=== PATIENT | male | born 1950 | race Caucasian/White ===

== ENCOUNTER 2018-01-28 16:37 | Inpatient (IN) | payer OTHER ==
--- NOTE | 2018-01-28 16:42 | PDOC ---
Attending Attestation - HPI HPI: 01/28/18 18:32 The patient is a 67 year old male with a significant PMH of prostate cancer and HTN brought in by EMS for altered mental status. Patient had come from [place] to see his sister who is currently sick. Patients sister has an aid who noticed the patient was in bed all day and then heard the patient making a lot of commotion on his way to the bathroom earlier today. As per the aid, the patient knew his name and was walking, but was altered prompting the aid to activate EMS. Patient had a tonic clonic seizure en route to the ER that lasted for approximately 1 minute, witnessed by EMS. At presentation, patient is agitated. Allergies: NKA - Physicial Exam PE: 01/28/18 18:32 Vitals: Triage Vital signs reviewed General Appearance: (+) Agitated. (+) Moaning and writhing in pain. Head: Atraumatic, normocephalic Eyes: Pupils equal reactive round, extraocular movement intact Ears: TM's normal bilaterally; Nose: Nares patent bilaterally;no nasal congestion Throat: Posterior oropharynx without erythema, mucous membranes moist, Neck: Supple;No Nuchal rigidity Chest Wall: (+) Bruising to the ribs. Cardiac: Regular rate and rhythm, no murmurs, no rubs, no gallops, Lungs: Clear to auscultation bilateral, good air movement bilaterally, Abdomen: Soft, nondistended, normal bowel sounds, nontender to palpation Extremities: (+) Abrasion to the leg. Full range of motion to all extremities, no cyanosis, clubbing, or edema Skin: Warm and dry, no rashes or lesions, no petechiae Neuro: (+) Altered. (+) Moving all extremities. Psych: normal mood, normal affect <Jaci Linn - Last Filed: 01/28/18 18:35> - Resident Resident Name: Vikas Echeverria - ED Attending Attestation I have performed the following: I have examined & evaluated the patient, The case was reviewed & discussed with the resident, I agree w/resident's findings & plan, Exceptions are as noted - Critical Care Time Total Critical Care Time: 65 Critical Care Statement: The care of this patient involved high complexity decision making to prevent further life threatening deterioration of the patient 's condition and/or to evaluate & treat vital organ system(s) failure or risk of failure. - Medical Decision Making 01/28/18 19:42 The patient is a 67 year old male with a significant PMH of prostate cancer and HTN brought in by EMS for altered mental status. Patient had come from [place] to see his sister who is currently sick. Patients sister has an aid who noticed the patient was in bed all day and then heard the patient making a lot of commotion on his way to the bathroom earlier today. As per the aid, the patient knew his name and was walking, but was altered prompting the aid to activate EMS. Patient had a tonic clonic seizure en route to the ER that lasted for approximately 1 minute, witnessed by EMS. At presentation, patient is agitated. Upon arrival to the ED given altered mental status stat head CT ordered. 2 mg Ativan given for sedation. No bleed noted on head CT. Patient remained agitated not following commands additional 2 mg Ativan given. Patient saturations transiently dropped remained agitated given concern for patient's ability to protect airway decision made to intubate patient Patient intubated successfully. Blood work remarkable for WBC of 34 on secondary survey some ecchymosis noted patient's back decision made to perform cervical spine CT as well as CT IV contrast chest abdomen pelvis CTs pending. Patient has been covered with Zosyn. Neurology has been consult. Patient has been loaded with 1.5 g of Keppra. He is currently intubated on a propofol drip. Dr. Woo to follow up patient's CAT scans. If no acute etiology of patient' s elevated white blood cell count which also may be secondary to seizure, will perform lumbar puncture Patient to be admitted to ICU for definitive management. ICU aware <Wang Lui - Last Filed: 01/28/18 19:44>
[2018-01-28] MEDS ORDERED: SODIUM CHLORIDE 1,000 ML IV SCH (16:45)
--- NOTE | 2018-01-28 16:45 | PDOC ---
History of Present Illness - General Chief Complaint: Seizure Stated Complaint: SEIZURE Time Seen by Provider: 01/28/18 16:41 - History of Present Illness Initial Comments: 01/28/18 20:55 67 yo M w/ a hx of Cabg, HTN, thyroid disease, prostate cancer was brought into the ED from [facility] in an altered state. He was not conversant at any point in the ER. The story from the sister was that the patient went to the bathroom and then they heard a thump. EMS brought the patient in, he was sent to cat scan to r/o stroke and then he started having a tonic clonic seizure. He was given Ativan early in his stay. 01/28/18 20:58 01/28/18 22:24 Past History - Past Medical History Allergies/Adverse Reactions: Allergies Allergy/AdvReac Type Severity Reaction Status Date / Time No Allergy Information Allergy Verified 01/28/18 17:28 Available Home Medications: Ambulatory Orders Clopidogrel Bisulfate [Clopidogrel] 75 mg PO DAILY 01/28/18 Levothyroxine [Synthroid -] 25 mcg PO DAILY 01/28/18 Metoprolol Tartrate [Lopressor -] 25 mg PO BID 01/28/18 Ranitidine [Zantac -] 150 mg PO DAILY 01/28/18 Tadalafil [Cialis] 20 mg PO DAILY 01/28/18 Venlafaxine HCl [Effexor -] 75 mg PO DAILY 01/28/18 Review of Systems - Review of Systems Able to Perform ROS?: No *Physical Exam - Physical Exam Comments: 01/28/18 20:59 GENERAL: Patient is altered, not alert, and rolling around the bed in pain. HEENT: He has blood in his oral cavity from biting his lips. PERRLA. NC/AT. No conjunctival pallor. Sclera are non-icteric. NECK: No JVD. No thyromegaly. No lymphadenopathy. CARDIOVASCULAR: Tachycardic, regular rhythym. No murmurs, rubs, or gallops. Distal pulses are 2 + and symmetric. PULMONARY: Patient has bilateral breath sounds - no crackles, rales or ronchi. ABDOMINAL: Soft. Non-tender. Non-distended. No rebound or guarding. No organomegaly. Normoactive bowel sounds. MUSCULOSKELETAL Normal range of motion at all joints. No bony deformities or tenderness. EXTREMITIES: No cyanosis. No clubbing. No edema. No calf tenderness. SKIN: There is a rash on the R side of the patients back. Warm and dry. Normal capillary refill. NEUROLOGICAL: Normoreflexic in the upper and lower extremities. Toes are down-going bilaterally. Procedures - Intubation Time of Intubation: 18:15 Intubation Method: orotracheal Blade used: Mac Tube Size (Fr): 7.5 Medications: Etomidate, Succinylcholine Tube position @ lip (cm): 24 Tube position confirmed by: Direct visualization, CO2 detector, Chest x-ray, Breath sounds Breath Sounds after Intubation: equal Intubation Complications: no complications Post Intubation Xray: Yes (tube in right place) - Lumbar Puncture Indication: AMS CT Scan: Yes Betadine Prep: Yes Position: Left lateral decubitus Site: L4-L51 Local Anesthesia: 1% Lidocaine with epi Volume(ml): 10 Lumbar Puncture Kit: Adult Needle Size(gauge): 18 Opening Pressure(mmHg): 22 Traumatic Tap: No Tubes Obtained: 4 Clear Fluid: Yes Complications: No ED Treatment Course - LABORATORY CBC & Chemistry Diagram: 01/28/18 17:30 01/28/18 17:30 Medical Decision Making - Medical Decision Making 01/28/18 21:05 Patient arrived to ED altered, he got a head CT, started seizing and was given ativan. Head CT was negative for bleed. Patient was subsequently intubated for agitation in order to get a abraham scan. Abraham scan was negative. Gave the patient a spinal tap to assess for meningitis. Patient admitted to ICU. 01/28/18 22:21 *DC/Admit/Observation/Transfer Diagnosis at time of Disposition: Seizure - Discharge Dispostion Condition at time of disposition: Critical Decision to Admit order: Yes - Referrals - Patient Instructions - Post Discharge Activity
[2018-01-28] MEDS ORDERED: LORazepam 2 MG/ML SDV VIAL ONE ×2 (16:46→17:15)
[2018-01-28] MEDS ORDERED: LORazepam 2 MG/ML SDV VIAL IVPUSH ONE (17:17)
[2018-01-28 17:50] LABS: BASO % 0.5 % (0-2.0); EOS % 0.1 % (0-4.5); HEMATOCRIT 46.9 % (35.4-49); HEMOGLOBIN 15.8 GM/dL (11.7-16.9); LYMPH % 5.9 % (8-40); MCH 29.4 pg (25.7-33.7); MCHC 33.7 g/dl (32.0-35.9); MEAN CELL VOLUME 87.3 fl (80-96); MONO % 6.5 % (3.8-10.2); PLATELET COUNT 328 K/MM3 (134-434); RBC 5.37 M/mm3 (4.00-5.60); RDW 13.4 % (11.9-15.9)
[2018-01-28 17:52] LABS: WHITE BLOOD COUNT 34.2 K/mm3 (4.0-10.0)
[2018-01-28] MEDS ORDERED: RAPID SEQUENCE INTUBATION KIT NR ONE (17:57)
[2018-01-28 17:59] LABS: VENOUS PC02 45.6 mmHg (38-52); VENOUS PO2 35.9 mmHg (28-48)
[2018-01-28] MEDS ORDERED: SUCCINYLCHOLINE CHLORIDE 200 MG/10 ML VIAL IVPUSH ONE (17:59)
[2018-01-28] MEDS ORDERED: ETOMIDATE 40 MG/20 ML VIAL IVPUSH ONE (17:59)
[2018-01-28] MEDS ORDERED: PIPERACILLIN/TAZOB 3.375 GM 3.375 GM in DEXTROSE 5%-WATER - 50 ML IVPB ONE (17:59)
[2018-01-28 18:00] LABS: VENOUS PH 7.16 (7.32-7.42)
[2018-01-28 18:01] LABS: URINE APPEARANCE CLOUDY; URINE BILIRUBIN NEGATIVE (<2.0 mg/dL); URINE COLOR YELLOW; URINE GLUCOSE (UA) 3+ (NEGATIVE); URINE KETONE TRACE (NEGATIVE); URINE LEUK ESTERASE NEGATIVE (NEGATIVE); URINE NITRITE NEGATIVE (NEGATIVE); URINE UROBILINOGEN NEGATIVE mg/dL (0.2-1.0)
[2018-01-28] MEDS ORDERED: PROPOFOL 1,000,000 MCG/100 ML VIAL ONE ×2 (18:02→20:31)
[2018-01-28 18:03] LABS: URINE PROTEIN 2+ (NEGATIVE)
[2018-01-28] MEDS ORDERED: PIPERACILLIN/TAZOB 3.375 GM 3.375 GM/50 ML BAG IVPB ONE (18:03)
[2018-01-28 18:04] LABS: EPI CELLS RARE /HPF (FEW); URINE BACTERIA RARE /hpf (NONE SEEN); URINE HYALINE CAST 7 /lpf; URINE MUCUS RARE
[2018-01-28 18:13] LABS: INR 1.11 (0.83-1.09); PROTHROMBIN TIME (PATIENT) 12.5 SEC (9.7-13.0)
[2018-01-28] MEDS ORDERED: PROPOFOL 1,000,000 MCG/100 ML VIAL IVPB SCH ×2 (18:15→20:15)
[2018-01-28] MEDS ORDERED: levETIRAcetam 500 MG/5 ML INJECTION VIAL IVPB ONE ×2 (18:22→19:47)
[2018-01-28 18:25] LABS: ALBUMIN 4.1 g/dl (3.4-5.0); ANION GAP 23 MMOL/L (8-16); BLOOD UREA NITROGEN 20 mg/dL (7-18); CALCIUM 9.3 mg/dL (8.5-10.1); CHLORIDE 104 mmol/L (98-107); CHOLESTEROL 156 mg/dL (50-200); CO2 16 mmol/L (21-32); CREATININE 1.7 mg/dL (0.7-1.3); GLUCOSE,RANDOM 266 mg/dL (74-106); SGOT/AST 35 U/L (15-37); SGPT/ALT 44 U/L (12-78); SODIUM 143 mmol/L (136-145); TRIGLYCERIDES 191 mg/dL (35-160)
[2018-01-28 18:27] LABS: ALK PHOS 139 U/L (45-117); BILIRUBIN,TOTAL 0.6 mg/dL (0.2-1.0); HDL CHOLESTEROL 45 mg/dL (40-60); TOT PROT 7.6 g/dl (6.4-8.2)
[2018-01-28 19:42] LABS: ARTERIAL BLD GAS O2 SATURATION 99.5 % (90-98.9); ARTERIAL BLOOD GAS BASE EXCESS -6.1 meq/l (-2-2); ARTERIAL BLOOD GAS PCO2 33.5 mmHg (35-45); ARTERIAL BLOOD GAS pH 7.35 (7.35-7.45); CARBOXYHEMOGLOBIN 1.3 gm% (0.5-2.0)
--- NOTE | 2018-01-28 19:45 | PN ---
Teaching Attending Note Name of Resident: Jozef Lay ATTENDING PHYSICIAN STATEMENT I saw and evaluated the patient. I reviewed the resident's note and discussed the case with the resident. I agree with the resident's findings and plan as documented. SUBJECTIVE: Patient is a 67 year old man with a significant PMH of metastatic prostate cancer and HTN brought in by EMS for altered mental status. Patient had come from [place] to see his sister who is currently sick. Patients sister has an aid who noticed the patient was in bed all day and then heard the patient making a lot of commotion on his way to the bathroom earlier today. As per the aid, the patient knew his name and was walking, but was altered prompting the aid to activate EMS. Patient had a tonic clonic seizure en route to the ER that lasted for approximately 1 minute, witnessed by EMS. At presentation, patient is agitated and had a high AG metabolic acidosis as well as severe lactic acidosis. He was intubated in the ER and is on propofol. OBJECTIVE: Intubated and sedated on propofol Vital Signs Period Temp Pulse Resp BP Sys/Quintero Pulse Ox Last 24 Hr 99.6 F-99.6 F 120-147 12-30 157-213/93-136 100-100 HEENT: No Jaundice, eye redness or discharge, PERRLA, Normocephalic, atraumatic. External ears are normal. No nasal discharge. Neck: Supple, nontender. No palpable adenopathy or thyromegaly. No JVD Chest: Good effort. Clear to auscultation and percussion. Heart: Regular. No S3, rub or murmur Abdomen: Not distended, soft, nontender and no HSM. No rebound or guarding. Normoactive bowel sounds. Ext: Peripheral pulses intact. No leg edema. Skin: Warm and dry. No petechiae, rash or ecchymosis. Neuro: Sedated on propofol. Current Medications Generic Name Dose Route Start Last Admin Trade Name Freq PRN Reason Stop Dose Admin Sodium Chloride 1,000 mls @ 42 mls/hr 01/28/18 16:45 01/28/18 17:30 Normal Saline - IV 42 mls/hr ASDIR ANUPAMA Administration Propofol 1,000,000 mcg in 100 mls @ 3.946 mls/hr 01/28/18 18:15 01/28/18 18: 53 Diprivan - IVPB 40 mcg/kg/min TITR ANUPAMA 31.57 mls/hr Titration Protocol 5 MCG/KG/MIN Home Medications Medication Instructions Recorded Clopidogrel Bisulfate [Clopidogrel] 75 mg PO DAILY 01/28/18 Levothyroxine [Synthroid -] 25 mcg PO DAILY 01/28/18 Metoprolol Tartrate [Lopressor -] 25 mg PO BID 01/28/18 Ranitidine [Zantac -] 150 mg PO DAILY 01/28/18 Tadalafil [Cialis] 20 mg PO DAILY 01/28/18 Venlafaxine HCl [Effexor -] 75 mg PO DAILY 01/28/18 Abnormal Lab Results 01/28/18 01/28/18 01/28/18 17:30 17:30 17:30 WBC 34.2 H* Absolute Neuts (auto) 29.8 H Neutrophils % 87.0 H Lymphocytes % 5.9 L INR 1.11 H VBG pH Mixed VBG HCO3 Carbon Dioxide 16 L Anion Gap 23 H BUN 20 H Creatinine 1.7 H Random Glucose 266 H Lactic Acid Alkaline Phosphatase 139 H Creatine Kinase 370 H Troponin I 0.08 H Triglycerides 191 H Total LDL Cholesterol 101 H Urine Protein Urine Glucose (UA) Urine Ketones Urine Blood 01/28/18 01/28/18 01/28/18 17:30 17:41 17:41 WBC Absolute Neuts (auto) Neutrophils % Lymphocytes % INR VBG pH 7.16 L* Mixed VBG HCO3 15.8 L Carbon Dioxide Anion Gap BUN Creatinine Random Glucose Lactic Acid 13.0 H* Alkaline Phosphatase Creatine Kinase Troponin I Triglycerides Total LDL Cholesterol Urine Protein 2+ H Urine Glucose (UA) 3+ H Urine Ketones Trace H Urine Blood 2+ H ASSESSMENT AND PLAN: 1. Sepsis and AMS - Head CT scan does not show any acute abnormality. Patient is getting a spinal tap to rule out meningitis. Already got Zosyn, but will also give Ampicillin, Vancomycin and Ceftriaxone. Seizure and metastatic prostate cancer may be contributing to AMS. No history of DM obtained - we are checking with his pharmacy for medication list. Findings suggest "euglycemic" DKA - the high AG is not entirely explainable by lactic acidosis. Will treat with IV NS, IV insulin and monitor BMP according to DKA protocol in the ICU. Continue Keppra 750 mg IV q 12 hours. Abnormal LFTs johnny be due to sepsis - will trend LFTs. Elevated troponin may signal demand ischemia and effects of INGE - will rule out ACS. No changes of ACS on EKG. Consult neurology and ID. 2. INGE - Likely chiefly due to dehydration but proteinuria suggests underlying kidney disease. Continue IV fluids and consult nephrology. Avoid nephrotoxic agents such as NSAIDS, aminoglycosides, contrast dyes and certain Alternative medicine products. 3. Obesity - Will provide patient all the necessary assistance , counseling and positive reinforcement to facilitate weight loss. Consult matrix bath attendant. 4. DVT prophylaxis - Heparin 5000u sq tid. 5. Advance directives - Full code
[2018-01-28 20:24] LABS: COCAINE, UR NEGATIVE ng/ml (CUTOFF=300); OPIATES, URI NEGATIVE ng/ml (CUTOFF=300); PHENCYCLIDINE,URINE NEGATIVE ng/ml (CUTOFF=25); URINE AMPHETAMINES NEGATIVE ng/ml (CUTOFF=500); URINE BARBITURATES NEGATIVE ng/ml (CUTOFF=200); URINE BENZODIAZEPINES NEGATIVE ng/ml (CUTOFF=200)
[2018-01-28 20:25] LABS: METHADONE, UR NEGATIVE ng/ml (CUTOFF=300)
[2018-01-28] MEDS ORDERED: VANCOMYCIN 2,000 MG in DEXTROSE 5%-WATER - 500 ML IVPB ONE (20:49)
[2018-01-28] MEDS ORDERED: ACETAMINOPHEN 1000 MG/100 ML VIAL (NON FORMULARY) IVPB ONE (20:54)
[2018-01-28] MEDS ORDERED: ACETAMINOPHEN INJECTION 100 ML IVPB ONE (20:55)
[2018-01-28] MEDS ORDERED: CEFTRIAXONE 2 GM-D5W BAG 2 GM/50 ML BAG IVPB ONE (21:00)
[2018-01-28] MEDS ORDERED: AMPICILLIN SODIUM 2 GM VIAL ONE (21:25)
[2018-01-28] MEDS ORDERED: CEFTRIAXONE 2 GM/100 ML BAG IVPB ONE (21:26)
--- NOTE | 2018-01-28 21:36 | HP ---
CHIEF COMPLAINT: Seizure, AMS PCP: HISTORY OF PRESENT ILLNESS: 67 yo male with PMH metastatic prostate CA, Hypothyroid, HTN, presented to the ED via EMS after being noted to have AMS at home. History from ED note and signout as pt intubated and sedated. Pt reportedly spent a lot of the day in bed. He is in town visiting his sister. His sister's aide reported he was making a lot of commotion on the way to the bathroom. Pt was oriented to self but noted to be altered so EMS was called. He apparently had a witnessed seizure on the way to the ED. Further history unknown. Discussed with ED provider who states the pts sister is coming in. ER course was notable for: (1) VBG pH 7.16, Pt agitated, Intubated and Sedated (2) CT Head, neck, chest, abdomen: no hemorrhage noted, left renal cyst (3) Zosyn Recent Travel: PAST MEDICAL HISTORY: Metastatic Prostate CA Hypothyroid HTN PAST SURGICAL HISTORY: Pt with hx of CABG as per sister Social History: Smoking: unknown Alcohol: unknown Drugs: unknown TOX screen negative Family History: Allergies No Allergy Information Available Allergy (Verified 01/28/18 17:28) HOME MEDICATIONS: Home Medications Medication Instructions Recorded Clopidogrel Bisulfate [Clopidogrel] 75 mg PO DAILY 01/28/18 Levothyroxine [Synthroid -] 25 mcg PO DAILY 01/28/18 Metoprolol Tartrate [Lopressor -] 25 mg PO BID 01/28/18 Ranitidine [Zantac -] 150 mg PO DAILY 01/28/18 Tadalafil [Cialis] 20 mg PO DAILY 01/28/18 Venlafaxine HCl [Effexor -] 75 mg PO DAILY 01/28/18 REVIEW OF SYSTEMS Unable to obtain PHYSICAL EXAMINATION Vital Signs - 24 hr 01/28/18 01/28/18 01/28/18 16:45 16:47 17:00 Temperature 99.6 F 99.6 F Pulse Rate 147 H Pulse Rate [ Apical] Respiratory 24 Rate Blood Pressure 157/97 Blood Pressure [Left Arm] O2 Sat by Pulse 100 100 100 Oximetry (%) 01/28/18 01/28/18 01/28/18 17:15 18:00 18:10 Temperature Pulse Rate Pulse Rate [ 135 H 130 H 133 H Apical] Respiratory 30 H 12 20 Rate Blood Pressure Blood Pressure 157/98 197/110 172/105 [Left Arm] O2 Sat by Pulse 100 100 Oximetry (%) 01/28/18 01/28/18 01/28/18 18:15 18:30 18:43 Temperature Pulse Rate Pulse Rate [ 129 H 120 H Apical] Respiratory 18 12 12 Rate Blood Pressure Blood Pressure 166/93 179/120 [Left Arm] O2 Sat by Pulse 100 100 Oximetry (%) 01/28/18 01/28/18 01/28/18 19:11 19:15 19:30 Temperature Pulse Rate Pulse Rate [ 128 H 116 H 125 H Apical] Respiratory 16 18 21 Rate Blood Pressure Blood Pressure 213/136 172/103 171/105 [Left Arm] O2 Sat by Pulse 100 100 100 Oximetry (%) 01/28/18 19:46 Temperature Pulse Rate Pulse Rate [ 125 H Apical] Respiratory 16 Rate Blood Pressure Blood Pressure 130/91 [Left Arm] O2 Sat by Pulse 100 Oximetry (%) GENERAL: Intubated and sedated no acute distress HEAD: Normocephalic, atraumatic. EYES: PERRL, no scleral icterus EARS, NOSE, THROAT: ET tube in place, oropharynx clear without exudates. Moist mucous membranes. NECK: supple without lymphadenopathy LUNGS: mechanical breath sounds but otherwise CTA b/l, no crackles or wheezes HEART: Tachycardic, Regular rhythm, normal S1 and S2 without murmur, rub or gallop. ABDOMEN: Soft, nondistended, normoactive bowel sounds MUSCULOSKELETAL: No bony deformities or tenderness. No CVA tenderness. UPPER EXTREMITIES: 2+ pulses, warm, well-perfused. No cyanosis. No clubbing. No peripheral edema. LOWER EXTREMITIES: 2+ pulses, warm, well-perfused. No calf tenderness. No peripheral edema. NEUROLOGICAL: Intubated and sedated, grasp reflex noted SKIN: Warm, dry, normal turgor, no rashes or lesions noted Laboratory Results - last 24 hr 01/28/18 01/28/18 01/28/18 17:30 17:30 17:30 WBC 34.2 H* RBC 5.37 Hgb 15.8 Hct 46.9 MCV 87.3 MCH 29.4 MCHC 33.7 RDW 13.4 Plt Count 328 MPV 10.0 Absolute Neuts (auto) 29.8 H Neutrophils % 87.0 H Neutrophils % (Manual) 79.0 Band Neutrophils % 8.0 Lymphocytes % 5.9 L Lymphocytes % (Manual) 6.0 L Monocytes % 6.5 Monocytes % (Manual) 7 Eosinophils % 0.1 Eosinophils % (Manual) 0.0 Basophils % 0.5 Basophils % (Manual) 0.0 Nucleated RBC % 0 PT with INR 12.50 INR 1.11 H Anticoagulation Therapy Puncture Site ABG pH ABG pCO2 at Pt Temp ABG pO2 at Pt Temp ABG HCO3 ABG O2 Sat (Measured) ABG O2 Content ABG Base Excess Shashi Test VBG pH POC VBG pCO2 POC VBG pO2 Mixed VBG HCO3 Carboxyhemoglobin Methemoglobin O2 Delivery Device Oxygen Flow Rate Vent Mode Vent Rate Mechanical Rate Pressure Support Vent Sodium 143 Potassium 4.0 Chloride 104 Carbon Dioxide 16 L Anion Gap 23 H BUN 20 H Creatinine 1.7 H Creat Clearance w eGFR 40.65 Random Glucose 266 H Lactic Acid Calcium 9.3 Total Bilirubin 0.6 AST 35 ALT 44 Alkaline Phosphatase 139 H Creatine Kinase 370 H Creatine Kinase Index 0.5 CK-MB (CK-2) 1.95 Troponin I 0.08 H Total Protein 7.6 Albumin 4.1 Triglycerides 191 H Cholesterol 156 Total LDL Cholesterol 101 H HDL Cholesterol 45 TSH Urine Color Urine Appearance Urine pH Ur Specific [place] Urine Protein Urine Glucose (UA) Urine Ketones Urine Blood Urine Nitrite Urine Bilirubin Urine Urobilinogen Ur Leukocyte Esterase Urine WBC (Auto) Urine RBC (Auto) Ur Epithelial Cells Urine Bacteria Hyaline Casts Urine Mucus Opiates Screen Methadone Screen Barbiturate Screen Phencyclidine Screen Ur Amphetamines Screen MDMA (Ecstasy) Screen Benzodiazepines Screen Cocaine Screen U Marijuana (THC) Screen Blood Type Antibody Screen 01/28/18 01/28/18 01/28/18 17:30 17:30 17:30 WBC RBC Hgb Hct MCV MCH MCHC RDW Plt Count MPV Absolute Neuts (auto) Neutrophils % Neutrophils % (Manual) Band Neutrophils % Lymphocytes % Lymphocytes % (Manual) Monocytes % Monocytes % (Manual) Eosinophils % Eosinophils % (Manual) Basophils % Basophils % (Manual) Nucleated RBC % PT with INR INR Anticoagulation Therapy Puncture Site ABG pH ABG pCO2 at Pt Temp ABG pO2 at Pt Temp ABG HCO3 ABG O2 Sat (Measured) ABG O2 Content ABG Base Excess Shashi Test VBG pH POC VBG pCO2 POC VBG pO2 Mixed VBG HCO3 Carboxyhemoglobin Methemoglobin O2 Delivery Device Oxygen Flow Rate Vent Mode Vent Rate Mechanical Rate Pressure Support Vent Sodium Potassium Chloride Carbon Dioxide Anion Gap BUN Creatinine Creat Clearance w eGFR Random Glucose Lactic Acid 13.0 H* Calcium Total Bilirubin AST ALT Alkaline Phosphatase Creatine Kinase Creatine Kinase Index CK-MB (CK-2) Troponin I Total Protein Albumin Triglycerides Cholesterol Total LDL Cholesterol HDL Cholesterol TSH 2.58 Urine Color Urine Appearance Urine pH Ur Specific [place] Urine Protein Urine Glucose (UA) Urine Ketones Urine Blood Urine Nitrite Urine Bilirubin Urine Urobilinogen Ur Leukocyte Esterase Urine WBC (Auto) Urine RBC (Auto) Ur Epithelial Cells Urine Bacteria Hyaline Casts Urine Mucus Opiates Screen Methadone Screen Barbiturate Screen Phencyclidine Screen Ur Amphetamines Screen MDMA (Ecstasy) Screen Benzodiazepines Screen Cocaine Screen U Marijuana (THC) Screen Blood Type A POSITIVE Antibody Screen Negative 01/28/18 01/28/18 01/28/18 17:41 17:41 19:20 WBC RBC Hgb Hct MCV MCH MCHC RDW Plt Count MPV Absolute Neuts (auto) Neutrophils % Neutrophils % (Manual) Band Neutrophils % Lymphocytes % Lymphocytes % (Manual) Monocytes % Monocytes % (Manual) Eosinophils % Eosinophils % (Manual) Basophils % Basophils % (Manual) Nucleated RBC % PT with INR INR Anticoagulation Therapy No Result Required. Puncture Site No Result Required. ABG pH 7.35 ABG pCO2 at Pt Temp 33.5 L ABG pO2 at Pt Temp 221.0 H* ABG HCO3 18.1 L ABG O2 Sat (Measured) 99.5 H ABG O2 Content 21.0 ABG Base Excess -6.1 L Shashi Test No Result Required. VBG pH 7.16 L* POC VBG pCO2 45.6 POC VBG pO2 35.9 Mixed VBG HCO3 15.8 L Carboxyhemoglobin 1.3 Methemoglobin 1.7 H O2 Delivery Device No Result Required. Oxygen Flow Rate No Result Required. Vent Mode No Result Required. Vent Rate No Result Required. Mechanical Rate No Result Required. Pressure Support Vent No Result Required. Sodium Potassium Chloride Carbon Dioxide Anion Gap BUN Creatinine Creat Clearance w eGFR Random Glucose Lactic Acid Calcium Total Bilirubin AST ALT Alkaline Phosphatase Creatine Kinase Creatine Kinase Index CK-MB (CK-2) Troponin I Total Protein Albumin Triglycerides Cholesterol Total LDL Cholesterol HDL Cholesterol TSH Urine Color Yellow Urine Appearance Cloudy Urine pH 5.0 Ur Specific [place] 1.013 Urine Protein 2+ H Urine Glucose (UA) 3+ H Urine Ketones Trace H Urine Blood 2+ H Urine Nitrite Negative Urine Bilirubin Negative Urine Urobilinogen Negative Ur Leukocyte Esterase Negative Urine WBC (Auto) 2 Urine RBC (Auto) 2 Ur Epithelial Cells Rare Urine Bacteria Rare Hyaline Casts 7 Urine Mucus Rare Opiates Screen Methadone Screen Barbiturate Screen Phencyclidine Screen Ur Amphetamines Screen MDMA (Ecstasy) Screen Benzodiazepines Screen Cocaine Screen U Marijuana (THC) Screen Blood Type Antibody Screen 01/28/18 01/28/18 19:38 19:39 WBC RBC Hgb Hct MCV MCH MCHC RDW Plt Count MPV Absolute Neuts (auto) Neutrophils % Neutrophils % (Manual) Band Neutrophils % Lymphocytes % Lymphocytes % (Manual) Monocytes % Monocytes % (Manual) Eosinophils % Eosinophils % (Manual) Basophils % Basophils % (Manual) Nucleated RBC % PT with INR INR Anticoagulation Therapy Puncture Site ABG pH ABG pCO2 at Pt Temp ABG pO2 at Pt Temp ABG HCO3 ABG O2 Sat (Measured) ABG O2 Content ABG Base Excess Shashi Test VBG pH POC VBG pCO2 POC VBG pO2 Mixed VBG HCO3 Carboxyhemoglobin Methemoglobin O2 Delivery Device Oxygen Flow Rate Vent Mode Vent Rate Mechanical Rate Pressure Support Vent Sodium Potassium Chloride Carbon Dioxide Anion Gap BUN Creatinine Creat Clearance w eGFR Random Glucose Lactic Acid 7.8 H* Calcium Total Bilirubin AST ALT Alkaline Phosphatase Creatine Kinase Creatine Kinase Index CK-MB (CK-2) Troponin I Total Protein Albumin Triglycerides Cholesterol Total LDL Cholesterol HDL Cholesterol TSH Urine Color Urine Appearance Urine pH Ur Specific [place] Urine Protein Urine Glucose (UA) Urine Ketones Urine Blood Urine Nitrite Urine Bilirubin Urine Urobilinogen Ur Leukocyte Esterase Urine WBC (Auto) Urine RBC (Auto) Ur Epithelial Cells Urine Bacteria Hyaline Casts Urine Mucus Opiates Screen Negative Methadone Screen Negative Barbiturate Screen Negative Phencyclidine Screen Negative Ur Amphetamines Screen Negative MDMA (Ecstasy) Screen Negative Benzodiazepines Screen Negative Cocaine Screen Negative U Marijuana (THC) Screen Negative Blood Type Antibody Screen ASSESSMENT/PLAN: 67 yo male with PMH Prostate CA, Hypothyroid, HTN admitted to the ICU with AMS s /p seizure, sepsis possibly secondary to meningitis. Sepsis unknown source: possibly meningitis -Pt arrived to ED in Post-ictal state, noted to be agitated as well, unable to give history -Pt intubated and sedated in ED -WBC 34, LA 13, Absolute neutrophil count 29.8, afebrile on arrival to ED, will repeat temp now as not recorded in EMR over last 5 hours -Romano CT: no acute bleed, some b/l atelecasis in the lung bases, large left renal cyst, diverticulosis with no evidence of diverticulitits -Given Zosyn in ED -Pt needs spinal tap GABRIEL -Will send CSF profile for cell counts, glucose, total protein, cultures, Lactic acid, EBV, HSV, Lyme, VDRL, West Nile -Add Vancomycin 15 mg/kg (2gm) IV stat following spinal tap -Cetfriaxone 2 gm IV stat following spinal tap -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 as pt is 67 with medical history not completely known -ID consult Ordered, will await for further coverage recommendations Seizure, unsure if new onset -Seizure activity could be secondary to meningitis, vs prior/new onset seizure disorder, vs hypoglycemia (unlikely) -pt received ativan and keppra loading dose in ED -ED consulted neurology for evaluation -Will continue Keppra 750 mg IV BID -Awaiting neurology recommendations for further workup Mildly elevated blood glucose with elevated anion gap -Pt sister denies hx of Diabetes -Medication bottles gathered from pt's personal belongings did not contain any diabetes meds -Anion gap 23 could be secondary Lactic acidosis, LA 13 in ED -UA noted with 3+ glucose and trace ketones -A1C ordered in addition to repeat BMP stat Hypothyroid -pt on Synthroid 25 mcg PO daily at home -TSH noted 2.58 -Will restart synthroid, confirmed with pharmacy, can be given via OG tube if pt requires continued mechanical ventilation and ET tube HTN -pt on Lopressor 25 mg PO BID at home, intubated/NPO -Pt arrived with systolic in 190s -Currently 150s systolic -No hemorrhage noted on head CT -Will hold bp meds for now as to not lower bp too quickly -Can restart in AM IV DVT Prophylaxis -Heparin 5000 units SQ TID FEN -Fluids: NS @ 100 cc/hr -Electrolytes: No electrolyte abnormalities, repeat BMP with Mg and Phos -Nutrition: NPO Disposition ICU Visit type - Emergency Visit Emergency Visit: Yes ED Registration Date: 01/28/18 Care time: The patient presented to the Emergency Department on the above date and was hospitalized for further evaluation of their emergent condition. - New Patient This patient is new to me today: Yes Date on this admission: 01/29/18 - Critical Care Critical Care patient: Yes Total Critical Care Time (in minutes): 120 Critical Care Statement: The care of this patient involved high complexity decision making to prevent further life threatening deterioration of the patient 's condition and/or to evaluate & treat vital organ system(s) failure or risk of failure. Hospitalist Screening - Colonoscopy Questionnaire Colonoscopy Questionnaire: Colonoscopy Questionnaire - Patient: 50 - 75 years old and never had a screening colonoscopy: Unknown History of colon or rectal polyps, or CA: Unknown History of IBD, Crohn's disease or UC: Unknown History of abdominal radiation therapy as a child: Unknown - Relative: 1 with colon or rectal CA, or polyps at age 60 or younger: Unknown Colon or rectal CA diagnosed at age 45 or younger: Unknown Multiple relatives with colon or rectal CA: Unknown - Outcome: Screening Result: Negative Screen
[2018-01-28] MEDS: AMPICILLIN - 2 GM in SODIUM CHLORIDE 100 ML IVPB SCH (21:38)
[2018-01-28] MEDS ORDERED: CHLORHEXIDINE GLUCONATE 4% CLEANSER FOR DECOLONIZATION TP SCH (22:00)
[2018-01-28] MEDS ORDERED: SODIUM CHLORIDE IVPB SCH (22:00)
[2018-01-28] MEDS ORDERED: AMPICILLIN IVPB SCH (22:00)
[2018-01-28 22:31] LABS: CSF APPEARANCE CLEAR; CSF COLOR COLORLESS; CSF WBC 1
[2018-01-28 22:42] LABS: GLUCOSE,CSF 133 mg/dL (50-80)
[2018-01-28 22:54] LABS: ANION GAP 16 MMOL/L (8-16); BLOOD UREA NITROGEN 20 mg/dL (7-18); CALCIUM 8.2 mg/dL (8.5-10.1); CHLORIDE 108 mmol/L (98-107); CO2 19 mmol/L (21-32); CREATININE 1.1 mg/dL (0.7-1.3); GLUCOSE,RANDOM 148 mg/dL (74-106); POTASSIUM 3.5 mmol/L (3.5-5.1); SODIUM 143 mmol/L (136-145)
[2018-01-28 22:56] LABS: MAGNESIUM 2.5 mg/dL (1.8-2.4); PHOSPHOROUS 2.5 mg/dL (2.5-4.9)
--- NOTE | 2018-01-28 22:57 | CONSULT ---
Consultation: REQUESTING PROVIDER: CONSULT REQUEST: ICU HISTORY OF PRESENT ILLNESS: The patient is a 67 yo male with PMH prostate CA, hypothyroidism, HTN, CABG, presented to the hospital for AMS, s/p seizure in ambulance on route to hospital and another episode in ED. He was given Ativan 2 mg x 2 and Keppra 1500 mg IV and intubated for airway protection. The patient was found to have fever 101.7F, CT head, CT chest, abdomen/pelvis CT, c-spine CT no acute pathology, ekg no acute changes, labs: WBC 34.2, neut 87, AG 23, Cr 1.7, BUN 20 , glu 266, LA 7.8, Alk. Phos 139, CK 370, trop 0.08, CSF pending. On arrival to ICU the patient is intubated, on sedation, VS: BP 142/84, HR 119, vent settings:12/450/50/5. Repeated CMP: AG 16, BUN 20, Cr 1.1, trop 0.42. History is taken from medical documentation, no family at bedside. PSH/FH/SH: unknown REVIEW OF SYSTEMS: N/A PHYSICAL EXAMINATION Vital Signs - 24 hr 01/28/18 01/28/18 01/28/18 16:45 16:47 17:00 Temperature 99.6 F 99.6 F Pulse Rate 147 H Pulse Rate [ Apical] Respiratory 24 Rate Blood Pressure 157/97 Blood Pressure [Left Arm] O2 Sat by Pulse 100 100 100 Oximetry (%) 01/28/18 01/28/18 01/28/18 17:15 18:00 18:10 Temperature Pulse Rate Pulse Rate [ 135 H 130 H 133 H Apical] Respiratory 30 H 12 20 Rate Blood Pressure Blood Pressure 157/98 197/110 172/105 [Left Arm] O2 Sat by Pulse 100 100 Oximetry (%) 01/28/18 01/28/18 01/28/18 18:15 18:30 18:43 Temperature Pulse Rate Pulse Rate [ 129 H 120 H Apical] Respiratory 18 12 12 Rate Blood Pressure Blood Pressure 166/93 179/120 [Left Arm] O2 Sat by Pulse 100 100 Oximetry (%) 01/28/18 01/28/18 01/28/18 19:11 19:15 19:30 Temperature Pulse Rate Pulse Rate [ 128 H 116 H 125 H Apical] Respiratory 16 18 21 Rate Blood Pressure Blood Pressure 213/136 172/103 171/105 [Left Arm] O2 Sat by Pulse 100 100 100 Oximetry (%) 01/28/18 01/28/18 01/28/18 19:46 22:00 22:46 Temperature 101.7 F H Pulse Rate 119 H Pulse Rate [ 125 H 121 H Apical] Respiratory 16 18 20 Rate Blood Pressure 142/84 Blood Pressure 130/91 131/90 [Left Arm] O2 Sat by Pulse 100 100 99 Oximetry (%) 01/28/18 22:49 Temperature Pulse Rate Pulse Rate [ Apical] Respiratory 24 Rate Blood Pressure Blood Pressure [Left Arm] O2 Sat by Pulse Oximetry (%) GENERAL: Sedated, intubated. HEAD: Normal with no signs of trauma. EYES: Pupils equal, round and reactive to light. EARS, NOSE, THROAT: Oropharynx clear without exudates. NECK: Supple without lymphadenopathy, JVD, or masses. LUNGS: Breath sounds equal, clear to auscultation bilaterally. No wheezes, and no crackles. No accessory muscle use. HEART: Regular rate and rhythm, normal S1 and S2 without murmur, rub or gallop. ABDOMEN: Soft, nontender, not distended, normoactive bowel sounds, no guarding, no rebound, no masses. UPPER EXTREMITIES: No peripheral edema. LOWER EXTREMITIES: 2+ pulses, no peripheral edema. NEUROLOGICAL: Sedated SKIN: Warm, dry, longitudinal scar in chest, another one below umbilicus, no rash. Laboratory Results - last 24 hr 01/28/18 01/28/18 01/28/18 17:30 17:30 17:30 WBC 34.2 H* RBC 5.37 Hgb 15.8 Hct 46.9 MCV 87.3 MCH 29.4 MCHC 33.7 RDW 13.4 Plt Count 328 MPV 10.0 Absolute Neuts (auto) 29.8 H Neutrophils % 87.0 H Neutrophils % (Manual) 79.0 Band Neutrophils % 8.0 Lymphocytes % 5.9 L Lymphocytes % (Manual) 6.0 L Monocytes % 6.5 Monocytes % (Manual) 7 Eosinophils % 0.1 Eosinophils % (Manual) 0.0 Basophils % 0.5 Basophils % (Manual) 0.0 Nucleated RBC % 0 PT with INR 12.50 INR 1.11 H Anticoagulation Therapy Puncture Site ABG pH ABG pCO2 at Pt Temp ABG pO2 at Pt Temp ABG HCO3 ABG O2 Sat (Measured) ABG O2 Content ABG Base Excess Shashi Test VBG pH POC VBG pCO2 POC VBG pO2 Mixed VBG HCO3 Carboxyhemoglobin Methemoglobin O2 Delivery Device Oxygen Flow Rate Vent Mode Vent Rate Mechanical Rate Pressure Support Vent Sodium 143 Potassium 4.0 Chloride 104 Carbon Dioxide 16 L Anion Gap 23 H BUN 20 H Creatinine 1.7 H Creat Clearance w eGFR 40.65 Random Glucose 266 H Lactic Acid Calcium 9.3 Total Bilirubin 0.6 AST 35 ALT 44 Alkaline Phosphatase 139 H Creatine Kinase 370 H Creatine Kinase Index 0.5 CK-MB (CK-2) 1.95 Troponin I 0.08 H Total Protein 7.6 Albumin 4.1 Triglycerides 191 H Cholesterol 156 Total LDL Cholesterol 101 H HDL Cholesterol 45 TSH Urine Color Urine Appearance Urine pH Ur Specific [place] Urine Protein Urine Glucose (UA) Urine Ketones Urine Blood Urine Nitrite Urine Bilirubin Urine Urobilinogen Ur Leukocyte Esterase Urine WBC (Auto) Urine RBC (Auto) Ur Epithelial Cells Urine Bacteria Hyaline Casts Urine Mucus CSF Appearance CSF Color CSF WBC CSF RBC CSF Glucose CSF Total Protein Opiates Screen Methadone Screen Barbiturate Screen Phencyclidine Screen Ur Amphetamines Screen MDMA (Ecstasy) Screen Benzodiazepines Screen Cocaine Screen U Marijuana (THC) Screen Blood Type Antibody Screen 01/28/18 01/28/18 01/28/18 17:30 17:30 17:30 WBC RBC Hgb Hct MCV MCH MCHC RDW Plt Count MPV Absolute Neuts (auto) Neutrophils % Neutrophils % (Manual) Band Neutrophils % Lymphocytes % Lymphocytes % (Manual) Monocytes % Monocytes % (Manual) Eosinophils % Eosinophils % (Manual) Basophils % Basophils % (Manual) Nucleated RBC % PT with INR INR Anticoagulation Therapy Puncture Site ABG pH ABG pCO2 at Pt Temp ABG pO2 at Pt Temp ABG HCO3 ABG O2 Sat (Measured) ABG O2 Content ABG Base Excess Shashi Test VBG pH POC VBG pCO2 POC VBG pO2 Mixed VBG HCO3 Carboxyhemoglobin Methemoglobin O2 Delivery Device Oxygen Flow Rate Vent Mode Vent Rate Mechanical Rate Pressure Support Vent Sodium Potassium Chloride Carbon Dioxide Anion Gap BUN Creatinine Creat Clearance w eGFR Random Glucose Lactic Acid 13.0 H* Calcium Total Bilirubin AST ALT Alkaline Phosphatase Creatine Kinase Creatine Kinase Index CK-MB (CK-2) Troponin I Total Protein Albumin Triglycerides Cholesterol Total LDL Cholesterol HDL Cholesterol TSH 2.58 Urine Color Urine Appearance Urine pH Ur Specific [place] Urine Protein Urine Glucose (UA) Urine Ketones Urine Blood Urine Nitrite Urine Bilirubin Urine Urobilinogen Ur Leukocyte Esterase Urine WBC (Auto) Urine RBC (Auto) Ur Epithelial Cells Urine Bacteria Hyaline Casts Urine Mucus CSF Appearance CSF Color CSF WBC CSF RBC CSF Glucose CSF Total Protein Opiates Screen Methadone Screen Barbiturate Screen Phencyclidine Screen Ur Amphetamines Screen MDMA (Ecstasy) Screen Benzodiazepines Screen Cocaine Screen U Marijuana (THC) Screen Blood Type A POSITIVE Antibody Screen Negative 01/28/18 01/28/18 01/28/18 17:41 17:41 19:20 WBC RBC Hgb Hct MCV MCH MCHC RDW Plt Count MPV Absolute Neuts (auto) Neutrophils % Neutrophils % (Manual) Band Neutrophils % Lymphocytes % Lymphocytes % (Manual) Monocytes % Monocytes % (Manual) Eosinophils % Eosinophils % (Manual) Basophils % Basophils % (Manual) Nucleated RBC % PT with INR INR Anticoagulation Therapy No Result Required. Puncture Site No Result Required. ABG pH 7.35 ABG pCO2 at Pt Temp 33.5 L ABG pO2 at Pt Temp 221.0 H* ABG HCO3 18.1 L ABG O2 Sat (Measured) 99.5 H ABG O2 Content 21.0 ABG Base Excess -6.1 L Shashi Test No Result Required. VBG pH 7.16 L* POC VBG pCO2 45.6 POC VBG pO2 35.9 Mixed VBG HCO3 15.8 L Carboxyhemoglobin 1.3 Methemoglobin 1.7 H O2 Delivery Device No Result Required. Oxygen Flow Rate No Result Required. Vent Mode No Result Required. Vent Rate No Result Required. Mechanical Rate No Result Required. Pressure Support Vent No Result Required. Sodium Potassium Chloride Carbon Dioxide Anion Gap BUN Creatinine Creat Clearance w eGFR Random Glucose Lactic Acid Calcium Total Bilirubin AST ALT Alkaline Phosphatase Creatine Kinase Creatine Kinase Index CK-MB (CK-2) Troponin I Total Protein Albumin Triglycerides Cholesterol Total LDL Cholesterol HDL Cholesterol TSH Urine Color Yellow Urine Appearance Cloudy Urine pH 5.0 Ur Specific [place] 1.013 Urine Protein 2+ H Urine Glucose (UA) 3+ H Urine Ketones Trace H Urine Blood 2+ H Urine Nitrite Negative Urine Bilirubin Negative Urine Urobilinogen Negative Ur Leukocyte Esterase Negative Urine WBC (Auto) 2 Urine RBC (Auto) 2 Ur Epithelial Cells Rare Urine Bacteria Rare Hyaline Casts 7 Urine Mucus Rare CSF Appearance CSF Color CSF WBC CSF RBC CSF Glucose CSF Total Protein Opiates Screen Methadone Screen Barbiturate Screen Phencyclidine Screen Ur Amphetamines Screen MDMA (Ecstasy) Screen Benzodiazepines Screen Cocaine Screen U Marijuana (THC) Screen Blood Type Antibody Screen 01/28/18 01/28/18 01/28/18 19:38 19:39 20:00 WBC RBC Hgb Hct MCV MCH MCHC RDW Plt Count MPV Absolute Neuts (auto) Neutrophils % Neutrophils % (Manual) Band Neutrophils % Lymphocytes % Lymphocytes % (Manual) Monocytes % Monocytes % (Manual) Eosinophils % Eosinophils % (Manual) Basophils % Basophils % (Manual) Nucleated RBC % PT with INR INR Anticoagulation Therapy Puncture Site ABG pH ABG pCO2 at Pt Temp ABG pO2 at Pt Temp ABG HCO3 ABG O2 Sat (Measured) ABG O2 Content ABG Base Excess Shashi Test VBG pH POC VBG pCO2 POC VBG pO2 Mixed VBG HCO3 Carboxyhemoglobin Methemoglobin O2 Delivery Device Oxygen Flow Rate Vent Mode Vent Rate Mechanical Rate Pressure Support Vent Sodium Potassium Chloride Carbon Dioxide Anion Gap BUN Creatinine Creat Clearance w eGFR Random Glucose Lactic Acid 7.8 H* Calcium Total Bilirubin AST ALT Alkaline Phosphatase Creatine Kinase Creatine Kinase Index CK-MB (CK-2) Troponin I Total Protein Albumin Triglycerides Cholesterol Total LDL Cholesterol HDL Cholesterol TSH Urine Color Urine Appearance Urine pH Ur Specific [place] Urine Protein Urine Glucose (UA) Urine Ketones Urine Blood Urine Nitrite Urine Bilirubin Urine Urobilinogen Ur Leukocyte Esterase Urine WBC (Auto) Urine RBC (Auto) Ur Epithelial Cells Urine Bacteria Hyaline Casts Urine Mucus CSF Appearance CSF Color CSF WBC CSF RBC CSF Glucose 133 H CSF Total Protein 66 H Opiates Screen Negative Methadone Screen Negative Barbiturate Screen Negative Phencyclidine Screen Negative Ur Amphetamines Screen Negative MDMA (Ecstasy) Screen Negative Benzodiazepines Screen Negative Cocaine Screen Negative U Marijuana (THC) Screen Negative Blood Type Antibody Screen 01/28/18 20:00 WBC RBC Hgb Hct MCV MCH MCHC RDW Plt Count MPV Absolute Neuts (auto) Neutrophils % Neutrophils % (Manual) Band Neutrophils % Lymphocytes % Lymphocytes % (Manual) Monocytes % Monocytes % (Manual) Eosinophils % Eosinophils % (Manual) Basophils % Basophils % (Manual) Nucleated RBC % PT with INR INR Anticoagulation Therapy Puncture Site ABG pH ABG pCO2 at Pt Temp ABG pO2 at Pt Temp ABG HCO3 ABG O2 Sat (Measured) ABG O2 Content ABG Base Excess Shashi Test VBG pH POC VBG pCO2 POC VBG pO2 Mixed VBG HCO3 Carboxyhemoglobin Methemoglobin O2 Delivery Device Oxygen Flow Rate Vent Mode Vent Rate Mechanical Rate Pressure Support Vent Sodium Potassium Chloride Carbon Dioxide Anion Gap BUN Creatinine Creat Clearance w eGFR Random Glucose Lactic Acid Calcium Total Bilirubin AST ALT Alkaline Phosphatase Creatine Kinase Creatine Kinase Index CK-MB (CK-2) Troponin I Total Protein Albumin Triglycerides Cholesterol Total LDL Cholesterol HDL Cholesterol TSH Urine Color Urine Appearance Urine pH Ur Specific [place] Urine Protein Urine Glucose (UA) Urine Ketones Urine Blood Urine Nitrite Urine Bilirubin Urine Urobilinogen Ur Leukocyte Esterase Urine WBC (Auto) Urine RBC (Auto) Ur Epithelial Cells Urine Bacteria Hyaline Casts Urine Mucus CSF Appearance Clear CSF Color Colorless CSF WBC 1 CSF RBC 1 CSF Glucose CSF Total Protein Opiates Screen Methadone Screen Barbiturate Screen Phencyclidine Screen Ur Amphetamines Screen MDMA (Ecstasy) Screen Benzodiazepines Screen Cocaine Screen U Marijuana (THC) Screen Blood Type Antibody Screen Active Medications Generic Name Dose Route Start Last Admin Trade Name Freq PRN Reason Stop Dose Admin Chlorhexidine Gluconate 1 applic 01/28/18 22:00 Hibiclens For Decolonization - TP HS ANUPAMA Heparin Sodium (Porcine) 5,000 unit 01/29/18 06:00 Heparin - SQ TID ANUPAMA Propofol 1,000,000 mcg in 100 mls @ 3.946 mls/hr 01/28/18 20:15 Diprivan - IVPB TITR ANUPAMA Protocol 5 MCG/KG/MIN Sodium Chloride 1,000 mls @ 100 mls/hr 01/28/18 20:41 Normal Saline - IV ASDIR ANUPAMA Ampicillin Sodium 2 gm/ Sodium 100 mls @ 200 mls/hr 01/28/18 22:00 01/28/18 21:38 Chloride IVPB 200 mls/hr Q4H-IV ANUPAMA Administration Protocol Levetiracetam 750 mg 01/29/18 22:00 Keppra Injection - IVPB BID [facility] Mupirocin 1 applic 01/28/18 22:00 Bactroban Ointment (For Decolonization) - NS 02/02/18 21:59 BID [facility] Pneumococcal 13-Valent Conj Vacc 0.5 ml 01/28/18 22:56 Prevnar 13 Syringe - IM 01/28/18 22:57 .ONCE ONE ASSESSMENT/PLAN: The patient is a 67 yo male with PMH prostate CA, hypothyroidism, HTN, CABG, presented to the hospital for AMS, s/p seizure in ambulance on route to hospital and another episode in ED. He is admitted to ICU s/p acute respiratory failure that required intubation, s/p seizure, severe sepsis. Acute respiratory failure Seizure Severe sepsis r/o meningitis lactic acidosis elevated troponin, r/o ACS INGE HTN CAD, s/p CABG hypothyroidism Plan: AMS, seizure- imaging studies negative for acute pathology, may be related to cancer, sepsis also r/o meningitis Will continue IVF-NS at 100 cc/hr will cont broad spectrum antibiotics; given Zosyn in ED. Will continue Ampicillin, Vancomycin, Ceftriaxone blood cultures pending, CSF pending f/u LA f/u troponins and repeat EKG in AM vent support, sedation continue Keppra 750 mg IV BID hold BP meds for now f/u nephro, neuro and ID recommendations DVT PPX Heparin sq FULL CODE Dispo: We will continue to follow the patient. Thank you for this consultative opportunity. Problem List - Problems (1) Hypothyroidism Code(s): E03.9 - HYPOTHYROIDISM, UNSPECIFIED (2) Prostate cancer Code(s): C61 - MALIGNANT NEOPLASM OF PROSTATE (3) Failed CABG (coronary artery bypass graft) Code(s): T82.218A - [facility] COMPL OF CORONARY ARTERY BYPASS GRAFT, INIT ENCNTR (4) Seizure Code(s): R56.9 - UNSPECIFIED CONVULSIONS Visit type - Emergency Visit Emergency Visit: Yes ED Registration Date: 01/28/18 Care time: The patient presented to the Emergency Department on the above date and was hospitalized for further evaluation of their emergent condition. - New Patient This patient is new to me today: Yes Date on this admission: 01/29/18 - Critical Care Critical Care patient: Yes Total Critical Care Time (in minutes): 40 Critical Care Statement: The care of this patient involved high complexity decision making to prevent further life threatening deterioration of the patient 's condition and/or to evaluate & treat vital organ system(s) failure or risk of failure.
[2018-01-28] MEDS: SODIUM CHLORIDE 1,000 ML IV SCH (23:11)
[2018-01-28] MEDS: MUPIROCIN 2% TOPICAL OINTMENT FOR DECOLONIZATION NS SCH (23:12)
[2018-01-28] MEDS: CHLORHEXIDINE GLUCONATE 4% CLEANSER FOR DECOLONIZATION TP SCH (23:12)
[2018-01-29] MEDS: AMPICILLIN - 2 GM in SODIUM CHLORIDE 100 ML IVPB SCH ×2 (02:00→05:30)
[2018-01-29 02:49] LABS: GLUCOSE,CSF 131 mg/dL (50-80)
[2018-01-29] MEDS ORDERED: HEMOQUE TEST 1 EACH EACH ONE (02:53)
[2018-01-29] MEDS ORDERED: PT OWN MED DRAWER 7, Y5N ONE ×2 (05:22→09:51)
[2018-01-29] MEDS: HEPARIN NA (PORCINE) 5,000 UNITS/ML 1ML VIAL SQ SCH ×3 (05:29→21:26)
[2018-01-29 06:33] LABS: BASO % 0.1 % (0-2.0); HEMATOCRIT 39.1 % (35.4-49); HEMOGLOBIN 13.4 GM/dL (11.7-16.9); LYMPH % 7.4 % (8-40); MCH 28.9 pg (25.7-33.7); MCHC 34.2 g/dl (32.0-35.9); MEAN CELL VOLUME 84.5 fl (80-96); MEAN PLT VOLUME 9.6 fl (7.5-11.1); MONO % 10.8 % (3.8-10.2); NEUT % 81.7 % (42.8-82.8); PLATELET COUNT 196 K/MM3 (134-434); RBC 4.63 M/mm3 (4.00-5.60); RDW 13.9 % (11.9-15.9); WHITE BLOOD COUNT 15.5 K/mm3 (4.0-10.0)
[2018-01-29 07:02] LABS: ALBUMIN 3.2 g/dl (3.4-5.0); CHLORIDE 107 mmol/L (98-107); POTASSIUM 3.7 mmol/L (3.5-5.1); SODIUM 143 mmol/L (136-145)
[2018-01-29 07:31] LABS: SGPT/ALT 44 U/L (12-78)
[2018-01-29 08:33] LABS: ALK PHOS 101 U/L (45-117); ANION GAP 13 MMOL/L (8-16); BILIRUBIN,TOTAL 0.5 mg/dL (0.2-1.0); BLOOD UREA NITROGEN 24 mg/dL (7-18); CO2 23 mmol/L (21-32); CREATININE 1.3 mg/dL (0.7-1.3); GLUCOSE,RANDOM 140 mg/dL (74-106); SGOT/AST 39 U/L (15-37); TOT PROT 5.8 g/dl (6.4-8.2)
--- NOTE | 2018-01-29 08:41 | CON.NEURO ---
Consult - Alcohol/Substance Use Hx Alcohol Use: No - Smoking History Smoking history: Never smoked Have you smoked in the past 12 months: No Home Medications - Allergies Allergies/Adverse Reactions: Allergies Allergy/AdvReac Type Severity Reaction Status Date / Time No Allergy Information Allergy Verified 01/28/18 17:28 Available - Home Medications Home Medications: Ambulatory Orders Clopidogrel Bisulfate [Clopidogrel] 75 mg PO DAILY 01/28/18 Levothyroxine [Synthroid -] 25 mcg PO DAILY 01/28/18 Metoprolol Tartrate [Lopressor -] 25 mg PO BID 01/28/18 Ranitidine [Zantac -] 150 mg PO DAILY 01/28/18 Tadalafil [Cialis] 20 mg PO DAILY 01/28/18 Venlafaxine HCl [Effexor -] 75 mg PO DAILY 01/28/18 Physical Exam-Neuro Vital Signs: Vital Signs Temperature 99.6 F 01/29/18 06:00 Pulse Rate 90 01/29/18 08:31 Respiratory Rate 16 01/29/18 08:31 Blood Pressure 125/76 01/29/18 06:00 O2 Sat by Pulse Oximetry (%) 100 01/29/18 08:31 Labs: CBC, BMP 01/29/18 05:30 01/29/18 05:30 INR, PTT INR 1.11 (0.83-1.09) H 01/28/18 17:30 Assessment/Plan cc episode of new onset seizure and mental status change HPI 67 year old male history of prostate cancer, hypothyroidism, hypertension , came to hospital for confusion and had one episode of tonic clonic seizure. His csf seems to be benign and ct head was normal. His wbc was very high. Oksana is intubated and sedated. He has fever of 101 at hospital. Steven has not had any seizure since yesterday and he is on iv keppra. His utox was negative. PMH as above SH CABG SH,FH , ROS reviewed in chart Allergies No Allergy Information Available Allergy (Verified 01/28/18 17:28) HOME MEDICATIONS: Home Medications Medication Instructions Recorded Clopidogrel Bisulfate [Clopidogrel] 75 mg PO DAILY 01/28/18 Levothyroxine [Synthroid -] 25 mcg PO DAILY 01/28/18 Metoprolol Tartrate [Lopressor -] 25 mg PO BID 01/28/18 Ranitidine [Zantac -] 150 mg PO DAILY 01/28/18 Tadalafil [Cialis] 20 mg PO DAILY 01/28/18 Venlafaxine HCl [Effexor -] 75 mg PO DAILY 01/28/18 Neurological Examination intubated and sedated he is comatose, there is mild withdrawal to pain pupils is reactive, corneal and gag reflex is positive no active seizure or twitching was seen neck if slightly sitffness( csf looks benign , could be due to arthritis in neck ) rest of exam is not possible Lab and data csf protein 66 sugar 131 wbc is 1 blood wbc was 35 yeterday and today 15 ct unremarkable Assessment- New onset seizure, no acute findings on ct scan , seizure is under control . 2. high wbc, source of infection is not known and csf seems benign PLAN 1. MRI of brain with contrast once stable, 2. EEG 3. Continue keppra 1500 mg iv bid 4. Abx as per ID, suspician for meningitis and encephalitis is low 5. would follow [facility] Thanking you so much Sherman Huggins MD
[2018-01-29] MEDS ORDERED: ALBUTEROL SO4 0.083% IH SOL 2.5 MG/3 ML VIAL.NEB. NEB PRN (08:50)
[2018-01-29] MEDS ORDERED: PNEUMOC 13-VAL CONJ-DIP CRM/PF 0.5 ML DISP.SYRIN IM ONE (09:00)
--- NOTE | 2018-01-29 09:42 | PN ---
Progress Note (short form) - Note Progress Note: ID consult dictated imp/reccd 67 year old man pmh prostate cancer, CAD s/p cabg admitted with new onset seizures, agitation leukocytosis, lactic acidosis s/p LP received vanco/rocephin/amp/zosyn overnight intubated in ED now awake and alert fever/new onset seizures doubt meningitis and encephalitis with normal csf results ?source of sepsis or secondary to seizure suspect he will be extubated today and we can get more history alert and following commands continue ceftriaxone- empiric for sepsis f/u cultures new onset seizure- per neurology over 45 minutes spent in the care of this critically ill icu patient Problem List - Problems (1) New onset seizure Code(s): R56.9 - UNSPECIFIED CONVULSIONS (2) Respiratory failure Code(s): J96.90 - RESPIRATORY FAILURE, UNSP, UNSP W HYPOXIA OR HYPERCAPNIA (3) Fever Code(s): R50.9 - FEVER, UNSPECIFIED (4) Lactic acidosis Code(s): E87.2 - ACIDOSIS
[2018-01-29] MEDS ORDERED: DEXTROSE 5%-WATER 100 ML IVPB ONE (09:51)
[2018-01-29] MEDS ORDERED: PIPERACILLIN/TAZOB 3.375 GM 3.375 GM in DEXTROSE 5%-WATER - 50 ML IVPB SCH (10:00)
--- NOTE | 2018-01-29 10:24 | PN ---
Physical Exam: SUBJECTIVE: Patient is a 67 y/o male with a history of prostate Ca, hypothyroid, HTN, CABG, who is here for AMS. Patient extubated successfully, still altered from baseline. OBJECTIVE: Vital Signs Temperature 100 F H 01/29/18 09:59 Pulse Rate 86 01/29/18 09:59 Respiratory Rate 14 01/29/18 09:59 Blood Pressure 127/76 01/29/18 09:59 O2 Sat by Pulse Oximetry (%) 100 01/29/18 08:31 GENERAL: patient sedated and intubated EYES: PERRL, LUNGS: Breath sounds equal, clear to auscultation bilaterally, HEART: Regular rate and rhythm, S1, S2 ABDOMEN: Soft, nontender, nondistended, normoactive bowel sounds, EXTREMITIES: 2+ pulses, warm, well-perfused, no edema. SKIN: Warm, dry, normal turgor, no rashes or lesions noted CBC, BMP 01/29/18 05:30 01/29/18 05:30 Microbiology 01/28/18 20:00 Cerebral Spinal Fluid - Lumbar Puncture Streptococcus pneumoniae Antigen (M - Final Active Medications Albuterol Sulfate (Ventolin 0.083% Nebulizer Soln -) 1 amp NEB Q4H PRN PRN Reason: SHORT OF BREATH/WHEEZING Chlorhexidine Gluconate (Hibiclens For Decolonization -) 1 applic TP HS ANUPAMA Last Admin: 01/28/18 23:12 Dose: 1 applic Heparin Sodium (Porcine) (Heparin -) 5,000 unit SQ TID ANUPAMA Last Admin: 01/29/18 05:29 Dose: 5,000 unit Propofol (Diprivan -) 1,000,000 mcg in 100 mls @ 3.946 mls/hr IVPB TITR ANUPAMA; Protocol Last Titration: 01/29/18 05:30 Dose: 30 mcg/kg/min, 23.678 mls/hr Sodium Chloride (Normal Saline -) 1,000 mls @ 100 mls/hr IV ASDIR ANUPAMA Last Admin: 01/28/18 23:11 Dose: 100 mls/hr Ceftriaxone Sodium 2 gm/ (Dextrose) 100 mls @ 200 mls/hr IVPB DAILY [facility]; Protocol Levetiracetam (Keppra Injection -) 750 mg IVPB BID ANUPAMA Mupirocin (Bactroban Ointment (For Decolonization) -) 1 applic NS BID ANUPAMA Stop: 02/02/18 21:59 Last Admin: 01/28/18 23:12 Dose: 1 applic ASSESSMENT/PLAN: Patient is a 67 y/o male with a history of prostate Ca, hypothyroid, HTN, CABG, who is here for AMS. #AMS 2/2 to new seizure vs meningitis - Neuro, Dr. Huggins: MRI with contrast once stable, EEG - ID, Dr Syed; Continue Ceftriaxone for broad sepsis coverage - CSF glucose 131, protein 66 - Ceftriazone day 2 - f/u MRI - f/u EEG - head CT: no acute pathology - Keppra 750 BID - intubated satting 100% - lactic acidosis resolved #hyperglycemia - A1C: 6.1 #DVT ppx - heparin TID FEN - NS @ 100 Dispo: f/u medications tomorrow Visit type - Emergency Visit Emergency Visit: No - New Patient This patient is new to me today: Yes Date on this admission: 01/29/18 - Critical Care Critical Care patient: No
[2018-01-29] MEDS: CEFTRIAXONE 2 GM in DEXTROSE 5%-WATER 100 ML IVPB SCH (10:29)
[2018-01-29] MEDS: MUPIROCIN 2% TOPICAL OINTMENT FOR DECOLONIZATION NS SCH ×2 (10:29→21:27)
[2018-01-29 10:37] LABS: MAGNESIUM 2.6 mg/dL (1.8-2.4); PHOSPHOROUS 5.2 mg/dL (2.5-4.9)
--- NOTE | 2018-01-29 11:06 | CONS ---
DATE OF CONSULTATION: DATE OF DICTATION: 01/29/2018 REQUESTING PHYSICIAN: The hospitalist service. HISTORY OF PRESENT ILLNESS: This 67-year-old man, his history entirely from the chart, is apparently visiting from [place] his sister. He has a history of prostate cancer in the past and coronary artery disease status post CABG. He was yesterday apparently in bed all day. He went to use the bathroom. He was not behaving like himself. They called EMS. He apparently had a seizure en route to the emergency room. In the emergency room, he was agitated. CT scan was ordered. The decision was made to intubate, which was done. He had a abraham CT of his head, cervical spine, chest, abdomen, and pelvis, all of which were unremarkable. He had an elevated white count and fever. He had a spinal tap that was unremarkable, as well. He was given vancomycin, ampicillin, ceftriaxone, and Zosyn, admitted to the ICU. Currently, he is awake, his sedation is off, he is following commands. He can move his arms and legs on command. He is hemodynamically stable. PAST MEDICAL HISTORY: Per the chart is notable for history of metastatic prostate cancer, hypothyroidism, and hypertension. He has a history of CABG. He has another. He has had abdominal surgery, has healed incisions, unclear what he had done. SOCIAL HISTORY: Unknown. Per the ER note, he is from [place]. ALLERGIES: No known drug allergy history is available. MEDICATIONS: Plavix, Synthroid, Lopressor, Zantac, Cialis, and Effexor. REVIEW OF SYSTEMS: No review of systems is obtainable. PHYSICAL EXAMINATION General: As stated, he is awake currently. He is alert. He is following commands. Vital signs: His maximum temperature was 101.7, currently 99.6 rectal, blood pressure is 125/76, pulse of 90, respiratory rate 12, he is saturating 100% on 50% FiO2. HEENT: He is normocephalic. He is orally intubated. Neck: Supple. He has no meningeal signs. Lungs: Clear to auscultation. Heart: Regular rate and rhythm. Abdomen: Soft, nontender. He has a well-healed incision from his umbilicus down to his suprapubic area. Extremities: He has ecchymosis on his knee. He has no open skin wounds. DIAGNOSTIC DATA: Labs are notable on admission for a white count of 34,000, repeat was 16.5, hemoglobin is 13.4, platelets are 196. INR was normal. This morning, his BUN is 24 and creatinine is 1.3. AST at 39. Otherwise normal LFTs. Lactic acid on admission was 13, this morning it is 1.6. Urinalysis is notable for 3+ glucose, trace ketones, 2+ blood, 2 white cells. Spinal tap had 1 white cell, 1 red cell, elevated glucose of 131 with a protein of 66. His urine toxicology is negative. As I said before, his imaging studies have all been unremarkable including chest, abdomen and pelvis, and cervical CT as well as head CT. The head CT shows mild to moderate volume loss with no acute intracranial pathology. Blood cultures and CSF fluid cultures are all pending at this time. SUMMARY: 1. This is a 67-year-old man with a past medical history of prostate cancer, coronary artery disease, who presents with new onset seizures, fever, and lactic acidosis. He required intubation to protect his airway. This morning, he is clearly awake with a normal spinal tap making suspicions for meningitis and encephalitis very low. Source of sepsis is not clear. It is unclear if he even has an infection, but given the severity of his white count accompanied by fever, I think it would be reasonable to continue with ceftriaxone until further cultures are back. Currently, he has no evidence by imaging of pneumonia. Hopefully, he will extubated this morning and further history can be obtained. 2. Respiratory failure secondary to change in mental status. 3. Change in mental status, which appears to be resolved. 4. New onset seizures for which he is being evaluated by Neurology. Over 45 minutes was spent in the care and evaluation of this critically ill ICU patient. JASPREET CARBAJAL M.D. [id number]
--- NOTE | 2018-01-29 11:12 | CONSULT ---
Consult Consult Specialty:: Nephrology Reason for Consultation:: INGE - History of Present Illness Chief Complaint: altered mental status History of Present Illness: Pt is a 67 year old male with pmhx of HTN and prostate cancer who presented to the ER with altered mental status. He is visiting [place] from [place]. He had a seizure on the way to the hospital. Pt is now intubated in the ICU. He is unable to give history. Chart was reviewed. Pt was found to be in acute renal failure and I was called to evaluate him. His renal function did improve overnight. It is not clear if he has history of CKD. - History Source History Provided By: Medical Record - Past Medical History Cardio/Vascular: Yes: HTN Gastrointestinal: Yes: GERD Renal/: Yes: Cancer Endocrine: Yes: Hypothyroidism - Alcohol/Substance Use Hx Alcohol Use: No - Smoking History Smoking history: Never smoked Have you smoked in the past 12 months: No Home Medications - Allergies Allergies/Adverse Reactions: Allergies Allergy/AdvReac Type Severity Reaction Status Date / Time No Allergy Information Allergy Verified 01/28/18 17:28 Available - Home Medications Home Medications: Ambulatory Orders Clopidogrel Bisulfate [Clopidogrel] 75 mg PO DAILY 01/28/18 Levothyroxine [Synthroid -] 25 mcg PO DAILY 01/28/18 Metoprolol Tartrate [Lopressor -] 25 mg PO BID 01/28/18 Ranitidine [Zantac -] 150 mg PO DAILY 01/28/18 Tadalafil [Cialis] 20 mg PO DAILY 01/28/18 Venlafaxine HCl [Effexor -] 75 mg PO DAILY 01/28/18 Family Disease History - Family Disease History Family History: Unable to Obtain Review of Systems Unable to obtain ROS, reason: pt intubated Physical Exam Vital Signs: Vital Signs Temperature 100 F H 01/29/18 09:59 Pulse Rate 86 01/29/18 09:59 Respiratory Rate 14 01/29/18 09:59 Blood Pressure 127/76 01/29/18 09:59 O2 Sat by Pulse Oximetry (%) 100 01/29/18 08:31 Constitutional: Yes: Calm, Mild Distress Eyes: Yes: Conjunctiva Clear Cardiovascular: Yes: S1, S2 Respiratory: Yes: Mechanically Ventilated Gastrointestinal: Yes: Soft, Abdomen, Obese Renal/: Yes: Castro Present Musculoskeletal: Yes: Muscle Weakness Edema: No Integumentary: Yes: WNL Neurological: Yes: Lethargy Labs: CBC, BMP 01/29/18 05:30 01/29/18 05:30 Laboratory Tests 01/28/18 01/28/18 01/28/18 17:30 17:30 17:41 WBC 34.2 H* Hgb 15.8 ABG pH ABG pCO2 at Pt Temp Sodium Potassium Carbon Dioxide 16 L Anion Gap 23 H BUN 20 H Creatinine 1.7 H Urine Protein 2+ H Urine Blood 2+ H 01/28/18 01/29/18 01/29/18 19:20 05:30 05:30 WBC 15.5 H Hgb 13.4 ABG pH 7.35 ABG pCO2 at Pt Temp 33.5 L Sodium 143 Potassium 3.7 Carbon Dioxide Anion Gap BUN 24 H Creatinine 1.3 Urine Protein Urine Blood Imaging - Results Chest X-ray: Report Reviewed Cat Scan: Report Reviewed Problem List - Problems (1) INGE (acute kidney injury) Code(s): N17.9 - ACUTE KIDNEY FAILURE, UNSPECIFIED (2) Hypothyroidism Code(s): E03.9 - HYPOTHYROIDISM, UNSPECIFIED (3) Lactic acidosis Code(s): E87.2 - ACIDOSIS (4) New onset seizure Code(s): R56.9 - UNSPECIFIED CONVULSIONS (5) Prostate cancer Code(s): C61 - MALIGNANT NEOPLASM OF PROSTATE Assessment/Plan Current Medications Generic Name Dose Route Start Last Admin Trade Name Freq PRN Reason Stop Dose Admin Acetaminophen 1,000 mg 01/29/18 12:00 Ofirmev Injection - IVPB 01/29/18 12:01 ONCE ONE Albuterol Sulfate 1 amp 01/29/18 08:50 01/29/18 09:00 Ventolin 0.083% Nebulizer Soln - NEB 1 amp Q4H PRN Administration SHORT OF BREATH/WHEEZING Chlorhexidine Gluconate 1 applic 01/28/18 22:00 01/28/18 23:12 Hibiclens For Decolonization - TP 1 applic HS ANUPAMA Administration Heparin Sodium (Porcine) 5,000 unit 01/29/18 06:00 01/29/18 05:29 Heparin - SQ 5,000 unit TID ANUPAMA Administration Propofol 1,000,000 mcg in 100 mls @ 3.946 mls/hr 01/28/18 20:15 01/29/18 05: 30 Diprivan - IVPB 30 mcg/kg/min TITR ANUPAMA 23.678 mls/hr Titration Protocol 5 MCG/KG/MIN Sodium Chloride 1,000 mls @ 100 mls/hr 01/28/18 20:41 01/28/18 23:11 Normal Saline - IV 100 mls/hr ASDIR ANUPAMA Administration Ceftriaxone Sodium 2 gm/ 100 mls @ 200 mls/hr 01/29/18 10:00 01/29/18 10:29 Dextrose IVPB 200 mls/hr DAILY ANUPAMA Administration Protocol Levetiracetam 750 mg 01/29/18 22:00 Keppra Injection - IVPB BID ANUPAMA Mupirocin 1 applic 01/28/18 22:00 01/29/18 10:29 Bactroban Ointment (For Decolonization) - NS 02/02/18 21:59 1 applic BID ANUPAMA Administration Impression 1. INGE 2. seizure 3. altered mental status 4. HTN 5. resp failure 6. prostate cancer 7. CAD 8. hypothyroid 9. lactic acidosis Plan - renal function is improving - lactic acid is improving, can be elevated secondary to seizure - cont to trend lactic acid - check ua and lytes - check renal ultrasound - vent support - monitor urine output - neuro follow up - neuro workup for altered mentation is in progress - monitor wbc - follow cultures Dr Cain
[2018-01-29] MEDS ORDERED: ACETAMINOPHEN 1000 MG/100 ML VIAL (NON FORMULARY) IVPB ONE (12:00)
--- NOTE | 2018-01-29 12:20 | PN ---
Teaching Attending Note Name of Resident: Jason Bauer ATTENDING PHYSICIAN STATEMENT I saw and evaluated the patient. I reviewed the resident's note and discussed the case with the resident. I agree with the resident's findings and plan as documented. SUBJECTIVE: Pt seen and examined in the ICU. Remained intubated overnight. Awake off sedation and tolerated CPAP/PS trials. Extubated during rounds. Blood cultures growing gram positive cocci. OBJECTIVE: Vital Signs Period Temp Pulse Resp BP Sys/Quintero Pulse Ox Last 24 Hr 99.6 F-101.7 F 85-147 12-30 93-213/64-136 95-100 Intake & Output 01/26/18 01/27/18 01/28/18 01/29/18 23:59 23:59 23:59 23:59 Intake Total 620 1019 Output Total 800 700 Balance -180 319 Weight 96.275 kg Gen: extubated Heart: tachycardic, regular Lung: decreased breath sounds at the bases Abd: soft, nontender Ext: no edema CBC, BMP 01/29/18 05:30 01/29/18 05:30 Active Medications Albuterol Sulfate (Ventolin 0.083% Nebulizer Soln -) 1 amp NEB Q4H PRN PRN Reason: SHORT OF BREATH/WHEEZING Last Admin: 01/29/18 09:00 Dose: 1 amp Chlorhexidine Gluconate (Hibiclens For Decolonization -) 1 applic TP HS ANUPAMA Last Admin: 01/28/18 23:12 Dose: 1 applic Heparin Sodium (Porcine) (Heparin -) 5,000 unit SQ TID ANUPAMA Last Admin: 01/29/18 05:29 Dose: 5,000 unit Propofol (Diprivan -) 1,000,000 mcg in 100 mls @ 3.946 mls/hr IVPB TITR ANUPAMA; Protocol Last Titration: 01/29/18 05:30 Dose: 30 mcg/kg/min, 23.678 mls/hr Sodium Chloride (Normal Saline -) 1,000 mls @ 100 mls/hr IV ASDIR ANUPAMA Last Admin: 01/28/18 23:11 Dose: 100 mls/hr Ceftriaxone Sodium 2 gm/ (Dextrose) 100 mls @ 200 mls/hr IVPB DAILY ANUPAMA; Protocol Last Admin: 01/29/18 10:29 Dose: 200 mls/hr Levetiracetam (Keppra Injection -) 750 mg IVPB BID [facility] Mupirocin (Bactroban Ointment (For Decolonization) -) 1 applic NS BID ANUPAMA Stop: 02/02/18 21:59 Last Admin: 01/29/18 10:29 Dose: 1 applic ASSESSMENT AND PLAN: Altered Mental Status Seizures s/p Acute Respiratory Failure Gram Positive Bacteremia of unclear source Severe Sepsis Lactic Acidosis +Troponins likely Demand Ischemia Acute Kidney Injury CAD s/p CABG HTN Hypothyroidism - pt extubated - continue antibiotics - f/u cultures - echocardiogram - IVF - monitor urine output, creatinine - continue antiepileptics - DVT prophylaxis - continue ICU monitoring critical care time spent in reviewing chart, evaluating patient and formulating plan 35 min
[2018-01-29] MEDS ORDERED: ALBUTEROL SO4 2.5/IPRATROPIUM 0.5 INH SOL 3 ML VIAL.NEB. NEB SCH (14:00)
[2018-01-29] MEDS ORDERED: VANCOMYCIN 1,500 MG in DEXTROSE 5%-WATER - 500 ML IVPB ONE (14:37)
--- NOTE | 2018-01-29 14:47 | PN ---
Teaching Attending Note Name of Resident: Gladys Ellington ATTENDING PHYSICIAN STATEMENT I saw and evaluated the patient. I reviewed the resident's note and discussed the case with the resident. I agree with the resident's findings and plan as documented. SUBJECTIVE: Seen just after extubation this am, not able to take any history. OBJECTIVE: NAD , lethargic , opens eyes and does not follow commands round equal pupils, reactive tolight . No JVD , symmetric face. CV: RRR Lungs: CTAB ABd : soft, NT, ND , NL BS Ext : no edema ASSESSMENT AND PLAN: 67 y/o gentleman with h/o HTN, and metastatic prostate cancer who presented with AMS and had a tonic clonic seizure in ambulance 1- Seizure: unclear etiology. ? sepsis Vs metastasis to brain, VS stroke. Unlikely [employer] infection - cont keppra - MRI with alex - neuro checks. will perform full neuro exam when able to participate - EEG pending 2- Sepsis and bacteremia: G+ cocci in clusters. - unclear source. - d/w Dr. Genao. start vanco . COnt ceftriaxone - CSF with no signs of meningitis , and no organisms on G stain - follow SCF cx . - will repeat blood cx probably tomorrow 3- High anion mg Metabolic acidosis : due to lactic acidosis . resolved 4- NSTEMI: due to demand ischemia . EKG with TWI in lateral leads and RBBB. trop trended down. - Echo - further w/u as out pt. might need stress test as out pt 5- INGE : improved - cont IVF if remains stable , might be able to transfer out this evening Critical Care Total Critical Care Time (in minutes): 40 Critical Care Statement: The care of this patient involved high complexity decision making to prevent further life threatening deterioration of the patient 's condition and/or to evaluate & treat vital organ system(s) failure or risk of failure.
[2018-01-29] MEDS: VANCOMYCIN 1,250 MG in DEXTROSE 5%-WATER - 250 ML IVPB SCH (16:30)
[2018-01-29] MEDS ORDERED: LORazepam 2 MG/ML SDV VIAL IVPUSH ONE (19:41)
--- NOTE | 2018-01-29 19:47 | PN ---
Physical Exam: SUBJECTIVE: Patient seen and examined this am and evening in icu. Pt extubated today. Lethargic, resting in bed, family by bedside. Pt endorses pain in his right arm, expresses general discomfort. Poor historian. OBJECTIVE: Vital Signs Period Temp Pulse Resp BP Sys/Quintero Pulse Ox Last 24 Hr 99.6 F-101.7 F 85-125 12-24 93-157/64-94 95-100 GENERAL: Lethargic, more alert than this afternoon. Responds to questions. HEAD: NC/AT EYES: EOMI ENT: Ears normal, nares patent, oropharynx clear without exudates, moist mucous membranes. NECK: Trachea midline, full range of motion, supple. LUNGS: Breath sounds equal, clear to auscultation bilaterally, no wheezes, no crackles, no accessory muscle use. HEART: Regular rate and rhythm, S1, S2 without murmur, rub or gallop. ABDOMEN: Soft, nontender, nondistended, normoactive bowel sounds, no guarding, no rebound, no hepatosplenomegaly, no masses. EXTREMITIES: Bruising right knee s/p fall in bathroom NEUROLOGICAL: No observed Cranial Nerve deficits. SKIN: Multiple Excoriations throughout. H/o picking at skin per family. Laboratory Results - last 24 hr 01/28/18 01/28/18 01/28/18 17:30 17:30 17:30 WBC RBC Hgb Hct MCV MCH MCHC RDW Plt Count MPV Absolute Neuts (auto) Neutrophils % Neutrophils % (Manual) 79.0 Band Neutrophils % 8.0 Lymphocytes % Lymphocytes % (Manual) 6.0 L Monocytes % Monocytes % (Manual) 7 Eosinophils % Eosinophils % (Manual) 0.0 Basophils % Basophils % (Manual) 0.0 Nucleated RBC % Puncture Site ABG pH ABG pCO2 at Pt Temp ABG pO2 at Pt Temp ABG HCO3 ABG O2 Sat (Measured) ABG O2 Content ABG Base Excess Shashi Test Carboxyhemoglobin Methemoglobin Oxygen Flow Rate Sodium Potassium Chloride Carbon Dioxide Anion Gap BUN Creatinine Creat Clearance w eGFR POC Glucometer Random Glucose Hemoglobin A1c % Lactic Acid Calcium Phosphorus Magnesium Total Bilirubin AST ALT Alkaline Phosphatase Troponin I Total Protein Albumin TSH 2.58 Free T4 CSF Appearance CSF Color CSF WBC CSF RBC CSF Neutrophils CSF Lymphocytes CSF Eosinophils CSF Basophils CSF Macrophages CSF Plasma Cells CSF Diff Comment CSF Comment CSF Glucose CSF Total Protein Random Vancomycin Opiates Screen Methadone Screen Barbiturate Screen Phencyclidine Screen Ur Amphetamines Screen MDMA (Ecstasy) Screen Benzodiazepines Screen Cocaine Screen U Marijuana (THC) Screen Blood Type A POSITIVE Antibody Screen Negative 01/28/18 01/28/18 01/28/18 17:52 19:20 19:38 WBC RBC Hgb Hct MCV MCH MCHC RDW Plt Count MPV Absolute Neuts (auto) Neutrophils % Neutrophils % (Manual) Band Neutrophils % Lymphocytes % Lymphocytes % (Manual) Monocytes % Monocytes % (Manual) Eosinophils % Eosinophils % (Manual) Basophils % Basophils % (Manual) Nucleated RBC % Puncture Site No Result Required. ABG pH 7.35 ABG pCO2 at Pt Temp 33.5 L ABG pO2 at Pt Temp 221.0 H* ABG HCO3 18.1 L ABG O2 Sat (Measured) 99.5 H ABG O2 Content 21.0 ABG Base Excess -6.1 L Shashi Test No Result Required. Carboxyhemoglobin 1.3 Methemoglobin 1.7 H Oxygen Flow Rate No Result Required. Sodium Potassium Chloride Carbon Dioxide Anion Gap BUN Creatinine Creat Clearance w eGFR POC Glucometer [phone] Random Glucose Hemoglobin A1c % Lactic Acid Calcium Phosphorus Magnesium Total Bilirubin AST ALT Alkaline Phosphatase Troponin I Total Protein Albumin TSH Free T4 CSF Appearance CSF Color CSF WBC CSF RBC CSF Neutrophils CSF Lymphocytes CSF Eosinophils CSF Basophils CSF Macrophages CSF Plasma Cells CSF Diff Comment CSF Comment CSF Glucose CSF Total Protein Random Vancomycin Opiates Screen Negative Methadone Screen Negative Barbiturate Screen Negative Phencyclidine Screen Negative Ur Amphetamines Screen Negative MDMA (Ecstasy) Screen Negative Benzodiazepines Screen Negative Cocaine Screen Negative U Marijuana (THC) Screen Negative Blood Type Antibody Screen 01/28/18 01/28/18 01/28/18 19:39 20:00 20:00 WBC RBC Hgb Hct MCV MCH MCHC RDW Plt Count MPV Absolute Neuts (auto) Neutrophils % Neutrophils % (Manual) Band Neutrophils % Lymphocytes % Lymphocytes % (Manual) Monocytes % Monocytes % (Manual) Eosinophils % Eosinophils % (Manual) Basophils % Basophils % (Manual) Nucleated RBC % Puncture Site ABG pH ABG pCO2 at Pt Temp ABG pO2 at Pt Temp ABG HCO3 ABG O2 Sat (Measured) ABG O2 Content ABG Base Excess Shashi Test Carboxyhemoglobin Methemoglobin Oxygen Flow Rate Sodium Potassium Chloride Carbon Dioxide Anion Gap BUN Creatinine Creat Clearance w eGFR POC Glucometer Random Glucose Hemoglobin A1c % Lactic Acid 7.8 H* Calcium Phosphorus Magnesium Total Bilirubin AST ALT Alkaline Phosphatase Troponin I Total Protein Albumin TSH Free T4 CSF Appearance Clear CSF Color Colorless CSF WBC 1 CSF RBC 1 CSF Neutrophils No Result Required. CSF Lymphocytes No Result Required. CSF Eosinophils No Result Required. CSF Basophils No Result Required. CSF Macrophages No Result Required. CSF Plasma Cells No Result Required. CSF Diff Comment No Result Required. CSF Comment No Result Required. CSF Glucose 133 H 131 H CSF Total Protein 66 H 66 H Random Vancomycin Opiates Screen Methadone Screen Barbiturate Screen Phencyclidine Screen Ur Amphetamines Screen MDMA (Ecstasy) Screen Benzodiazepines Screen Cocaine Screen U Marijuana (THC) Screen Blood Type Antibody Screen 01/28/18 01/28/18 01/28/18 21:51 21:51 22:05 WBC RBC Hgb Hct MCV MCH MCHC RDW Plt Count MPV Absolute Neuts (auto) Neutrophils % Neutrophils % (Manual) Band Neutrophils % Lymphocytes % Lymphocytes % (Manual) Monocytes % Monocytes % (Manual) Eosinophils % Eosinophils % (Manual) Basophils % Basophils % (Manual) Nucleated RBC % Puncture Site ABG pH ABG pCO2 at Pt Temp ABG pO2 at Pt Temp ABG HCO3 ABG O2 Sat (Measured) ABG O2 Content ABG Base Excess Shashi Test Carboxyhemoglobin Methemoglobin Oxygen Flow Rate Sodium 143 Potassium 3.5 Chloride 108 H Carbon Dioxide 19 L Anion Gap 16 BUN 20 H Creatinine 1.1 Creat Clearance w eGFR > 60 POC Glucometer Random Glucose 148 H D Hemoglobin A1c % Lactic Acid Calcium 8.2 L Phosphorus Magnesium Total Bilirubin AST ALT Alkaline Phosphatase Troponin I 0.42 H D Total Protein Albumin TSH 1.18 D Free T4 1.32 H CSF Appearance CSF Color CSF WBC CSF RBC CSF Neutrophils CSF Lymphocytes CSF Eosinophils CSF Basophils CSF Macrophages CSF Plasma Cells CSF Diff Comment CSF Comment CSF Glucose CSF Total Protein Random Vancomycin Opiates Screen Methadone Screen Barbiturate Screen Phencyclidine Screen Ur Amphetamines Screen MDMA (Ecstasy) Screen Benzodiazepines Screen Cocaine Screen U Marijuana (THC) Screen Blood Type A POSITIVE Antibody Screen 01/28/18 01/28/18 01/29/18 22:05 22:05 03:00 WBC RBC Hgb Hct MCV MCH MCHC RDW Plt Count MPV Absolute Neuts (auto) Neutrophils % Neutrophils % (Manual) Band Neutrophils % Lymphocytes % Lymphocytes % (Manual) Monocytes % Monocytes % (Manual) Eosinophils % Eosinophils % (Manual) Basophils % Basophils % (Manual) Nucleated RBC % Puncture Site ABG pH ABG pCO2 at Pt Temp ABG pO2 at Pt Temp ABG HCO3 ABG O2 Sat (Measured) ABG O2 Content ABG Base Excess Shashi Test Carboxyhemoglobin Methemoglobin Oxygen Flow Rate Sodium Potassium Chloride Carbon Dioxide Anion Gap BUN Creatinine Creat Clearance w eGFR POC Glucometer [phone] Random Glucose Hemoglobin A1c % 6.1 H Lactic Acid Calcium Phosphorus 2.5 Magnesium 2.5 H Total Bilirubin AST ALT Alkaline Phosphatase Troponin I Total Protein Albumin TSH Free T4 CSF Appearance CSF Color CSF WBC CSF RBC CSF Neutrophils CSF Lymphocytes CSF Eosinophils CSF Basophils CSF Macrophages CSF Plasma Cells CSF Diff Comment CSF Comment CSF Glucose CSF Total Protein Random Vancomycin Opiates Screen Methadone Screen Barbiturate Screen Phencyclidine Screen Ur Amphetamines Screen MDMA (Ecstasy) Screen Benzodiazepines Screen Cocaine Screen U Marijuana (THC) Screen Blood Type Antibody Screen 01/29/18 01/29/18 01/29/18 05:20 05:30 05:30 WBC 15.5 H RBC 4.63 Hgb 13.4 Hct 39.1 D MCV 84.5 MCH 28.9 MCHC 34.2 RDW 13.9 Plt Count 196 D MPV 9.6 Absolute Neuts (auto) 12.6 H Neutrophils % 81.7 Neutrophils % (Manual) Band Neutrophils % Lymphocytes % 7.4 L D Lymphocytes % (Manual) Monocytes % 10.8 H Monocytes % (Manual) Eosinophils % 0.0 D Eosinophils % (Manual) Basophils % 0.1 Basophils % (Manual) Nucleated RBC % 0 Puncture Site ABG pH ABG pCO2 at Pt Temp ABG pO2 at Pt Temp ABG HCO3 ABG O2 Sat (Measured) ABG O2 Content ABG Base Excess Shashi Test Carboxyhemoglobin Methemoglobin Oxygen Flow Rate Sodium 143 Potassium 3.7 Chloride 107 Carbon Dioxide 23 D Anion Gap 13 BUN 24 H Creatinine 1.3 Creat Clearance w eGFR 55.40 POC Glucometer [phone] Random Glucose 140 H Hemoglobin A1c % Lactic Acid Calcium 8.0 L Phosphorus 5.2 H D Magnesium 2.6 H Total Bilirubin 0.5 AST 39 H ALT 44 Alkaline Phosphatase 101 D Troponin I 0.29 H D Total Protein 5.8 L Albumin 3.2 L TSH Free T4 CSF Appearance CSF Color CSF WBC CSF RBC CSF Neutrophils CSF Lymphocytes CSF Eosinophils CSF Basophils CSF Macrophages CSF Plasma Cells CSF Diff Comment CSF Comment CSF Glucose CSF Total Protein Random Vancomycin Opiates Screen Methadone Screen Barbiturate Screen Phencyclidine Screen Ur Amphetamines Screen MDMA (Ecstasy) Screen Benzodiazepines Screen Cocaine Screen U Marijuana (THC) Screen Blood Type Antibody Screen 01/29/18 01/29/18 01/29/18 05:30 06:30 08:45 WBC RBC Hgb Hct MCV MCH MCHC RDW Plt Count MPV Absolute Neuts (auto) Neutrophils % Neutrophils % (Manual) Band Neutrophils % Lymphocytes % Lymphocytes % (Manual) Monocytes % Monocytes % (Manual) Eosinophils % Eosinophils % (Manual) Basophils % Basophils % (Manual) Nucleated RBC % Puncture Site ABG pH ABG pCO2 at Pt Temp ABG pO2 at Pt Temp ABG HCO3 ABG O2 Sat (Measured) ABG O2 Content ABG Base Excess Shashi Test Carboxyhemoglobin Methemoglobin Oxygen Flow Rate Sodium Potassium Chloride Carbon Dioxide Anion Gap BUN Creatinine Creat Clearance w eGFR POC Glucometer Random Glucose Hemoglobin A1c % Lactic Acid 1.6 Calcium Phosphorus Cancelled Magnesium Cancelled Total Bilirubin AST ALT Alkaline Phosphatase Troponin I Cancelled Total Protein Albumin TSH Free T4 CSF Appearance CSF Color CSF WBC CSF RBC CSF Neutrophils CSF Lymphocytes CSF Eosinophils CSF Basophils CSF Macrophages CSF Plasma Cells CSF Diff Comment CSF Comment CSF Glucose CSF Total Protein Random Vancomycin Opiates Screen Methadone Screen Barbiturate Screen Phencyclidine Screen Ur Amphetamines Screen MDMA (Ecstasy) Screen Benzodiazepines Screen Cocaine Screen U Marijuana (THC) Screen Blood Type Antibody Screen 01/29/18 13:01 WBC RBC Hgb Hct MCV MCH MCHC RDW Plt Count MPV Absolute Neuts (auto) Neutrophils % Neutrophils % (Manual) Band Neutrophils % Lymphocytes % Lymphocytes % (Manual) Monocytes % Monocytes % (Manual) Eosinophils % Eosinophils % (Manual) Basophils % Basophils % (Manual) Nucleated RBC % Puncture Site ABG pH ABG pCO2 at Pt Temp ABG pO2 at Pt Temp ABG HCO3 ABG O2 Sat (Measured) ABG O2 Content ABG Base Excess Shashi Test Carboxyhemoglobin Methemoglobin Oxygen Flow Rate Sodium Potassium Chloride Carbon Dioxide Anion Gap BUN Creatinine Creat Clearance w eGFR POC Glucometer Random Glucose Hemoglobin A1c % Lactic Acid Calcium Phosphorus Magnesium Total Bilirubin AST ALT Alkaline Phosphatase Troponin I Total Protein Albumin TSH Free T4 CSF Appearance CSF Color CSF WBC CSF RBC CSF Neutrophils CSF Lymphocytes CSF Eosinophils CSF Basophils CSF Macrophages CSF Plasma Cells CSF Diff Comment CSF Comment CSF Glucose CSF Total Protein Random Vancomycin 12.11 Opiates Screen Methadone Screen Barbiturate Screen Phencyclidine Screen Ur Amphetamines Screen MDMA (Ecstasy) Screen Benzodiazepines Screen Cocaine Screen U Marijuana (THC) Screen Blood Type Antibody Screen Active Medications Generic Name Dose Route Start Last Admin Trade Name Freq PRN Reason Stop Dose Admin Albuterol Sulfate 1 amp 01/29/18 08:50 01/29/18 09:00 Ventolin 0.083% Nebulizer Soln - NEB 1 amp Q4H PRN Administration SHORT OF BREATH/WHEEZING Chlorhexidine Gluconate 1 applic 01/28/18 22:00 01/28/18 23:12 Hibiclens For Decolonization - TP 1 applic HS ANUPAMA Administration Heparin Sodium (Porcine) 5,000 unit 01/29/18 06:00 01/29/18 15:00 Heparin - SQ 5,000 unit TID ANUPAMA Administration Sodium Chloride 1,000 mls @ 100 mls/hr 01/28/18 20:41 01/28/18 23:11 Normal Saline - IV 100 mls/hr ASDIR ANUPAMA Administration Ceftriaxone Sodium 2 gm/ 100 mls @ 200 mls/hr 01/29/18 10:00 01/29/18 10:29 Dextrose IVPB 200 mls/hr DAILY ANUPAMA Administration Protocol Vancomycin HCl 1,250 mg/ 250 mls @ 166.667 mls/hr 01/29/18 15:00 01/29/18 16: 30 Dextrose IVPB 166.667 mls/hr Q12H ANUPAMA Administration Protocol Levetiracetam 1,000 mg 01/29/18 22:00 Keppra Injection - IVPB BID ANUPAMA Mupirocin 1 applic 01/28/18 22:00 01/29/18 10:29 Bactroban Ointment (For Decolonization) - NS 02/02/18 21:59 1 applic BID ANUPAMA Administration ASSESSMENT/PLAN: 67 yo male with PMH prostate CA, hypothyroidism, HTN, CABG, presented to the hospital for AMS, s/p seizure in ambulance on route to hospital and another episode in ED. Pt originally from [place] visiting sister, fell in bathroom. Neuro--> Seizure, Altered Mental Status -Extubated today this afternoon -Keppra 1,000 mg IVPB BID -Neurology on board - f/u MRI - f/u EEG -CT Head--> No CT evidence of an acute process. -CT Chest--> No CT evidence of an acute process. Cardio: NSTEMI---> likely 2/2 demand ischemia - F/U Echo - Troponin admission 0.42-->0.29 now. I.D--> Sepsis - Blood Cultures Gram + Cocci in clusters - I.D Dr Genao on board - Vanco 1250 mg 250 mls @ 166.667 mls/hr IVPB Q12H - Ceftriaxone 2 Gm 100 mls @ 200 mls/hr IVPB Daily - Lactic Acid 7.8 admission---> 1.6 now -WBC 34.5---> 15.2 now, also s/p seizure FEN NS @ 100 mls Monitor electrolytes NPO DVT ppx: Heparin 5,000U SQ BID Dispo: Continue to monitor in icu. Visit type - Emergency Visit Emergency Visit: Yes ED Registration Date: 01/28/18 Care time: The patient presented to the Emergency Department on the above date and was hospitalized for further evaluation of their emergent condition. - New Patient This patient is new to me today: Yes Date on this admission: 01/29/18 - Critical Care Critical Care patient: Yes Total Critical Care Time (in minutes): 35 Critical Care Statement: The care of this patient involved high complexity decision making to prevent further life threatening deterioration of the patient 's condition and/or to evaluate & treat vital organ system(s) failure or risk of failure.
--- NOTE | 2018-01-29 20:17 | EKG ---
Test Reason : Blood Pressure : / mmHG Vent. Rate : 142 BPM Atrial Rate : 142 BPM P-R Int : 000 ms QRS Dur : 114 ms QT Int : 358 ms P-R-T Axes : 000 -18 065 degrees QTc Int : 550 ms SINUS TACHYCARDIA WITH SHORT ND INCOMPLETE RIGHT BUNDLE BRANCH BLOCK INFERIOR INFARCT , AGE UNDETERMINED ABNORMAL ECG NO PREVIOUS ECGS AVAILABLE Confirmed by SAGAR PAGAN MD ([id number]) on 01/29/2018 8:16:42 PM Referred By: Confirmed By:SAGAR PAGAN MD
--- NOTE | 2018-01-29 20:22 | EKG ---
Test Reason : Blood Pressure : / mmHG Vent. Rate : 088 BPM Atrial Rate : 088 BPM P-R Int : 166 ms QRS Dur : 104 ms QT Int : 608 ms P-R-T Axes : 019 -15 038 degrees QTc Int : 735 ms NORMAL SINUS RHYTHM INFERIOR INFARCT , AGE UNDETERMINED PROLONGED QT ABNORMAL ECG NO PREVIOUS ECGS AVAILABLE Confirmed by SAGAR PAGAN MD ([id number]) on 01/29/2018 8:21:43 PM Referred By: Confirmed By:SAGAR PAGAN MD
--- NOTE | 2018-01-29 20:44 | ECHO ---
Name: DEBRA DIAZ Exam:Adult Echocardiogram Study Date: 01/29/2018 01:52 PM Age: 67 yrs Reason For Study: R/O ENDOCARDITIS Height: 74 in Weight: 212 lb BSA: 2.2 m2 MMode/2D Measurements & Calculations IVSd: 1.0 cm EDV(Teich): 122.3 ml LVIDd: 5.1 cm ESV(Teich): 43.5 ml LVIDs: 3.3 cm LVPWd: 1.0 cm Doppler Measurements & Calculations MV E max adamaris: 48.4 cm/sec MV A max adamaris: 82.4 cm/sec MV E/A: 0.59 Procedure The study was technically limited with all images being suboptimal in quality. Lung tissue interferen ce exacerbated suboptimal views. Left Ventricle Left ventricular systolic function is grossly normal. Ejection Fraction = 55-60%. Mitral Valve Mitral valve did not appear to have vegetations. Limited and difficult views preclude comments on vegetations or other abrnormalities in the remainder of the heart. Interpretation Summary The study was technically limited with all images being suboptimal in quality. Left ventricular systolic function is grossly normal. Ejection Fraction = 55-60%. Mitral valve did not appear to have vegetations. Limited and difficult views preclude comments on vegetations or other abrnormalities in the remainder of the heart. Lung tissue interference exacerbated suboptimal views. Severo Mazariegos MD 01/29/2018 08:44 PM
[2018-01-29] MEDS: levETIRAcetam 500 MG/5 ML INJECTION VIAL IVPB SCH (21:26)
[2018-01-29] MEDS: CHLORHEXIDINE GLUCONATE 4% CLEANSER FOR DECOLONIZATION TP SCH (21:26)
[2018-01-29] MEDS: SODIUM CHLORIDE 1,000 ML IV SCH (21:28)
[2018-01-29] MEDS ORDERED: levETIRAcetam 500 MG/5 ML INJECTION VIAL IVPB SCH ×2 (22:00)
[2018-01-30] MEDS ORDERED: PT OWN MED DRAWER 7, Y5N ONE (02:37)
[2018-01-30] MEDS: VANCOMYCIN 1,250 MG in DEXTROSE 5%-WATER - 250 ML IVPB SCH ×2 (02:46→15:27)
[2018-01-30] MEDS: HEPARIN NA (PORCINE) 5,000 UNITS/ML 1ML VIAL SQ SCH ×3 (06:22→22:51)
[2018-01-30] MEDS ORDERED: LORazepam 2 MG/ML SDV VIAL IVPUSH ONE (06:48)
[2018-01-30 06:53] LABS: BASO % 0.5 % (0-2.0); HEMATOCRIT 36.9 % (35.4-49); HEMOGLOBIN 12.8 GM/dL (11.7-16.9); LYMPH % 8.2 % (8-40); MCH 29.1 pg (25.7-33.7); MCHC 34.7 g/dl (32.0-35.9); MEAN CELL VOLUME 83.7 fl (80-96); MEAN PLT VOLUME 9.7 fl (7.5-11.1); NEUT % 84.3 % (42.8-82.8); PLATELET COUNT 139 K/MM3 (134-434); RBC 4.41 M/mm3 (4.00-5.60); RDW 13.6 % (11.9-15.9); WHITE BLOOD COUNT 10.8 K/mm3 (4.0-10.0)
[2018-01-30 07:23] LABS: ALBUMIN 3.1 g/dl (3.4-5.0); ALK PHOS 102 U/L (45-117); ANION GAP 13 MMOL/L (8-16); BILIRUBIN,TOTAL 1.2 mg/dL (0.2-1.0); BLOOD UREA NITROGEN 14 mg/dL (7-18); CALCIUM 7.9 mg/dL (8.5-10.1); CHLORIDE 110 mmol/L (98-107); CO2 24 mmol/L (21-32); CREATININE 0.8 mg/dL (0.7-1.3); GLUCOSE,RANDOM 124 mg/dL (74-106); MAGNESIUM 2.1 mg/dL (1.8-2.4); PHOSPHOROUS 2.2 mg/dL (2.5-4.9); POTASSIUM 3.1 mmol/L (3.5-5.1); SGOT/AST 167 U/L (15-37); SGPT/ALT 96 U/L (12-78); SODIUM 147 mmol/L (136-145); TOT PROT 5.7 g/dl (6.4-8.2)
[2018-01-30 07:47] LABS: INR 1.35 (0.83-1.09); PROTHROMBIN TIME (PATIENT) 15.2 SEC (9.7-13.0)
[2018-01-30] MEDS: KCL 10 MEQ IVPB 10 MEQ/100 ML INFUS.BAG IVPB SCH ×3 (09:06→12:20)
--- NOTE | 2018-01-30 09:59 | PN ---
Physical Exam: SUBJECTIVE: Patient is a 67 y/o male with a history of prostate Ca, hypothyroid, HTN, CABG, who is here for AMS. Patient is still altered to place, but knows name and orientation. Patient was combative overnight so he was put in a codi and has mittens on. OBJECTIVE: Vital Signs Temperature 98.0 F 01/30/18 06:00 Pulse Rate 90 01/30/18 08:00 Respiratory Rate 22 01/30/18 08:00 Blood Pressure 149/89 01/30/18 08:00 O2 Sat by Pulse Oximetry (%) 97 01/29/18 20:44 GENERAL: patient sedated and intubated EYES: PERRL, LUNGS: Breath sounds equal, clear to auscultation bilaterally, HEART: Regular rate and rhythm, S1, S2 ABDOMEN: Soft, nontender, nondistended, normoactive bowel sounds, EXTREMITIES: 2+ pulses, warm, well-perfused, no edema. Neuro: patient cannot follow commands SHAGUFTA pagan 5/5 strength SKIN: Warm, dry, normal turgor, no rashes or lesions noted CBC, BMP 01/30/18 05:30 01/30/18 05:30 Microbiology 01/29/18 09:00 Sputum - Endotrachea Suction/Ventilator Gram Stain - Final 01/29/18 09:00 Sputum - Endotrachea Suction/Ventilator Sputum Culture - Preliminary NORMAL RESPIRATORY LAUREEN 01/28/18 22:00 Cerebral Spinal Fluid - Lumbar Puncture Gram Stain - Final 01/28/18 22:00 Cerebral Spinal Fluid - Lumbar Puncture CSF Culture - Preliminary NO GROWTH OBTAINED AFTER 24 HOURS INCUBATION, REINCUBATED. 01/28/18 17:30 Blood - Peripheral Venous Blood Culture - Preliminary Staphylococcus Species Staphylococcus Species#2 01/28/18 17:30 Blood - Peripheral Venous Blood Culture - Preliminary Staphylococcus Species Staphylococcus Species#2 01/28/18 20:00 Cerebral Spinal Fluid - Lumbar Puncture Streptococcus pneumoniae Antigen (M - Final Active Medications Albuterol Sulfate (Ventolin 0.083% Nebulizer Soln -) 1 amp NEB Q4H PRN PRN Reason: SHORT OF BREATH/WHEEZING Last Admin: 01/29/18 09:00 Dose: 1 amp Chlorhexidine Gluconate (Hibiclens For Decolonization -) 1 applic TP HS ANUPAMA Last Admin: 01/29/18 21:26 Dose: 1 applic Heparin Sodium (Porcine) (Heparin -) 5,000 unit SQ TID [facility] Last Admin: 01/30/18 06:22 Dose: 5,000 unit Sodium Chloride (Normal Saline -) 1,000 mls @ 100 mls/hr IV ASDIR ANUPAMA Last Admin: 01/29/18 21:28 Dose: 100 mls/hr Ceftriaxone Sodium 2 gm/ (Dextrose) 100 mls @ 200 mls/hr IVPB DAILY ANUPAMA; Protocol Last Admin: 01/29/18 10:29 Dose: 200 mls/hr Vancomycin HCl 1,250 mg/ (Dextrose) 250 mls @ 166.667 mls/hr IVPB Q12H ANUPAMA; Protocol Last Admin: 01/30/18 02:46 Dose: 166.667 mls/hr Potassium Chloride (Potassium Chloride 10 Meq Premix Ivpb -) 10 meq in 100 mls @ 100 mls/hr IVPB Q60M [facility] Stop: 01/30/18 11:29 Last Admin: 01/30/18 09:06 Dose: 100 mls/hr Levetiracetam (Keppra Injection -) 1,000 mg IVPB BID [facility] Last Admin: 01/29/18 21:26 Dose: 1,000 mg Mupirocin (Bactroban Ointment (For Decolonization) -) 1 applic NS BID [facility] Stop: 02/02/18 21:59 Last Admin: 01/29/18 21:27 Dose: 1 applic ASSESSMENT/PLAN: Patient is a 67 y/o male with a history of prostate Ca, hypothyroid, HTN, CABG, who is here for AMS. #AMS 2/2 to new seizure vs meningitis - Neuro, Dr. Huggins: MRI with contrast once stable, EEG - ID, Dr Syed; Continue Ceftriaxone for broad sepsis coverage - CSF glucose 131, protein 66 - Ceftriazone day 3 - Vancomycin 1.25 ( day 2) - f/u MRI - f/u EEG - head CT: no acute pathology - Keppra 1000mg BID - blood cultures: Staphyloccocus - Echo: LV function normal, EF: 55-60%, no mitral valve vegitations - Abd US: hepatic steatosis, cholecystectomy #hyperglycemia - A1C: 6.1 #DVT ppx - heparin TID FEN - NS @ 100 - repleted K Dispo: f/u medications tomorrow. imaging Visit type - Emergency Visit Emergency Visit: No - New Patient This patient is new to me today: No - Critical Care Critical Care patient: Yes Total Critical Care Time (in minutes): 36 Critical Care Statement: The care of this patient involved high complexity decision making to prevent further life threatening deterioration of the patient 's condition and/or to evaluate & treat vital organ system(s) failure or risk of failure.
[2018-01-30] MEDS: levETIRAcetam 500 MG/5 ML INJECTION VIAL IVPB SCH ×2 (10:16→22:52)
--- NOTE | 2018-01-30 10:47 | PN ---
Progress Note (short form) - Note Progress Note: extubated alert no complaints unable to void last night donohue replaced Vital Signs Period Temp Pulse Resp BP Sys/Quintero Pulse Ox Last 24 Hr 98.0 F-99.4 F 88-115 14-28 131-180/71-100 95-97 cor-rrr lungs clear abd soft,nt ext no edema multiple bruises CBC, BMP 01/30/18 05:30 01/30/18 05:30 Microbiology 01/29/18 09:00 Sputum - Endotrachea Suction/Ventilator Gram Stain - Final 01/29/18 09:00 Sputum - Endotrachea Suction/Ventilator Sputum Culture - Preliminary NORMAL RESPIRATORY LAUREEN 01/28/18 22:00 Cerebral Spinal Fluid - Lumbar Puncture Gram Stain - Final 01/28/18 22:00 Cerebral Spinal Fluid - Lumbar Puncture CSF Culture - Preliminary NO GROWTH OBTAINED AFTER 24 HOURS INCUBATION, REINCUBATED. 01/28/18 17:30 Blood - Peripheral Venous Blood Culture - Preliminary Staphylococcus Species Staphylococcus Species#2 01/28/18 17:30 Blood - Peripheral Venous Blood Culture - Preliminary Staphylococcus Species Staphylococcus Species#2 01/28/18 20:00 Cerebral Spinal Fluid - Lumbar Puncture Streptococcus pneumoniae Antigen (M - Final cxray no infiltrate a/p fever/new onset seizures bacteremia- suspect contaminant! awaiting further ID repeat blood cultures today RUQ ultrasound for abnl lfts same antiiboitcs another 24 hours now extubated and alert Problem List - Problems (1) New onset seizure Code(s): R56.9 - UNSPECIFIED CONVULSIONS (2) Respiratory failure Code(s): J96.90 - RESPIRATORY FAILURE, UNSP, UNSP W HYPOXIA OR HYPERCAPNIA (3) Fever Code(s): R50.9 - FEVER, UNSPECIFIED (4) Lactic acidosis Code(s): E87.2 - ACIDOSIS
--- NOTE | 2018-01-30 11:04 | CONSULT ---
Admitting History and Physical - Primary Care Physician PCP: Edson Sheridan - Admission History of Present Illness: HPI 67 year old male history of prostate cancer, hypothyroidism, hypertension , episode of new onset seizure and mental status with episode of tonic clonic seizure. CT head (-)l. utox was negative Elevated wbc. Patent was intubated, now extubated. . Drowsy but arousable briefly. Falls back to sleep easily. 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" History Source: Medical Record Limitations to Obtaining History: Clinical Condition - Past Medical History Cardiovascular: Yes: HTN Gastrointestinal: Yes: GERD Renal/: Yes: Cancer Endocrine: Yes: Hypothyroidism - Smoking History Smoking history: Never smoked Have you smoked in the past 12 months: No - Alcohol/Substance Use Hx Alcohol Use: No - Social History Usual Living Arrangement: Yes: Other ("lives with sister who has Parkinson's") History - Admission Reason For Visit: ALTERED MENTAL STATUS - Diagnostics X-ray: Report Reviewed CT Scan: Report Reviewed - General Mental Status: Forgetful, Vague, Lethargic Attention: Distractible, Moderate Impairment Ability to Follow Directions: Fair Head/Neck Control: Fair - Hearing Hearing: Normal Hearing Aide: No With Patient: No Speech Evaluation - Communication Primary Language: POLISH Communication: Yes: Simple Responses - Speech Production Able to Make Needs Known: Yes: WNL Intelligibility: Yes: WNL - Speech Characteristics Voice Loudness: Normal Voice Pitch: Yes: Normal Voice Phonatory-based Quality: Yes: Dysphonia (mild) Speech Pattern: Normal Speech Clarity: < 100% Nasal Resonance: Normal Articulation: Yes: Precise - Language/Auditory Comprehension Follows: Yes: 1 Stage Simple Commands - Language/Verbal Expression Able to Communicate Wants and Needs: Yes: WNL - Swallow Evaluation/Bedside Assessment Current Nutritional Intake: NPO Oral Secretions: Yes: Tongue Coated (with secretions/suctioned/cleaned by nursing.) Dentition: Yes: Adequate Facial Symmetry at Rest: Symmetrical Facial Symmetry on Retraction: Symmetrical Facial Movement: Controlled Pucker Lips: Normal Smile: Normal Lingual Movement: Symmetric (sore healing on right side?) Lingual Speed of Movement: Normal Lingual Movement Strgth Against Opposition: Reduced Laryngeal Elevation: WFL Laryngeal Movement: Able to Palpate Labial Seal: WFL Oral Prep Time: WFL A-P Transit: WFL Pocketing: None Timing of Swallow: WFL Coughing/Throat Clear: No Change in Voice: No Recommendations - Speech Evaluation, Impression/Plan Impression: Swallow is brisk. Overtly tolerated puree and 3 oz water test/ continuous drinking from a straw. Pt too lethargic for full PO diet. - Dysphagia Impressions/Plan Dysphagia Impressions: Risk of Aspiration *Silent aspiration: cannot be R/O at bedside Recommendations: Modified Barium Swallow (if cough, congestion, throat clearing, fever), Other (If sufficiently awake, trial of thin water, pudding,yogurt,etc. Seat fully upright, chin flexed.) - Recommendations Medication Administration: Whole with water Liquids: Thin Liquids Supplement: Magic Cup, Ensure Pudding
--- NOTE | 2018-01-30 11:31 | PN ---
Teaching Attending Note Name of Resident: Jason Bauer ATTENDING PHYSICIAN STATEMENT I saw and evaluated the patient. I reviewed the resident's note and discussed the case with the resident. I agree with the resident's findings and plan as documented. SUBJECTIVE: Pt seen and examined in the ICU. Extubated yesterday without incident. Episodes of confusion/agitation overnight. Fever curve trending down. Multiple strains of staph in blood cultures likely contaminant. OBJECTIVE: Vital Signs Period Temp Pulse Resp BP Sys/Quintero Pulse Ox Last 24 Hr 98.0 F-99.4 F 88-108 14-28 131-180/71-100 96-99 Intake & Output 01/27/18 01/28/18 01/29/18 01/30/18 23:59 23:59 23:59 23:59 Intake Total 620 3189 950 Output Total 800 2400 1200 Balance -180 789 -250 Weight 96.275 kg 94.971 kg Gen: confused but able to orient Heart: RRR Lung: decreased breath sounds at the bases Abd: soft, nontender Ext: no edema CBC, BMP 01/30/18 05:30 01/30/18 05:30 Active Medications Albuterol Sulfate (Ventolin 0.083% Nebulizer Soln -) 1 amp NEB Q4H PRN PRN Reason: SHORT OF BREATH/WHEEZING Last Admin: 01/29/18 09:00 Dose: 1 amp Chlorhexidine Gluconate (Hibiclens For Decolonization -) 1 applic TP HS [facility] Last Admin: 01/29/18 21:26 Dose: 1 applic Heparin Sodium (Porcine) (Heparin -) 5,000 unit SQ TID [facility] Last Admin: 01/30/18 06:22 Dose: 5,000 unit Sodium Chloride (Normal Saline -) 1,000 mls @ 100 mls/hr IV ASDIR [facility] Last Admin: 01/29/18 21:28 Dose: 100 mls/hr Ceftriaxone Sodium 2 gm/ (Dextrose) 100 mls @ 200 mls/hr IVPB DAILY [facility]; Protocol Last Admin: 01/29/18 10:29 Dose: 200 mls/hr Vancomycin HCl 1,250 mg/ (Dextrose) 250 mls @ 166.667 mls/hr IVPB Q12H [facility]; Protocol Last Admin: 01/30/18 02:46 Dose: 166.667 mls/hr Levetiracetam (Keppra Injection -) 1,000 mg IVPB BID [facility] Last Admin: 01/30/18 10:16 Dose: 1,000 mg Mupirocin (Bactroban Ointment (For Decolonization) -) 1 applic NS BID [facility] Stop: 02/02/18 21:59 Last Admin: 01/29/18 21:27 Dose: 1 applic ASSESSMENT AND PLAN: Altered Mental Status Seizures s/p Acute Respiratory Failure Gram Positive Bacteremia likely contaminant Severe Sepsis resolving Lactic Acidosis resolved +Troponins likely Demand Ischemia Acute Kidney Injury CAD s/p CABG HTN Hypothyroidism - continue antibiotics - f/u cultures - IVF, change to hypotonic solution - replete lytes - monitor urine output, creatinine - continue antiepileptics - DVT prophylaxis - can monitor on floor critical care time spent in reviewing chart, evaluating patient and formulating plan 35 min
--- NOTE | 2018-01-30 11:32 | PN ---
Progress Note (short form) - Note Progress Note: episode of new onset seizure and mental status change .67 year old male history of prostate cancer, hypothyroidism, hypertension , came to hospital for confusion and had one episode of tonic clonic seizure. His csf seems to be benign and ct head was normal. His wbc was very high. Oksana is intubated and sedated. He has fever of 101 at hospital. his wbc is coming donw. He is extubated and no seizure since yesterday. Eeg is pending. His utox was negative. Neurologial Examinatoin He is drowsy and confused, he was able to tell me his age and name nad not place or date pupils is reactive, corneal and gag reflex is positive no active seizure or twitching was seen He is moving all extremities Lab and data csf protein 66 sugar 131 wbc is 1 wbcs is 10.5 today and on admission as 35. ct unremarkable, mri of brain and eeg is pending Assessment- New onset seizure, no acute findings on ct scan , seizure is under control . 2. high wbc, source of infection is not known and csf seems benign PLAN 1. MRI of brain with contrast once stable, 2. EEG 3. Continue keppra at current dose Unlikley to be meningitis, Patient is being treated for septicemia , and responding clinically Thanking you so much Sherman Huggins MD
[2018-01-30] MEDS: MUPIROCIN 2% TOPICAL OINTMENT FOR DECOLONIZATION NS SCH (11:40)
[2018-01-30] MEDS: CEFTRIAXONE 2 GM in DEXTROSE 5%-WATER 100 ML IVPB SCH (11:41)
[2018-01-30] MEDS: SODIUM CHLORIDE 1,000 ML IV SCH (11:41)
--- NOTE | 2018-01-30 12:15 | PN ---
Teaching Attending Note Name of Resident: Gladys Chandana ATTENDING PHYSICIAN STATEMENT I saw and evaluated the patient. I reviewed the resident's note and discussed the case with the resident. I agree with the resident's findings and plan as documented. SUBJECTIVE: was agitated and combative last night, hasd to be restrained. this am , better and denies any pain, feels tires , and fatigued. denies having mets form his prostate ca. reports surgery but no chemo or radiation . OBJECTIVE: NAD , awake, cooperative , knows his name, age, and location round equal pupils, reactive to light . No JVD , symmetric face. CV: RRR Lungs: CTAB ABd : soft, NT, ND , NL BS Ext : no edema Neuro: limited: nof acial droop. ERIC, round equal pupils, reactive to light. strength :limited exam due to restraints. biceps and trceps 5/5 , hand extruder operator horizontal 5/5 bilaterally. hip flexion and knee flexion /extension and ankkle dorsiflexion /plantar flexion 5/5 bilaterally. reflexes 2+ biceps and knee jerk bilaterally . Nl sensation to light touch ASSESSMENT AND PLAN: 67 y/o gentleman with h/o HTN, and metastatic prostate cancer who presented with AMS and had a tonic clonic seizure in ambulance 1- Seizure: unclear etiology. ? sepsis Vs metastasis to brain, VS stroke . Unlikely ACCOUNTS RECEIVABLE ASSOCIATE infection - No neuro deficits on this limited neuro exam, and mental status improved - cont keppra - MRI and EEG pending 2- Sepsis and G+ bacteremia: - unclear source Vs contaminant . - cont vanco and ceftriaxone day 2 - repeat blood cx - CSF cx pending 3- Transaminitis : NO RUQ tenderness on exam. likely due to cholestasis from ceftriaxone. - US to evaluate 4- NSTEMI: due to demand ischemia . EKG with TWI in lateral leads and RBBB. trop trended down. - Echo reviewed. - further w/u as out pt. might need stress test as out pt 5- INGE : resolved but hypernatremic/dehydrated today due to no po intake. - cont hypotonic fluids - speech eval fro feeding transfer to tele
[2018-01-30] MEDS ORDERED: SODIUM CHLORIDE 0.45% 1,000 ML IV SCH (12:30)
--- NOTE | 2018-01-30 13:05 | PN ---
Progress Note, Physician History of Present Illness: Pt seen and examined at bedside. He is now extubated. He remains confused. - Current Medication List Current Medications: Active Medications Albuterol Sulfate (Ventolin 0.083% Nebulizer Soln -) 1 amp NEB Q4H PRN PRN Reason: SHORT OF BREATH/WHEEZING Last Admin: 01/29/18 09:00 Dose: 1 amp Chlorhexidine Gluconate (Hibiclens For Decolonization -) 1 applic TP HS [facility] Last Admin: 01/29/18 21:26 Dose: 1 applic Heparin Sodium (Porcine) (Heparin -) 5,000 unit SQ TID [facility] Last Admin: 01/30/18 06:22 Dose: 5,000 unit Ceftriaxone Sodium 2 gm/ (Dextrose) 100 mls @ 200 mls/hr IVPB DAILY [facility]; Protocol Last Admin: 01/30/18 11:41 Dose: 200 mls/hr Vancomycin HCl 1,250 mg/ (Dextrose) 250 mls @ 166.667 mls/hr IVPB Q12H [facility]; Protocol Last Admin: 01/30/18 02:46 Dose: 166.667 mls/hr Sodium Chloride (1/2 Normal Saline) 1,000 mls @ 100 mls/hr IV ASDIR [facility] Levetiracetam (Keppra Injection -) 1,000 mg IVPB BID [facility] Last Admin: 01/30/18 10:16 Dose: 1,000 mg Mupirocin (Bactroban Ointment (For Decolonization) -) 1 applic NS BID [facility] Stop: 02/02/18 21:59 Last Admin: 01/30/18 11:40 Dose: 1 applic - Objective Vital Signs: Vital Signs Temperature 98.8 F 01/30/18 10:00 Pulse Rate 86 01/30/18 12:00 Respiratory Rate 22 01/30/18 12:00 Blood Pressure 135/75 01/30/18 12:00 O2 Sat by Pulse Oximetry (%) 99 01/30/18 10:00 Constitutional: Yes: Calm Eyes: Yes: Conjunctiva Clear HENT: Yes: Atraumatic Cardiovascular: Yes: S1, S2 Respiratory: Yes: CTA Bilaterally Gastrointestinal: Yes: Soft Genitourinary: Yes: Castro Present Musculoskeletal: Yes: Muscle Weakness Edema: No Neurological: Yes: Confusion Labs: CBC, BMP 01/30/18 05:30 01/30/18 05:30 INR, PTT INR 1.35 (0.83-1.09) H 01/30/18 05:30 Problem List - Problems (1) INGE (acute kidney injury) Code(s): N17.9 - ACUTE KIDNEY FAILURE, UNSPECIFIED (2) Hypothyroidism Code(s): E03.9 - HYPOTHYROIDISM, UNSPECIFIED (3) Lactic acidosis Code(s): E87.2 - ACIDOSIS (4) New onset seizure Code(s): R56.9 - UNSPECIFIED CONVULSIONS (5) Prostate cancer Code(s): C61 - MALIGNANT NEOPLASM OF PROSTATE Assessment/Plan Current Medications Generic Name Dose Route Start Last Admin Trade Name Freq PRN Reason Stop Dose Admin Albuterol Sulfate 1 amp 01/29/18 08:50 01/29/18 09:00 Ventolin 0.083% Nebulizer Soln - NEB 1 amp Q4H PRN Administration SHORT OF BREATH/WHEEZING Chlorhexidine Gluconate 1 applic 01/28/18 22:00 01/29/18 21:26 Hibiclens For Decolonization - TP 1 applic HS [facility] Administration Heparin Sodium (Porcine) 5,000 unit 01/29/18 06:00 01/30/18 06:22 Heparin - SQ 5,000 unit TID [facility] Administration Ceftriaxone Sodium 2 gm/ 100 mls @ 200 mls/hr 01/29/18 10:00 01/30/18 11:41 Dextrose IVPB 200 mls/hr DAILY [facility] Administration Protocol Vancomycin HCl 1,250 mg/ 250 mls @ 166.667 mls/hr 01/29/18 15:00 01/30/18 02: 46 Dextrose IVPB 166.667 mls/hr Q12H [facility] Administration Protocol Sodium Chloride 1,000 mls @ 100 mls/hr 01/30/18 12:30 1/2 Normal Saline IV ASDIR [facility]UP[facility] Levetiracetam 1,000 mg 01/29/18 22:00 01/30/18 10:16 Keppra Injection - IVPB 1,000 mg BID [facility] Administration Mupirocin 1 applic 01/28/18 22:00 01/30/18 11:40 Bactroban Ointment (For Decolonization) - NS 02/02/18 21:59 1 applic BID [facility] Administration Impression 1. INGE 2. seizure 3. altered mental status 4. HTN 5. resp failure 6. prostate cancer 7. CAD 8. hypothyroid 9. lactic acidosis Plan - lactic acid improved - replace potassium - replace phos - change fluids to 1/2ns - follow urine studies - renal function has stabilized - will follow PRN Dr Cain
[2018-01-30 15:36] VITALS: BMI 26.8
--- NOTE | 2018-01-30 16:09 | PN ---
Physical Exam: SUBJECTIVE: Patient seen and examined this am and afternoon in icu. Responding to questions, less agitated, endorses having a headache. Gram + bacteremia, most likely contaminant. Repeat blood cultures done today. Denies cp or sob. Familt at bedside. OBJECTIVE: Vital Signs Period Temp Pulse Resp BP Sys/Quintero Pulse Ox Last 24 Hr 98.0 F-99.4 F 84-108 18-28 131-180/71-100 96-99 GENERAL: More alert, responding appropriately to questions. HEAD: NC/AT EYES: EOMI ENT: Poor dentition. NECK: No JVD, Supple LUNGS: Dec BS at bases HEART: RRR ABDOMEN: NT, ND, No HSM EXTREMITIES: Bruising right knee s/p fall in bathroom NEUROLOGICAL: No observed Cranial Nerve deficits. SKIN: Multiple Excoriations throughout. H/o picking at skin per famil Laboratory Results - last 24 hr 01/28/18 01/30/18 01/30/18 20:30 05:30 05:30 WBC 10.8 H RBC 4.41 Hgb 12.8 Hct 36.9 MCV 83.7 MCH 29.1 MCHC 34.7 RDW 13.6 Plt Count 139 D MPV 9.7 Absolute Neuts (auto) 9.1 H Neutrophils % 84.3 H Lymphocytes % 8.2 Monocytes % 7.0 Eosinophils % 0.0 Basophils % 0.5 D Nucleated RBC % 0 PT with INR 15.20 H INR 1.35 H Sodium Potassium Chloride Carbon Dioxide Anion Gap BUN Creatinine Creat Clearance w eGFR Random Glucose Calcium Phosphorus Magnesium Total Bilirubin AST ALT Alkaline Phosphatase Total Protein Albumin Free T3 2.5 01/30/18 05:30 WBC RBC Hgb Hct MCV MCH MCHC RDW Plt Count MPV Absolute Neuts (auto) Neutrophils % Lymphocytes % Monocytes % Eosinophils % Basophils % Nucleated RBC % PT with INR INR Sodium 147 H Potassium 3.1 L Chloride 110 H Carbon Dioxide 24 Anion Gap 13 BUN 14 Creatinine 0.8 Creat Clearance w eGFR > 60 Random Glucose 124 H Calcium 7.9 L Phosphorus 2.2 L D Magnesium 2.1 Total Bilirubin 1.2 H AST 167 H D ALT 96 H D Alkaline Phosphatase 102 Total Protein 5.7 L Albumin 3.1 L Free T3 Active Medications Generic Name Dose Route Start Last Admin Trade Name Freq PRN Reason Stop Dose Admin Albuterol Sulfate 1 amp 01/29/18 08:50 01/29/18 09:00 Ventolin 0.083% Nebulizer Soln - NEB 1 amp Q4H PRN Administration SHORT OF BREATH/WHEEZING Chlorhexidine Gluconate 1 applic 01/28/18 22:00 01/29/18 21:26 Hibiclens For Decolonization - TP 1 applic HS [facility] Administration Heparin Sodium (Porcine) 5,000 unit 01/29/18 06:00 01/30/18 14:00 Heparin - SQ 5,000 unit TID [facility] Administration Ceftriaxone Sodium 2 gm/ 100 mls @ 200 mls/hr 01/29/18 10:00 01/30/18 11:41 Dextrose IVPB 200 mls/hr DAILY [facility] Administration Protocol Vancomycin HCl 1,250 mg/ 250 mls @ 166.667 mls/hr 01/29/18 15:00 01/30/18 15: 27 Dextrose IVPB 166.667 mls/hr Q12H [facility] Administration Protocol Sodium Chloride 1,000 mls @ 100 mls/hr 01/30/18 12:30 01/30/18 12:50 1/2 Normal Saline IV 100 mls/hr ASDIR [facility] Administration Levetiracetam 1,000 mg 01/29/18 22:00 01/30/18 10:16 Keppra Injection - IVPB 1,000 mg BID [facility] Administration Mupirocin 1 applic 01/28/18 22:00 01/30/18 11:40 Bactroban Ointment (For Decolonization) - NS 02/02/18 21:59 1 applic BID [facility] Administration ASSESSMENT/PLAN: 67 yo male with PMH prostate CA, hypothyroidism, HTN, CABG, presented to the hospital for AMS, s/p seizure in ambulance on route to hospital and another episode in ED. Pt originally from [place] visiting sister, fell in bathroom. Neuro--> Seizure, Altered Mental Status -Keppra 1,000 mg IVPB BID -Neurology on board - F/u MRI - f/u EEG -CT Head--> No CT evidence of an acute process. -CT Chest--> No CT evidence of an acute process. Cardio: NSTEMI---> likely 2/2 demand ischemia - Troponin admission 0.42-->0.29 yesterday. Echo 01/29 --> EF 50-60%, no vegetations on mitral valve, other valve vegetations cannot be ruled out. -to be monitored on tele I.D--> Sepsis - Blood Cultures Gram + Cocci in clusters - I.D Dr Genao on board - Vanco 1250 mg 250 mls @ 166.667 mls/hr IVPB Q12H - Ceftriaxone 2 Gm 100 mls @ 200 mls/hr IVPB Daily - Lactic Acid 7.8 admission---> 1.6 now -WBC 34.5---> 10.8 now, also s/p seizure -Repeat blood cultures today FEN 06/11 NS 1,000 @ 100 mls/hr Monitor electrolytes NPO DVT ppx: Heparin 5,000U SQ BID Dispo: Continue to monitor in icu. Visit type - Emergency Visit Emergency Visit: Yes ED Registration Date: 01/28/18 Care time: The patient presented to the Emergency Department on the above date and was hospitalized for further evaluation of their emergent condition. - New Patient This patient is new to me today: No - Critical Care Critical Care patient: Yes Total Critical Care Time (in minutes): 35 Critical Care Statement: The care of this patient involved high complexity decision making to prevent further life threatening deterioration of the patient 's condition and/or to evaluate & treat vital organ system(s) failure or risk of failure.
[2018-01-30] MEDS ORDERED: ALBUTEROL SO4 0.083% IH SOL 2.5 MG/3 ML VIAL.NEB. NEB PRN (20:23)
[2018-01-30] MEDS ORDERED: CHLORHEXIDINE GLUCONATE 4% CLEANSER FOR DECOLONIZATION TP SCH (22:00)
[2018-01-30] MEDS ORDERED: VANCOMYCIN 1,500 MG in DEXTROSE 5%-WATER - 500 ML IVPB ONE (22:00)
[2018-01-30] MEDS ORDERED: MUPIROCIN 2% TOPICAL OINTMENT FOR DECOLONIZATION NS SCH (22:00)
[2018-01-31] MEDS: HEPARIN NA (PORCINE) 5,000 UNITS/ML 1ML VIAL SQ SCH ×3 (05:44→21:54)
[2018-01-31 06:23] LABS: HEMATOCRIT 35.5 % (35.4-49); HEMOGLOBIN 12.5 GM/dL (11.7-16.9); MCH 29.5 pg (25.7-33.7); MCHC 35.2 g/dl (32.0-35.9); MEAN CELL VOLUME 83.9 fl (80-96); MEAN PLT VOLUME 9.3 fl (7.5-11.1); PLATELET COUNT 147 K/MM3 (134-434); RBC 4.23 M/mm3 (4.00-5.60); RDW 13.4 % (11.9-15.9); WHITE BLOOD COUNT 7.9 K/mm3 (4.0-10.0)
[2018-01-31 06:53] LABS: ALBUMIN 2.9 g/dl (3.4-5.0); ALK PHOS 90 U/L (45-117); ANION GAP 8 MMOL/L (8-16); BILIRUBIN,TOTAL 0.8 mg/dL (0.2-1.0); BLOOD UREA NITROGEN 11 mg/dL (7-18); CALCIUM 8.1 mg/dL (8.5-10.1); CHLORIDE 109 mmol/L (98-107); CO2 29 mmol/L (21-32); CREATININE 0.8 mg/dL (0.7-1.3); GLUCOSE,RANDOM 125 mg/dL (74-106); MAGNESIUM 1.9 mg/dL (1.8-2.4); PHOSPHOROUS 2.6 mg/dL (2.5-4.9); POTASSIUM 3.4 mmol/L (3.5-5.1); SGOT/AST 168 U/L (15-37); SGPT/ALT 96 U/L (12-78); SODIUM 146 mmol/L (136-145); TOT PROT 5.4 g/dl (6.4-8.2)
[2018-01-31] MEDS ORDERED: PNEUMOC 13-VAL CONJ-DIP CRM/PF 0.5 ML DISP.SYRIN IM ONE ×2 (09:00→18:00)
[2018-01-31] MEDS ORDERED: DEXTROSE 5%-WATER 100 ML IVPB ONE (09:30)
[2018-01-31] MEDS: CEFTRIAXONE 2 GM in DEXTROSE 5%-WATER 100 ML IVPB SCH (09:32)
[2018-01-31] MEDS: levETIRAcetam 500 MG/5 ML INJECTION VIAL IVPB SCH ×2 (09:35→21:52)
[2018-01-31] MEDS ORDERED: POTASSIUM CHLORIDE TABS 20 MEQ TABLET.ER (FP) PO ONE (09:45)
--- NOTE | 2018-01-31 10:01 | PN ---
Progress Note (short form) - Note Progress Note: 67 year old male history of prostate cancer, hypothyroidism, hypertension , came to hospital for confusion and had one episode of tonic clonic seizure. His csf seems to be benign and ct head was normal. His wbc was very high. Paitent is intubated and sedated. His utox was negative. He is feeling much better, transferred to regular floor. He denies any headhace . He has eeg done and mri of brain is pending. Neurologial Examinatoin He is alert oriented x 3, knows month and year but do not know exact date pupils is reactive, corneal and gag reflex is positive complain of left shoulder pain but no weakness identified no active seizure or twitching was seen He is moving all extremities ct unremarkable, mri of brain and eeg report is pending mri of brain i spending Assessment- New onset seizure, no acute findings on ct scan , seizure is under control . 2. high wbc, source of infection is not known and csf seems benign PLAN 1. MRI of brain with contrast can be obteind now 2. EEG pending 3. Continue keppra at current dose Unlikley to be meningitis, continue supportive care Thanking you so much Sherman Huggins MD
--- NOTE | 2018-01-31 12:56 | PN ---
Progress Note, Physician History of Present Illness: Pt seen and examined at bedside. He is much more awake and alert today. He does not remember what happened but his mental status is improved. His daughter is at bedside. - Current Medication List Current Medications: Active Medications Albuterol Sulfate (Ventolin 0.083% Nebulizer Soln -) 1 amp NEB Q4H PRN PRN Reason: SHORT OF BREATH/WHEEZING Heparin Sodium (Porcine) (Heparin -) 5,000 unit SQ TID [facility] Last Admin: 01/31/18 05:44 Dose: 5,000 unit Sodium Chloride (1/2 Normal Saline) 1,000 mls @ 100 mls/hr IV ASDIR [facility] Last Admin: 01/30/18 12:50 Dose: 100 mls/hr Ceftriaxone Sodium 2 gm/ (Dextrose) 100 mls @ 200 mls/hr IVPB DAILY [facility]; Protocol Last Admin: 01/31/18 09:32 Dose: 200 mls/hr Vancomycin HCl 1,250 mg/ (Dextrose) 250 mls @ 166.667 mls/hr IVPB Q12H [facility]; Protocol Levetiracetam (Keppra Injection -) 1,000 mg IVPB BID [facility] Last Admin: 01/31/18 09:35 Dose: 1,000 mg - Objective Vital Signs: Vital Signs Temperature 98 F 01/31/18 10:00 Pulse Rate 74 01/31/18 10:00 Respiratory Rate 18 01/31/18 10:00 Blood Pressure 148/86 01/31/18 10:00 O2 Sat by Pulse Oximetry (%) 99 01/30/18 10:00 Constitutional: Yes: Calm Eyes: Yes: Conjunctiva Clear HENT: Yes: Atraumatic Neck: Yes: Supple Cardiovascular: Yes: S1, S2 Respiratory: Yes: CTA Bilaterally Gastrointestinal: Yes: WNL Genitourinary: Yes: WNL Musculoskeletal: Yes: WNL Edema: No Integumentary: Yes: WNL Neurological: Yes: Oriented Psychiatric: Yes: Oriented Labs: CBC, BMP 01/31/18 05:30 01/31/18 05:30 INR, PTT INR 1.35 (0.83-1.09) H 01/30/18 05:30 Problem List - Problems (1) INGE (acute kidney injury) Code(s): N17.9 - ACUTE KIDNEY FAILURE, UNSPECIFIED (2) Hypothyroidism Code(s): E03.9 - HYPOTHYROIDISM, UNSPECIFIED (3) Lactic acidosis Code(s): E87.2 - ACIDOSIS (4) New onset seizure Code(s): R56.9 - UNSPECIFIED CONVULSIONS (5) Prostate cancer Code(s): C61 - MALIGNANT NEOPLASM OF PROSTATE Assessment/Plan Current Medications Generic Name Dose Route Start Last Admin Trade Name Freq PRN Reason Stop Dose Admin Albuterol Sulfate 1 amp 01/30/18 20:23 Ventolin 0.083% Nebulizer Soln - NEB Q4H PRN SHORT OF BREATH/WHEEZING Heparin Sodium (Porcine) 5,000 unit 01/30/18 22:00 01/31/18 05:44 Heparin - SQ 5,000 unit TID [facility] Administration Sodium Chloride 1,000 mls @ 100 mls/hr 01/30/18 12:30 01/30/18 12:50 1/2 Normal Saline IV 100 mls/hr ASDIR ANUPAMA Administration Ceftriaxone Sodium 2 gm/ 100 mls @ 200 mls/hr 01/31/18 10:00 01/31/18 09:32 Dextrose IVPB 200 mls/hr DAILY [facility] Administration Protocol Vancomycin HCl 1,250 mg/ 250 mls @ 166.667 mls/hr 01/31/18 03:00 Dextrose IVPB Q12H [facility] Protocol Levetiracetam 1,000 mg 01/30/18 22:00 01/31/18 09:35 Keppra Injection - IVPB 1,000 mg BID [facility] Administration Impression 1. INGE 2. seizure 3. altered mental status 4. HTN 5. resp failure 6. prostate cancer 7. CAD 8. hypothyroid 9. lactic acidosis 10. hypernatremia Plan - renal function is stable - mental status is improved - replace potassium - encourage free water intake - will adjust fluids - repeat labs in am - will follow PRN Dr Cain
--- NOTE | 2018-01-31 13:51 | PN ---
Physical Exam: SUBJECTIVE: Patient is a 67 y/o male with a history of prostate Ca, hypothyroid, HTN, CABG, who is here for AMS. Patient returned to baseline, has no acute complaints. OBJECTIVE: Vital Signs Temperature 98 F 01/31/18 10:00 Pulse Rate 74 01/31/18 10:00 Respiratory Rate 18 01/31/18 10:00 Blood Pressure 148/86 01/31/18 10:00 O2 Sat by Pulse Oximetry (%) 99 01/30/18 10:00 GENERAL: patient sedated and intubated EYES: PERRL, LUNGS: Breath sounds equal, clear to auscultation bilaterally, HEART: Regular rate and rhythm, S1, S2 ABDOMEN: Soft, nontender, nondistended, normoactive bowel sounds, EXTREMITIES: 2+ pulses, warm, well-perfused, no edema. Neuro: patient cannot follow commands appropriatley, LE 5/5 strength SKIN: Warm, dry, normal turgor, no rashes or lesions noted CBC, BMP 01/31/18 05:30 01/31/18 05:30 Active Medications Albuterol Sulfate (Ventolin 0.083% Nebulizer Soln -) 1 amp NEB Q4H PRN PRN Reason: SHORT OF BREATH/WHEEZING Heparin Sodium (Porcine) (Heparin -) 5,000 unit SQ TID ANUPAMA Last Admin: 01/31/18 05:44 Dose: 5,000 unit Ceftriaxone Sodium 2 gm/ (Dextrose) 100 mls @ 200 mls/hr IVPB DAILY ANUPAMA; Protocol Last Admin: 01/31/18 09:32 Dose: 200 mls/hr Vancomycin HCl 1,250 mg/ (Dextrose) 250 mls @ 166.667 mls/hr IVPB Q12H ANUPAMA; Protocol Potassium Chloride 20 meq/ (Dextrose/Sodium Chloride) 1,010 mls @ 65 mls/hr IVPB Q15H ANUPAMA Stop: 02/01/18 12:59 Levetiracetam (Keppra Injection -) 1,000 mg IVPB BID ANUPAMA Last Admin: 01/31/18 09:35 Dose: 1,000 mg Microbiology 01/30/18 12:20 Blood - Peripheral Venous Blood Culture - Preliminary NO GROWTH OBTAINED AFTER 24 HOURS, INCUBATION TO CONTINUE FOR 4 DAYS. 01/29/18 09:00 Sputum - Endotrachea Suction/Ventilator Gram Stain - Final 01/29/18 09:00 Sputum - Endotrachea Suction/Ventilator Sputum Culture - Final NORMAL RESPIRATORY LAUREEN 01/30/18 12:00 Blood - Peripheral Venous Blood Culture - Preliminary NO GROWTH OBTAINED AFTER 24 HOURS, INCUBATION TO CONTINUE FOR 4 DAYS. 01/28/18 22:00 Cerebral Spinal Fluid - Lumbar Puncture Gram Stain - Final 01/28/18 22:00 Cerebral Spinal Fluid - Lumbar Puncture CSF Culture - Final NO GROWTH AFTER 48 HOURS INCUBATION 01/28/18 17:30 Blood - Peripheral Venous Blood Culture - Preliminary Staphylococcus Epidermidis Staphylococcus Species#2 01/28/18 17:30 Blood - Peripheral Venous Blood Culture - Preliminary Staphylococcus Coagulase Neg Staphylococcus Coagulase Neg#2 01/28/18 17:41 Urine - Urine - Catheterized Urine Culture - Final NO GROWTH OBTAINED ASSESSMENT/PLAN: Patient is a 67 y/o male with a history of prostate Ca, hypothyroid, HTN, CABG, who is here for AMS. #AMS 2/2 to new seizure vs meningitis - Neuro, Dr. Huggins:f/u EEG - ID, Dr Syed; Continue Ceftriaxone for broad sepsis coverage - CSF glucose 131, protein 66 - Ceftriazone day 4 - Vancomycin 1.25 ( day 3) - MRI: no acute stroke, no acute changes - f/u EEG - head CT: no acute pathology - Keppra 1000mg BID - blood cultures: Staphyloccocus, likely contaminate - Echo: LV function normal, EF: 55-60%, no mitral valve vegitations - Abd US: hepatic steatosis, cholecystectomy #R humeral fracture - f/u ortho consult Dr. Hylton - oxycodone 5mg q6 prn pain management #hyperglycemia - A1C: 6.1 #DVT ppx - heparin TID FEN - NS @ 100 - repleted K Dispo: f/u ortho and ID Visit type - Emergency Visit Emergency Visit: No - New Patient This patient is new to me today: No - Critical Care Critical Care patient: No
[2018-01-31] MEDS ORDERED: ACETAMINOPHEN 500 MG TABLET (FP) PO PRN (14:10)
[2018-01-31] MEDS: POTASSIUM CHLORIDE IVPB SCH (14:14)
[2018-01-31] MEDS: DEXTROSE 5% IVPB SCH (14:14)
[2018-01-31] MEDS: 1/3 NORMAL SALINE IVPB SCH (14:14)
--- NOTE | 2018-01-31 14:18 | PN ---
Progress Note, CONCRETE LAYER - Note Progress Note: Selected Entries 01/30/18 01/30/18 01/30/18 02:00 06:00 10:00 Breakfast NPO Lunch Supper Temperature 98.2 F 98.0 F 98.8 F 01/30/18 01/30/18 01/30/18 10:57 13:09 14:00 Breakfast Lunch 75% Supper Temperature 98.6 F 98.8 F 01/30/18 01/30/18 01/30/18 16:00 18:00 22:00 Breakfast Lunch Supper Temperature 98.7 F 98.4 F 98.4 F 01/30/18 01/31/18 01/31/18 23:11 01:51 04:00 Breakfast Lunch Supper 50% Temperature 98.2 F 98.8 F 01/31/18 01/31/18 06:00 10:00 Breakfast Lunch Supper Temperature 98.4 F 98 F Laboratory Tests 01/28/18 01/29/18 01/30/18 17:30 05:30 05:30 WBC 34.2 H* 15.5 H 10.8 H 01/31/18 05:30 WBC 7.9 Full fluids ordered. Pt now on telemetry.Alert. "I forgot the last three days." Voice is euphonic. Reported to be tolerating diet. Consider diet upgrade,Reg/thin liquid, as tolerated.
[2018-01-31] MEDS: ACETAMINOPHEN 325 MG TABLET (FP) PO PRN (14:51)
--- NOTE | 2018-01-31 17:18 | PN ---
Progress Note (short form) - Note Progress Note: clinically much improved, donohue intact daughter at bedside- reports much improvement Vital Signs Period Temp Pulse Resp BP Sys/Quintero Pulse Ox Last 24 Hr 98 F-99.4 F 71-88 16-20 142-163/80-92 99 cor-rrr llungs clear abd soft,n ext +ecchymoses donohue CBC, BMP 01/31/18 05:30 01/31/18 05:30 Microbiology 01/28/18 17:30 Blood - Peripheral Venous Blood Culture - Preliminary Staphylococcus Epidermidis Staphylococcus Species#2 01/30/18 12:20 Blood - Peripheral Venous Blood Culture - Preliminary NO GROWTH OBTAINED AFTER 24 HOURS, INCUBATION TO CONTINUE FOR 4 DAYS. 01/29/18 09:00 Sputum - Endotrachea Suction/Ventilator Gram Stain - Final 01/29/18 09:00 Sputum - Endotrachea Suction/Ventilator Sputum Culture - Final NORMAL RESPIRATORY LAUREEN 01/30/18 12:00 Blood - Peripheral Venous Blood Culture - Preliminary NO GROWTH OBTAINED AFTER 24 HOURS, INCUBATION TO CONTINUE FOR 4 DAYS. 01/28/18 22:00 Cerebral Spinal Fluid - Lumbar Puncture Gram Stain - Final 01/28/18 22:00 Cerebral Spinal Fluid - Lumbar Puncture CSF Culture - Final NO GROWTH AFTER 48 HOURS INCUBATION 01/28/18 17:30 Blood - Peripheral Venous Blood Culture - Preliminary Staphylococcus Coagulase Neg Staphylococcus Coagulase Neg#2 01/28/18 17:41 Urine - Urine - Catheterized Urine Culture - Final NO GROWTH OBTAINED 01/28/18 20:00 Cerebral Spinal Fluid - Lumbar Puncture Streptococcus pneumoniae Antigen (M - Final a/p fever/new onset seizures bacteremia- suspect contaminant!-multiple coag neg staph species! awaiting further ID repeat blood cultures pending RUQ ultrasound for abnl lfts-hepatic stetosis same antiiboitcs another 24 hours now extubated and alert daughter reports 2 weeks ago he visited a friend in [place]- had a "syncopal" episode in which he lost bladder control- ?seizure overall improved, f/u serologies if repeat blood cultures are negative can d/c vancomycin in am Problem List - Problems (1) New onset seizure Code(s): R56.9 - UNSPECIFIED CONVULSIONS (2) Respiratory failure Code(s): J96.90 - RESPIRATORY FAILURE, UNSP, UNSP W HYPOXIA OR HYPERCAPNIA (3) Fever Code(s): R50.9 - FEVER, UNSPECIFIED (4) Lactic acidosis Code(s): E87.2 - ACIDOSIS
[2018-01-31] MEDS ORDERED: MORPHINE SULFATE 2 MG/ML VIAL IVPUSH ONE (17:50)
[2018-01-31] MEDS ORDERED: oxyCODONE HCL 5 MG TABLET PO PRN (17:51)
--- NOTE | 2018-01-31 19:11 | PN ---
Teaching Attending Note Name of Resident: Gladys Ellington ATTENDING PHYSICIAN STATEMENT I saw and evaluated the patient. I reviewed the resident's note and discussed the case with the resident. I agree with the resident's findings and plan as documented. SUBJECTIVE: no fever or chills. feels better . per daughter he is at [place] mentation. has L upper arm pain . and upper thigh pain when he lifts his leg. OBJECTIVE: NAD, awake CV: RRR Lungs: CTAB ABd : soft, NT, ND , NL BS Ext : no edema Neuro: no facial droop. EOMI, round equal pupils, reactive to light. strength :5/5 in Ruper extremity proximally and distally, b/l LE proximally and distally. LUE was not tested due to pain in shoulder reflexes 2+ biceps and knee jerk bilaterally . Nl sensation to light touch MS: bruises and pain in ENOCH arm . limited range of motion due ot pain ASSESSMENT AND PLAN: 67 y/o gentleman with h/o HTN, and metastatic prostate cancer who presented with AMS and had a tonic clonic seizure in ambulance 1- Seizure: unclear etiology. - MRI reviewed. no stroke or acute abn ,no Mets - cont keppra - EEG pending 2- Sepsis and G+ bacteremia: probably contaminant - cont vanco and ceftriaxone day 3. possible dc abx tomorrow if repeat cx remains neg - repeat blood cx - CSF cx neg 3- Transaminitis : US reviewed. steatosis 4- NSTEMI: due to demand ischemia . - further w/u as out pt. might need stress test as out pt 5- L arm painand bruise. xray obtained . humeral head Fx. consult ortho . immobilization . obtain xray of L hip due to pain 6-INGE : resolved . conto be hyponatremia. cont hypotonic IVf dispo : HLOC . d/w daughter and patient
[2018-01-31] MEDS: VANCOMYCIN 1,250 MG in DEXTROSE 5%-WATER - 250 ML IVPB SCH (22:32)
[2018-02-01] MEDS: POTASSIUM CHLORIDE IVPB SCH (06:28)
[2018-02-01] MEDS: 1/3 NORMAL SALINE IVPB SCH (06:28)
[2018-02-01] MEDS: DEXTROSE 5% IVPB SCH (06:28)
[2018-02-01] MEDS: HEPARIN NA (PORCINE) 5,000 UNITS/ML 1ML VIAL SQ SCH ×3 (06:28→21:18)
[2018-02-01] MEDS: VANCOMYCIN 1,250 MG in DEXTROSE 5%-WATER - 250 ML IVPB SCH (06:35)
[2018-02-01 06:50] LABS: HEMATOCRIT 32.7 % (35.4-49); HEMOGLOBIN 11.4 GM/dL (11.7-16.9); MCH 29.1 pg (25.7-33.7); MEAN CELL VOLUME 83.3 fl (80-96); MEAN PLT VOLUME 9.1 fl (7.5-11.1); PLATELET COUNT 147 K/MM3 (134-434); RBC 3.93 M/mm3 (4.00-5.60); RDW 13.3 % (11.9-15.9); WHITE BLOOD COUNT 6.4 K/mm3 (4.0-10.0)
[2018-02-01 07:22] LABS: ALBUMIN 2.6 g/dl (3.4-5.0); ANION GAP 9 MMOL/L (8-16); BLOOD UREA NITROGEN 8 mg/dL (7-18); CHLORIDE 107 mmol/L (98-107); CO2 27 mmol/L (21-32); CREATININE 0.7 mg/dL (0.7-1.3); GLUCOSE,RANDOM 121 mg/dL (74-106); MAGNESIUM 1.8 mg/dL (1.8-2.4); POTASSIUM 3.5 mmol/L (3.5-5.1); SGOT/AST 150 U/L (15-37); SGPT/ALT 93 U/L (12-78); SODIUM 143 mmol/L (136-145)
[2018-02-01 07:24] LABS: ALK PHOS 77 U/L (45-117); BILIRUBIN,TOTAL 0.6 mg/dL (0.2-1.0); TOT PROT 5.1 g/dl (6.4-8.2)
--- NOTE | 2018-02-01 07:56 | PN ---
Progress Note (short form) - Note Progress Note: 67 year old male history of prostate cancer, hypothyroidism, hypertension , came to hospital for confusion and had one episode of tonic clonic seizure. His csf seems to be benign and ct head was normal. His wbc was very high. Paitent is intubated and sedated. His utox was negative. He is feeling much better, mri of brain is noraml Neurologial Examinatoin VSS afebril He is alert oriented x 3, knows month and year but do not know exact date pupils is reactive, corneal and gag reflex is positive complain of left shoulder pain but no weakness identified no active seizure or twitching was seen He is moving all extremities ct unremarkable, mri of brain and eeg report is pending mri of brain is normal Assessment- New onset seizure, no acute findings on ct scan , seizure is under control . mri of brain is unremarkable. Most likley his seizure was induced by septicemia, and He would not require retirement AED. Continue for next 3-4 week and would taper off as outpatient after consulting with patient PLAN sashaue current dose of keppra I would see him outpatient , and kaity tapering him off keppra after 3-4 week Thanking you so much Sherman Huggins MD
[2018-02-01] MEDS ORDERED: DEXTROSE 5%-WATER 100 ML IVPB ONE (09:11)
[2018-02-01] MEDS ORDERED: PT OWN MED DRAWER 7, Y5N ONE (09:11)
--- NOTE | 2018-02-01 09:22 | PN ---
Progress Note, Physician History of Present Illness: PULMONARY ALERT,NO DISTRESS,-SOB - Current Medication List Current Medications: Active Medications Acetaminophen (Tylenol -) 650 mg PO Q6H PRN PRN Reason: PAIN Last Admin: 01/31/18 14:51 Dose: 650 mg Albuterol Sulfate (Ventolin 0.083% Nebulizer Soln -) 1 amp NEB Q4H PRN PRN Reason: SHORT OF BREATH/WHEEZING Heparin Sodium (Porcine) (Heparin -) 5,000 unit SQ TID ANUPAMA Last Admin: 02/01/18 06:28 Dose: 5,000 unit Ceftriaxone Sodium 2 gm/ (Dextrose) 100 mls @ 200 mls/hr IVPB DAILY ANUPAMA; Protocol Last Admin: 01/31/18 09:32 Dose: 200 mls/hr Potassium Chloride 20 meq/ (Dextrose/Sodium Chloride) 1,010 mls @ 65 mls/hr IVPB Q15H ANUPAMA Stop: 02/01/18 12:59 Last Admin: 02/01/18 06:28 Dose: 65 mls/hr Vancomycin HCl 1,250 mg/ (Dextrose) 250 mls @ 166.667 mls/hr IVPB Q12H ANUPAMA; Protocol Levetiracetam (Keppra Injection -) 1,000 mg IVPB BID ANUPAMA Last Admin: 01/31/18 21:52 Dose: 1,000 mg Oxycodone HCl (Roxicodone -) 5 mg PO Q6H PRN PRN Reason: PAIN LEVEL 6-10 Last Admin: 01/31/18 21:58 Dose: 5 mg - Objective Vital Signs: Vital Signs Temperature 98.5 F 02/01/18 05:00 Pulse Rate 98 H 02/01/18 05:00 Respiratory Rate 18 02/01/18 05:00 Blood Pressure 134/57 02/01/18 05:00 O2 Sat by Pulse Oximetry (%) 99 01/31/18 20:54 Constitutional: Yes: Well Nourished, Calm Eyes: Yes: WNL HENT: Yes: WNL Neck: Yes: WNL Cardiovascular: Yes: Regular Rate and Rhythm, S1, S2 Respiratory: Yes: CTA Bilaterally Gastrointestinal: Yes: Normal Bowel Sounds, Soft Extremities: Yes: WNL Edema: No Labs: CBC, BMP 02/01/18 05:30 02/01/18 05:30 INR, PTT INR 1.35 (0.83-1.09) H 01/30/18 05:30 Problem List - Problems (1) Altered mental state Code(s): R41.82 - ALTERED MENTAL STATUS, UNSPECIFIED (2) INGE (acute kidney injury) Code(s): N17.9 - ACUTE KIDNEY FAILURE, UNSPECIFIED (3) Failed CABG (coronary artery bypass graft) Code(s): T82.218A - [facility] COMPL OF CORONARY ARTERY BYPASS GRAFT, INIT ENCNTR (4) Fever Code(s): R50.9 - FEVER, UNSPECIFIED (5) Hypothyroidism Code(s): E03.9 - HYPOTHYROIDISM, UNSPECIFIED (6) Prostate cancer Code(s): C61 - MALIGNANT NEOPLASM OF PROSTATE (7) Respiratory failure Code(s): J96.90 - RESPIRATORY FAILURE, UNSP, UNSP W HYPOXIA OR HYPERCAPNIA (8) Seizure Code(s): R56.9 - UNSPECIFIED CONVULSIONS Assessment/Plan ASSESSMENT AND PLAN: Altered Mental Status improved Seizures s/p Acute Respiratory Failure Gram Positive Bacteremia likely contaminant Severe Sepsis resolved Lactic Acidosis resolved +Troponins likely Demand Ischemia Acute Kidney Injury CAD s/p CABG HTN Hypothyroidism Humeral fx - antibiotics as per ID - replete lytes - monitor urine output, creatinine - antiepileptics - DVT prophylaxis - ortho margarita GRIDER
--- NOTE | 2018-02-01 09:33 | PN ---
Physical Exam: SUBJECTIVE: Patient seen and examined. c/o left shoulder with movement. was able to walk up and down hallway slowly yesterday OBJECTIVE: Vital Signs Period Temp Pulse Resp BP Sys/Quintero Pulse Ox Last 24 Hr 97.7 F-99.4 F 69-98 18-20 134-152/57-86 99 GENERAL: The patient is awake, alert, in no acute distress. EYES: PERRL, extraocular movements intact, sclera anicteric, conjunctiva clear. No ptosis. ENT: oropharynx clear without exudates, moist mucous membranes. LUNGS: Breath sounds equal, clear to auscultation bilaterally, no wheezes, no crackles, no accessory muscle use. HEART: Regular rate and rhythm, S1, S2 without murmur, rub or gallop. ABDOMEN: Soft, nontender, nondistended, normoactive bowel sounds, no guarding, no rebound, no hepatosplenomegaly, no masses. EXTREMITIES: 2+ pulses, warm, well-perfused, no edema. NEUROLOGICAL: Cranial nerves II through XII grossly intact. Normal speech, gait not observed. PSYCH: Normal mood, normal affect. SKIN: Warm, dry, normal turgor, no rashes or lesions noted Laboratory Results - last 24 hr 02/01/18 02/01/18 05:30 05:30 WBC 6.4 RBC 3.93 L Hgb 11.4 L Hct 32.7 L MCV 83.3 MCH 29.1 MCHC 35.0 RDW 13.3 Plt Count 147 MPV 9.1 Sodium 143 Potassium 3.5 Chloride 107 Carbon Dioxide 27 Anion Gap 9 BUN 8 Creatinine 0.7 Creat Clearance w eGFR > 60 Random Glucose 121 H Calcium 8.0 L Magnesium 1.8 Total Bilirubin 0.6 AST 150 H ALT 93 H Alkaline Phosphatase 77 D Total Protein 5.1 L Albumin 2.6 L Active Medications Generic Name Dose Route Start Last Admin Trade Name Freq PRN Reason Stop Dose Admin Acetaminophen 650 mg 01/31/18 14:43 01/31/18 14:51 Tylenol - PO 650 mg Q6H PRN Administration PAIN Albuterol Sulfate 1 amp 01/30/18 20:23 Ventolin 0.083% Nebulizer Soln - NEB Q4H PRN SHORT OF BREATH/WHEEZING Heparin Sodium (Porcine) 5,000 unit 01/30/18 22:00 02/01/18 06:28 Heparin - SQ 5,000 unit TID ANUPAMA Administration Ceftriaxone Sodium 2 gm/ 100 mls @ 200 mls/hr 01/31/18 10:00 01/31/18 09:32 Dextrose IVPB 200 mls/hr DAILY ANUPAMA Administration Protocol Potassium Chloride 20 meq/ 1,010 mls @ 65 mls/hr 01/31/18 13:00 02/01/18 06: 28 Dextrose/Sodium Chloride IVPB 02/01/18 12:59 65 mls/hr Q15H ANUPAMA Administration Vancomycin HCl 1,250 mg/ 250 mls @ 166.667 mls/hr 02/01/18 10:30 Dextrose IVPB Q12H ANUPAMA Protocol Levetiracetam 1,000 mg 01/30/18 22:00 01/31/18 21:52 Keppra Injection - IVPB 1,000 mg BID ANUPAMA Administration Oxycodone HCl 5 mg 01/31/18 17:51 01/31/18 21:58 Roxicodone - PO 5 mg Q6H PRN Administration PAIN LEVEL 6-10 Home Medications Medication Instructions Recorded Clopidogrel Bisulfate [Clopidogrel] 75 mg PO DAILY 01/28/18 Levothyroxine [Synthroid -] 37.5 mcg PO DAILY 01/28/18 Metoprolol Tartrate [Lopressor -] 12.5 mg PO BID 01/28/18 Ranitidine [Zantac -] 150 mg PO BID 01/28/18 Tadalafil [Cialis] 20 mg PO Q2D 01/28/18 Venlafaxine HCl [Effexor -] 75 mg PO DAILY 01/28/18 Atorvastatin Calcium 40 tab PO HS 01/31/18 ASSESSMENT/PLAN: 67 yr old male with a history of prostate Ca, hypothyroid, HTN, s/p CABG, admitted for evaluation for AMS. discussed with sister and patient regarding their concern for home medications that were held, due to acute sepsis effexor, plavix and toprol was held, since pt is improving will restart meds in the AM. #AMS due to new onset seizure of unclear etiology, no finds on MRI or head CT. pending serological studies for infectious agents that may have contributed - Neuro consulted: Dr. Huggins:f/u EEG, eeg completed on 01/30, pending read - Keppra 1000mg BID #Sepsis - ID, Dr Genao; Continue Ceftriaxone for broad sepsis coverage for 5 days, today is day 4, appreciate recommendations. bld cx likely contaminants, repeat cx negative. - Vancomycin completed 3-days, dc today #R humeral fracture - consult Dr. Hylton, evaluated today, RICE tx and f/u was outpatient - oxycodone 5mg q6 prn pain management #right hip pain, xray pending for further evaluation - physical therapy, pain control #Transaminitis - ultrasound with hepatic steatosis, now levels are trending down. hold home statin #HTN/ CHF/CAD - Echo: LV function normal, EF: 55-60%, no mitral valve vegitations, evaluate BP and HR tomorrow, home meds are scheduled to restart in the AM - restart lopressor 12.5 po BID - effexor 75mg po daily - plavix 75mg po daily #Hypothyroid - continue synthroid 37.5mcg po daily #Hypernatremia, hypokalemia - dc potassium chl IV, potassium normal today - hypernatremia has improved - dc jayde today #hyperglycemia - A1C: 6.1 #NSTEMI - will need outpatient work-up with cardiology, elevated troponins have trended down #DVT ppx - heparin TID Diet:advance to regular diet Dispo: pending physical therapy eval, may need subsacute rehab Visit type - Emergency Visit Emergency Visit: No - New Patient This patient is new to me today: Yes Date on this admission: 02/01/18 - Critical Care Critical Care patient: No - Discharge Referral Referred to [facility] Med P.C.: No
[2018-02-01] MEDS: ACETAMINOPHEN 325 MG TABLET (FP) PO PRN (09:41)
[2018-02-01] MEDS: CEFTRIAXONE 2 GM in DEXTROSE 5%-WATER 100 ML IVPB SCH (09:42)
[2018-02-01] MEDS: levETIRAcetam 500 MG/5 ML INJECTION VIAL IVPB SCH ×2 (09:42→21:17)
[2018-02-01] MEDS ORDERED: VANCOMYCIN 1,250 MG in DEXTROSE 5%-WATER - 250 ML IVPB SCH (10:30)
--- NOTE | 2018-02-01 12:16 | PN ---
Progress Note (short form) - Note Progress Note: Pt seen and examined. Pt is a 67 yo right hand dom Male 4 days s/p fall, with c/ o pain in the left upper arm. He fell secondary to a seizure. Xrays in the ER confirmed a nondisplaced, acute left proximal humerus fracture. PE LUE grossly NVI Moderate swelling, not severe + resolving bruising upper arm Good ROM at the left elbow, forearm, wrist, fingers Imp Acute left proximal humerus fracture, does not need surgery Rec Sling, ice, light activities allowed. Can DC from an ortho pov and f/u as an out pt
--- NOTE | 2018-02-01 14:14 | PN ---
Progress Note (short form) - Note Progress Note: clinically much improved, donohue intact Vital Signs Period Temp Pulse Resp BP Sys/Quintero Pulse Ox Last 24 Hr 97.7 F-99.4 F 69-98 18-20 134-152/57-92 96-99 cor-rrr lungs clear abd soft,nt +donohue ext no edema CBC, BMP 02/01/18 05:30 02/01/18 05:30 Microbiology 01/30/18 12:20 Blood - Peripheral Venous Blood Culture - Preliminary NO GROWTH OBTAINED AFTER 48 HOURS, INCUBATION TO CONTINUE FOR 3 DAYS. 01/30/18 12:00 Blood - Peripheral Venous Blood Culture - Preliminary NO GROWTH OBTAINED AFTER 48 HOURS, INCUBATION TO CONTINUE FOR 3 DAYS. 01/28/18 17:30 Blood - Peripheral Venous Blood Culture - Preliminary Staphylococcus Epidermidis Staph Hominis Sub Sp Hominis 01/28/18 17:30 Blood - Peripheral Venous Blood Culture - Preliminary Staph Hominis Sub Sp Hominis Staph Capitis Subsp Capitis 01/29/18 09:00 Sputum - Endotrachea Suction/Ventilator Gram Stain - Final 01/29/18 09:00 Sputum - Endotrachea Suction/Ventilator Sputum Culture - Final NORMAL RESPIRATORY LAUREEN 01/28/18 22:00 Cerebral Spinal Fluid - Lumbar Puncture Gram Stain - Final 01/28/18 22:00 Cerebral Spinal Fluid - Lumbar Puncture CSF Culture - Final NO GROWTH AFTER 48 HOURS INCUBATION 01/28/18 17:41 Urine - Urine - Catheterized Urine Culture - Final NO GROWTH OBTAINED 01/28/18 20:00 Cerebral Spinal Fluid - Lumbar Puncture Streptococcus pneumoniae Antigen (M - Final a/p fever/new onset seizures-?seizure 2 weeks [employer] in [place] bacteremia- suspect contaminant!-multiple coag neg staph species! repeat blood cultures negative, multiple ASTROCHEMIST - contaminants d/c vancomycin RUQ ultrasound for abnl lfts-hepatic stetosis urinary retention day #4 rocephin would complete 5 days extensive workup- no infectious source found Problem List - Problems (1) New onset seizure Code(s): R56.9 - UNSPECIFIED CONVULSIONS (2) Respiratory failure Code(s): J96.90 - RESPIRATORY FAILURE, UNSP, UNSP W HYPOXIA OR HYPERCAPNIA (3) Fever Code(s): R50.9 - FEVER, UNSPECIFIED (4) Lactic acidosis Code(s): E87.2 - ACIDOSIS
--- NOTE | 2018-02-01 15:10 | PN ---
Teaching Attending Note Name of Resident: Ottoniel Madrid ATTENDING PHYSICIAN STATEMENT I saw and evaluated the patient. I reviewed the resident's note and discussed the case with the resident. I agree with the resident's findings and plan as documented. SUBJECTIVE: No fever or chills . feels better . L upper arm pain. No pain in L hip or thigh OBJECTIVE: NAD, awake CV: RRR Lungs: CTAB Ext : no edema . L upper arm bruise Neuro: no facial droop. EOMI, round equal pupils, reactive to light. strength :5/5 in R upper extremity proximally and distally.5/5 in LE proximally and distally bilaterally . LUE was not tested due to pain in shoulder Reflexes 2+ biceps and knee jerk bilaterally . Nl sensation to light touch skin : small bruise on skin at site of LP ( 2 cm in diameter ) ASSESSMENT AND PLAN: 67 y/o gentleman with h/o HTN, and metastatic prostate cancer who presented with AMS and had a tonic clonic seizure in ambulance 1- Seizure: unclear etiology. probably had a seizure 3 weeks ago - EEG done , pending read. MRI with no stroke , mets or acute process - cont keppra. 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 LFTs trended down 4- NSTEMI: due to demand ischemia . - further w/u as out pt. might need stress test as out pt 5- L Humeral head Fx: sling. seen by ortho . L Hip xray pending 6-INGE : resolved . dc IVF dispo : HLOC
[2018-02-01] MEDS ORDERED: VENLAFAXINE HCL 75 MG TABLET PO ONE (17:45)
[2018-02-01] MEDS: RANITIDINE HCL 150 MG TABLET (FP) PO SCH (21:17)
[2018-02-01] MEDS: METOPROLOL TARTRATE 25 MG TABLET (FP) PO SCH (21:17)
[2018-02-02] MEDS: HEPARIN NA (PORCINE) 5,000 UNITS/ML 1ML VIAL SQ SCH ×3 (06:07→22:11)
[2018-02-02 07:02] LABS: BASO % 0.8 % (0-2.0); EOS % 2.9 % (0-4.5); HEMOGLOBIN 12.2 GM/dL (11.7-16.9); LYMPH % 13.2 % (8-40); MCH 29.4 pg (25.7-33.7); MEAN CELL VOLUME 83.9 fl (80-96); MONO % 8.1 % (3.8-10.2); PLATELET COUNT 181 K/MM3 (134-434); RBC 4.17 M/mm3 (4.00-5.60); RDW 13.3 % (11.9-15.9); WHITE BLOOD COUNT 7.7 K/mm3 (4.0-10.0)
--- NOTE | 2018-02-02 07:33 | PN ---
Progress Note (short form) - Note Progress Note: 67 year old male history of prostate cancer, hypothyroidism, hypertension , came to hospital for confusion and had one episode of tonic clonic seizure. His csf seems to be benign and ct head was normal. His wbc was very high. Paitent is intubated and sedated. His utox was negative. He did have one more episode three weeks, when he has brief lase of Consiousness and urinary incontinence. SUBJECTIVE: He is feeling better, and no more seizure. NO hedache NEUROLOGICAL EXAMINATION: VSS afebril He is alert oriented x 3, knows month and year but do not know exact date pupils is reactive, corneal and gag reflex is positive complain of left shoulder pain but no weakness identified no active seizure or twitching was seen He is moving all extremities ct unremarkable, mri of brain and eeg report is pending mri of brain is normal Assessment- New onset seizure, no acute findings on ct scan , seizure is under control . mri of brain is unremarkable. He has another episode of seizure three week ago. Inview of two seizure , I would conintue AED . PLAN 1.conitnue current dose of keppra and continue for now - Once he is discharged from hospital, I would follow up outpatient Thanking you so much Sherman Huggins MD
[2018-02-02 08:19] LABS: ALBUMIN 2.8 g/dl (3.4-5.0); ALK PHOS 107 U/L (45-117); ANION GAP 11 MMOL/L (8-16); BILIRUBIN,DIRECT 0.2 mg/dL (0.0-0.2); BILIRUBIN,TOTAL 0.7 mg/dL (0.2-1.0); BLOOD UREA NITROGEN 9 mg/dL (7-18); CALCIUM 8.2 mg/dL (8.5-10.1); CHLORIDE 107 mmol/L (98-107); CO2 27 mmol/L (21-32); CREATININE 0.6 mg/dL (0.7-1.3); GLUCOSE,RANDOM 116 mg/dL (74-106); MAGNESIUM 1.7 mg/dL (1.8-2.4); PHOSPHOROUS 3.9 mg/dL (2.5-4.9); POTASSIUM 3.7 mmol/L (3.5-5.1); SGOT/AST 201 U/L (15-37); SGPT/ALT 127 U/L (12-78); SODIUM 145 mmol/L (136-145); TOT PROT 5.5 g/dl (6.4-8.2)
--- NOTE | 2018-02-02 08:57 | PN ---
Progress Note, Physician History of Present Illness: PULMONARY ALERT,COMFORTABLE,-CO,-SOB,SITTING UP IN BED - Current Medication List Current Medications: Active Medications Acetaminophen (Tylenol -) 650 mg PO Q6H PRN PRN Reason: PAIN Last Admin: 02/01/18 09:41 Dose: 650 mg Albuterol Sulfate (Ventolin 0.083% Nebulizer Soln -) 1 amp NEB Q4H PRN PRN Reason: SHORT OF BREATH/WHEEZING Clopidogrel Bisulfate (Plavix -) 75 mg PO DAILY [facility] Heparin Sodium (Porcine) (Heparin -) 5,000 unit SQ TID [facility] Last Admin: 02/02/18 06:07 Dose: 5,000 unit Ceftriaxone Sodium 2 gm/ (Dextrose) 100 mls @ 200 mls/hr IVPB DAILY [facility]; Protocol Last Admin: 02/01/18 09:42 Dose: 200 mls/hr Levetiracetam (Keppra Injection -) 1,000 mg IVPB BID [facility] Last Admin: 02/01/18 21:17 Dose: 1,000 mg Levothyroxine Sodium (Synthroid -) 37.5 mcg PO DAILY [facility] Metoprolol Tartrate (Lopressor -) 12.5 mg PO BID [facility] Last Admin: 02/01/18 21:17 Dose: 12.5 mg Oxycodone HCl (Roxicodone -) 5 mg PO Q6H PRN PRN Reason: PAIN LEVEL 6-10 Last Admin: 01/31/18 21:58 Dose: 5 mg Ranitidine HCl (Zantac -) 150 mg PO BID [facility] Last Admin: 02/01/18 21:17 Dose: 150 mg Venlafaxine HCl (Effexor -) 75 mg PO DAILY [facility] - Objective Vital Signs: Vital Signs Temperature 98.2 F 02/02/18 05:00 Pulse Rate 74 02/02/18 05:00 Respiratory Rate 18 02/02/18 05:00 Blood Pressure 136/93 02/02/18 05:00 O2 Sat by Pulse Oximetry (%) 95 02/01/18 21:00 Constitutional: Yes: Well Nourished, Calm Eyes: Yes: WNL HENT: Yes: WNL Neck: Yes: WNL Cardiovascular: Yes: Regular Rate and Rhythm, S1, S2 Respiratory: Yes: CTA Bilaterally Gastrointestinal: Yes: Normal Bowel Sounds, Soft Extremities: Yes: WNL Edema: No Labs: CBC, BMP 02/02/18 05:30 02/02/18 05:30 INR, PTT INR 1.35 (0.83-1.09) H 01/30/18 05:30 Problem List - Problems (1) Altered mental state Code(s): R41.82 - ALTERED MENTAL STATUS, UNSPECIFIED (2) INGE (acute kidney injury) Code(s): N17.9 - ACUTE KIDNEY FAILURE, UNSPECIFIED (3) Failed CABG (coronary artery bypass graft) Code(s): T82.218A - [facility] COMPL OF CORONARY ARTERY BYPASS GRAFT, INIT ENCNTR (4) Fever Code(s): R50.9 - FEVER, UNSPECIFIED (5) Hypothyroidism Code(s): E03.9 - HYPOTHYROIDISM, UNSPECIFIED (6) Prostate cancer Code(s): C61 - MALIGNANT NEOPLASM OF PROSTATE (7) Respiratory failure Code(s): J96.90 - RESPIRATORY FAILURE, UNSP, UNSP W HYPOXIA OR HYPERCAPNIA (8) Seizure Code(s): R56.9 - UNSPECIFIED CONVULSIONS Assessment/Plan ASSESSMENT AND PLAN: Altered Mental Status improved S/P Seizures s/p Acute Respiratory Failure Gram Positive Bacteremia likely contaminant Severe Sepsis resolved Lactic Acidosis resolved +Troponins likely Demand Ischemia Acute Kidney Injury CAD s/p CABG HTN Hypothyroidism Humeral fx - antibiotics as per ID - monitor urine output, creatinine - antiepileptics - DVT prophylaxis DR GRIDER
[2018-02-02] MEDS ORDERED: DEXTROSE 5%-WATER 100 ML IVPB ONE (09:02)
[2018-02-02] MEDS: levETIRAcetam 500 MG/5 ML INJECTION VIAL IVPB SCH ×2 (09:40→22:12)
[2018-02-02] MEDS: METOPROLOL TARTRATE 25 MG TABLET (FP) PO SCH ×2 (09:40→22:11)
[2018-02-02] MEDS: VENLAFAXINE HCL 75 MG TABLET PO SCH (09:40)
[2018-02-02] MEDS: CLOPIDOGREL BISULFATE 75 MG TABLET (FP) PO SCH (09:41)
[2018-02-02] MEDS: CEFTRIAXONE 2 GM in DEXTROSE 5%-WATER 100 ML IVPB SCH (09:42)
[2018-02-02] MEDS: RANITIDINE HCL 150 MG TABLET (FP) PO SCH ×2 (09:42→22:11)
[2018-02-02] MEDS ORDERED: LEVOTHYROXINE NA 25 MCG TABLET (FP) PO SCH ×2 (10:00→17:46)
--- NOTE | 2018-02-02 15:46 | PN ---
Progress Note (short form) - Note Progress Note: no SOB , no fever or chills . no events. pain in L upper arm is better Last Vital Signs Temp Pulse Resp BP Pulse Ox 98.2 F 79 18 139/83 98 02/02/18 13:51 02/02/18 13:51 02/02/18 13:51 02/02/18 13:51 02/02/18 09:00 Laboratory Results - last 24 hr 01/28/18 02/02/18 02/02/18 20:00 05:30 05:30 WBC 7.7 RBC 4.17 Hgb 12.2 Hct 35.0 L MCV 83.9 MCH 29.4 MCHC 35.0 RDW 13.3 Plt Count 181 D MPV 9.0 Absolute Neuts (auto) 5.7 Neutrophils % 75.0 Lymphocytes % 13.2 D Monocytes % 8.1 Eosinophils % 2.9 D Basophils % 0.8 Nucleated RBC % 0 Sodium 145 Potassium 3.7 Chloride 107 Carbon Dioxide 27 Anion Gap 11 BUN 9 Creatinine 0.6 L Creat Clearance w eGFR > 60 Random Glucose 116 H Calcium 8.2 L Phosphorus 3.9 D Magnesium 1.7 L Total Bilirubin 0.7 Direct Bilirubin 0.2 AST 201 H D ALT 127 H D Alkaline Phosphatase 107 D Total Protein 5.5 L Albumin 2.8 L HSV I DNA Quant (PCR) Negative HSV II DNA Quant (PCR) Negative PE: NAD, awake CV: RRR Lungs: CTAB Ext : no edema . L upper arm bruise Neuro: no facial droop. EOMI, round equal pupils strength :5/5 in R upper extremity proximally and distally.5/5 in LE proximally and distally bilaterally . LUE was not tested due to pain in shoulder Reflexes 2+ biceps and knee jerk bilaterally . skin : small bruise on skin at site of LP ( 2 cm in diameter ) ASSESSMENT AND PLAN: 67 y/o gentleman with h/o HTN, and metastatic prostate cancer who presented with AMS and had a tonic clonic seizure in ambulance 1- Seizure: - EEG done , pending read. MRI with no stroke , mets or acute process - cont keppra.d/w neuro , likely indefinitely 2- Sepsis and + blood cx with coag neg staph, likely contaminant - last day of ceftriaxone ( day 5 ) - repeat blood cx neg to date - monitor x 24 hr after stopping Abx 3- Transaminitis : steatosis . stable LFTS 4- NSTEMI: due to demand ischemia . - further w/u as out pt. might need stress test as out pt 5- L Humeral head Fx: sling. seen by ortho . L Hip xray with no FX 6-INGE : resolved . dispo : will monitor x 24 hr after stopping Abx. if no fever or leukocytosis, then can be d/c tomorrow . seen by PT ,needs SNF Visit type - Emergency Visit Emergency Visit: Yes ED Registration Date: 01/28/18 Care time: The patient presented to the Emergency Department on the above date and was hospitalized for further evaluation of their emergent condition. - New Patient This patient is new to me today: No - Critical Care Critical Care patient: No
[2018-02-03] MEDS: HEPARIN NA (PORCINE) 5,000 UNITS/ML 1ML VIAL SQ SCH ×2 (06:22→14:41)
[2018-02-03 07:50] LABS: BASO % 0.5 % (0-2.0); EOS % 2.8 % (0-4.5); HEMATOCRIT 35.6 % (35.4-49); HEMOGLOBIN 12.3 GM/dL (11.7-16.9); LYMPH % 14.2 % (8-40); MCH 29.2 pg (25.7-33.7); MCHC 34.7 g/dl (32.0-35.9); MEAN CELL VOLUME 84.2 fl (80-96); MEAN PLT VOLUME 8.9 fl (7.5-11.1); MONO % 6.5 % (3.8-10.2); PLATELET COUNT 193 K/MM3 (134-434); RBC 4.23 M/mm3 (4.00-5.60); RDW 13.3 % (11.9-15.9); WHITE BLOOD COUNT 8.5 K/mm3 (4.0-10.0)
[2018-02-03 08:05] LABS: ANION GAP 9 MMOL/L (8-16); BLOOD UREA NITROGEN 11 mg/dL (7-18); CALCIUM 8.4 mg/dL (8.5-10.1); CHLORIDE 105 mmol/L (98-107); CO2 29 mmol/L (21-32); CREATININE 0.7 mg/dL (0.7-1.3); GLUCOSE,RANDOM 121 mg/dL (74-106); POTASSIUM 3.8 mmol/L (3.5-5.1); SODIUM 143 mmol/L (136-145)
[2018-02-03] MEDS: METOPROLOL TARTRATE 25 MG TABLET (FP) PO SCH (09:09)
[2018-02-03] MEDS: RANITIDINE HCL 150 MG TABLET (FP) PO SCH (09:09)
[2018-02-03] MEDS: levETIRAcetam 500 MG/5 ML INJECTION VIAL IVPB SCH (09:09)
[2018-02-03] MEDS: VENLAFAXINE HCL 75 MG TABLET PO SCH (09:09)
[2018-02-03] MEDS: CLOPIDOGREL BISULFATE 75 MG TABLET (FP) PO SCH (09:09)
--- NOTE | 2018-02-03 09:50 | PN ---
Progress Note (short form) - Note Progress Note: 67 year old male history of prostate cancer, hypothyroidism, hypertension , came to hospital for confusion and had one episode of tonic clonic seizure. His csf seems to be benign and ct head was normal. His wbc was very high. Paitent is intubated and sedated. His utox was negative. He did have one more episode three weeks, when he has brief lase of Consiousness and urinary incontinence. SUBJECTIVE: He is feeling better, and no more seizure. NO hedache , eeg report pending NEUROLOGICAL EXAMINATION: He is alert oriented x 3, knows month and year but do not know exact date pupils is reactive, corneal and gag reflex is positive complain of left shoulder pain but no weakness identified no active seizure or twitching was seen He is moving all extremities ct unremarkable, EEG has been read, spoke to [email or web address], would be uploaded today mri of brain is normal Assessment- New onset seizure, no acute findings on ct scan , seizure is under control . mri of brain is unremarkable. He has another episode of seizure three week ago. Inview of two seizure , I would conintue AED for now PLAN 1.conitnue current dose of keppra and continue for now - Once he is discharged from hospital, I would follow up outpatient Thanking you so much Sherman Huggins MD
--- NOTE | 2018-02-03 11:27 | ECHO ---
Name: DEBRA DIAZ Exam:Adult Echocardiogram Study Date: 02/03/2018 07:38 AM Age: 67 yrs Reason For Study: CAD Height: 74 in Weight: 209 lb BSA: 2.2 m2 MMode/2D Measurements & Calculations IVSd: 1.2 cm Ao root diam: 3.5 cm LVIDd: 5.6 cm LA dimension: 4.0 cm LVIDs: 4.5 cm LVPWd: 1.1 cm EDV(Teich): 155.6 ml ESV(Teich): 92.2 ml Doppler Measurements & Calculations MV E max eric: 46.1 cm/sec AI P1/2t: 518.5 msec MV A max eric: 71.8 cm/sec MV E/A: 0.64 MV dec time: 0.27 sec AI max eric: 497.9 cm/sec Med Peak E' Eric: 4.2 cm/sec AI max P.2 mmHg Med E/e': 10.9 Lat Peak E' Eric: 4.2 cm/sec AI dec slope: 281.2 cm/sec2 Lat E/e': 10.9 PI Vmax: 162.9 cm/sec Procedure The study was technically adequate with some images being suboptimal in quality. Left Ventricle The left ventricular size, thickness and function are normal. Ejection Fraction = 50-55%. Grade I michele stolic dysfunction, (abnormal relaxation pattern). Right Ventricle The right ventricle is normal in size and function. Atria The left atrium is mildly dilated. The right atrium is mildly dilated. Mitral Valve The mitral valve is grossly normal. There is trace mitral regurgitation. Tricuspid Valve The tricuspid valve is not well visualized, but is grossly normal. There is trace tricuspid regurgita tion. There was insufficient TR detected to calculate RV systolic pressure. Aortic Valve The aortic valve opens well. There is mild aortic sclerosis.;. The aortic valve is trileaflet. Trace to mild aortic regurgitation. Pulmonic Valve The pulmonic valve is not well visualized. Trace pulmonic valvular regurgitation. Great Vessels The aortic root is normal size. Pericardium/Pleura There is no pericardial effusion. Interpretation Summary Compared to the prior echo report on 01/29/2018, there is no significant change. Trace to mild aortic regurgitation. The left atrium is mildly dilated. There is trace tricuspid regurgitation. Trace pulmonic valvular regurgitation. The left ventricular size, thickness and function are normal The right ventricle is normal in size and function. There is trace mitral regurgitation. The right atrium is mildly dilated. Amilcar Riley MD 02/03/2018 11:27 AM
--- NOTE | 2018-02-03 11:28 | PN ---
Physical Exam: SUBJECTIVE: Patient seen and examined at bedside. No acute events overnight. Patient denies any complaints today. Denies headache, seizures, dizziness, fevers, chills, shortness of breath, cough, chest pain, palpitations, abdominal pain, nausea, vomiting, diarrhea. OBJECTIVE: Vital Signs Period Temp Pulse Resp BP Sys/Quintero Pulse Ox Last 24 Hr 98.2 F-99.6 F 66-80 18-20 139-144/74-97 98 GENERAL: The patient is awake, alert, and oriented, in no acute distress. HEAD: Normocephalic, atraumatic EYES: PERRL, extraocular movements intact, sclera anicteric, conjunctiva clear. ENT: Oropharynx clear without exudates, moist mucous membranes. NECK: Supple without lymphadenopathy LUNGS: Breath sounds equal, clear to auscultation bilaterally, no wheezes, no crackles. HEART: Regular rate and rhythm, S1, S2 without murmur, rub or gallop. ABDOMEN: Soft, nontender, nondistended, normoactive bowel sounds, no guarding, no rebound, no hepatosplenomegaly. EXTREMITIES: 2+ pulses, warm, well-perfused, no edema. NEUROLOGICAL: Cranial nerves II through XII grossly intact. Normal speech. Strength 5/5 RUE flexion, extension, abduction. Strength 4/5 LUE flexion, extension, abduction. RLE hip flexion 4/5, knee flexion and extension 5/5. LLE hip flexion 4/5, knee flexion and extension 5/5. PSYCH: Normal mood, normal affect. SKIN: Warm, dry, normal turgor, no rashes or lesions noted Laboratory Results - last 24 hr 02/03/18 02/03/18 06:00 06:00 WBC 8.5 RBC 4.23 Hgb 12.3 Hct 35.6 MCV 84.2 MCH 29.2 MCHC 34.7 RDW 13.3 Plt Count 193 MPV 8.9 Absolute Neuts (auto) 6.5 Neutrophils % 76.0 Lymphocytes % 14.2 Monocytes % 6.5 Eosinophils % 2.8 Basophils % 0.5 Nucleated RBC % 0 Sodium 143 Potassium 3.8 Chloride 105 Carbon Dioxide 29 Anion Gap 9 BUN 11 Creatinine 0.7 Creat Clearance w eGFR > 60 Random Glucose 121 H Calcium 8.4 L Active Medications Generic Name Dose Route Start Last Admin Trade Name Freq PRN Reason Stop Dose Admin Acetaminophen 650 mg 01/31/18 14:43 02/01/18 09:41 Tylenol - PO 650 mg Q6H PRN Administration PAIN Albuterol Sulfate 1 amp 01/30/18 20:23 Ventolin 0.083% Nebulizer Soln - NEB Q4H PRN SHORT OF BREATH/WHEEZING Clopidogrel Bisulfate 75 mg 02/02/18 10:00 02/03/18 09:09 Plavix - PO 75 mg DAILY [facility] Administration Heparin Sodium (Porcine) 5,000 unit 01/30/18 22:00 02/03/18 06:22 Heparin - SQ 5,000 unit TID [facility] Administration Levetiracetam 1,000 mg 01/30/18 22:00 02/03/18 09:09 Keppra Injection - IVPB 1,000 mg BID [facility] Administration Levothyroxine Sodium 37.5 mcg 02/02/18 17:46 02/03/18 06:23 Synthroid - PO 37.5 mcg DAILY@0700 [facility] Administration Metoprolol Tartrate 12.5 mg 02/01/18 22:00 02/03/18 09:09 Lopressor - PO 12.5 mg BID [facility] Administration Oxycodone HCl 5 mg 01/31/18 17:51 01/31/18 21:58 Roxicodone - PO 5 mg Q6H PRN Administration PAIN LEVEL 6-10 Ranitidine HCl 150 mg 02/01/18 22:00 02/03/18 09:09 Zantac - PO 150 mg BID [facility] Administration Venlafaxine HCl 75 mg 02/02/18 10:00 02/03/18 09:09 Effexor - PO 75 mg DAILY [facility] Administration Patient was admitted with complaint of altered mental status and had episode of seizure in ambulance on route to hospital. Patient admitted that he had prior seizure three weeks before this incident. Seizures were treated with Keppra 1000mg IV BID. Upon admission, patient met sepsis criteria with WBC 34.2. He had lactic acidosis of 7.8 which resolved with IV fluids. He had elevated troponins which peaked at 0.43, likely due to demand ischemia. There was INGE with Cr of 1.7, likely secondary to seizure activity, which resolved with IV fluid hydration. He was started on Vancomycin 4 day course, and Ceftriaxone 5 day course. CSF culture was negative for growth. Blood cultures were initialy positive for Staph Hominis, however likely contamination, and subsequent blood cultures were negative for growth. Noncontrast head CT was negative for acute pathology. MRI brain showed no acute stroke. EEG result is pending, and will be followed outpatient. Echocardogram was done and showed normal LV function with EF 55-60%. Patient was found to have fracture of left humeral head on X-ray. The patient was seen by orthopedist and arm placed in sling. Left hip X-ray showed no fracture. Since admission, patient had no new seizures. He will need to follow up with neurology, cardiology for possible stress test, and orthopedist, as well as PCP within one week of discharge. Patient discharged on Keppra 1000mg BID, and Nystatin swish and swallow 5ml.
--- NOTE | 2018-02-03 11:45 | PN ---
Progress Note, CAR [facility]ACER - Note Progress Note: Per neurology- New onset seizure, no acute findings on ct scan , seizure is under control . mri of brain is unremarkable. He has another episode of seizure three week ago. Selected Entries 02/02/18 02/02/18 02/02/18 01:00 05:00 09:00 Breakfast Lunch Supper Temperature 98.4 F 98.2 F 98 F 02/02/18 02/02/18 02/02/18 10:56 13:51 13:52 Breakfast 100% Lunch 75% Supper Temperature 98.2 F 02/02/18 02/02/18 02/02/18 17:00 21:00 22:00 Breakfast Lunch Supper 75% Temperature 98.3 F 99.6 F 02/03/18 02/03/18 01:05 05:00 Breakfast Lunch Supper Temperature 98.3 F 98.3 F Laboratory Tests 02/03/18 06:00 WBC 8.5 Tolerating diet upgrade well. No further f/u indicated.
--- NOTE | 2018-02-03 13:42 | PN ---
Progress Note, Physician History of Present Illness: Pt seen and examined at bedside. Mental status is back to baseline. He denies dysuria or hematuria. - Current Medication List Current Medications: Active Medications Acetaminophen (Tylenol -) 650 mg PO Q6H PRN PRN Reason: PAIN Last Admin: 02/01/18 09:41 Dose: 650 mg Albuterol Sulfate (Ventolin 0.083% Nebulizer Soln -) 1 amp NEB Q4H PRN PRN Reason: SHORT OF BREATH/WHEEZING Clopidogrel Bisulfate (Plavix -) 75 mg PO DAILY [facility] Last Admin: 02/03/18 09:09 Dose: 75 mg Heparin Sodium (Porcine) (Heparin -) 5,000 unit SQ TID [facility] Last Admin: 02/03/18 06:22 Dose: 5,000 unit Levetiracetam (Keppra Injection -) 1,000 mg IVPB BID [facility] Last Admin: 02/03/18 09:09 Dose: 1,000 mg Levothyroxine Sodium (Synthroid -) 37.5 mcg PO DAILY@0700 [facility] Last Admin: 02/03/18 06:23 Dose: 37.5 mcg Metoprolol Tartrate (Lopressor -) 12.5 mg PO BID [facility] Last Admin: 02/03/18 09:09 Dose: 12.5 mg Oxycodone HCl (Roxicodone -) 5 mg PO Q6H PRN PRN Reason: PAIN LEVEL 6-10 Last Admin: 01/31/18 21:58 Dose: 5 mg Ranitidine HCl (Zantac -) 150 mg PO BID [facility] Last Admin: 02/03/18 09:09 Dose: 150 mg Venlafaxine HCl (Effexor -) 75 mg PO DAILY [facility] Last Admin: 02/03/18 09:09 Dose: 75 mg - Objective Vital Signs: Vital Signs Temperature 98 F 02/03/18 09:00 Pulse Rate 90 02/03/18 09:00 Respiratory Rate 18 02/03/18 09:00 Blood Pressure 140/90 02/03/18 09:00 O2 Sat by Pulse Oximetry (%) 98 02/03/18 09:00 Constitutional: Yes: Calm Eyes: Yes: Conjunctiva Clear HENT: Yes: Atraumatic Cardiovascular: Yes: S1, S2 Respiratory: Yes: CTA Bilaterally Gastrointestinal: Yes: Soft, Abdomen, Obese Genitourinary: Yes: WNL Musculoskeletal: Yes: WNL Edema: No Neurological: Yes: Oriented Psychiatric: Yes: Oriented Labs: CBC, BMP 02/03/18 06:00 02/03/18 06:00 INR, PTT INR 1.35 (0.83-1.09) H 01/30/18 05:30 Problem List - Problems (1) INGE (acute kidney injury) Code(s): N17.9 - ACUTE KIDNEY FAILURE, UNSPECIFIED (2) Hypothyroidism Code(s): E03.9 - HYPOTHYROIDISM, UNSPECIFIED (3) Lactic acidosis Code(s): E87.2 - ACIDOSIS (4) New onset seizure Code(s): R56.9 - UNSPECIFIED CONVULSIONS (5) Prostate cancer Code(s): C61 - MALIGNANT NEOPLASM OF PROSTATE Assessment/Plan Impression 1. INGE 2. seizure 3. altered mental status 4. HTN 5. resp failure 6. prostate cancer 7. CAD 8. hypothyroid 9. lactic acidosis 10. hypernatremia Plan - lytes are improved - repeat ua to see if blood and protein have resolved - mental status is back to baseline - if urine is abnormal can see in office for further workup - will follow PRN Dr Cain
--- NOTE | 2018-02-03 13:50 | PN ---
Teaching Attending Note Name of Resident: Edmund Quiros ATTENDING PHYSICIAN STATEMENT I saw and evaluated the patient. I reviewed the resident's note and discussed the case with the resident. I agree with the resident's findings and plan as documented. SUBJECTIVE: No fever or chills. No abd pain. No weakness, no numbness, tingling. pain in LUE is better. feels deconditioned inhis legs OBJECTIVE: NAD, awake. thrush in oropharynx CV: RRR Lungs: CTAB Ext : no edema . L upper arm bruise Neuro: no facial droop. EOMI, round equal pupils Strength: 5/5 in R upper extremity proximally and distally.5/5 in LE proximally and distally bilaterally . LUE was not tested due to pain in shoulder Reflexes 2+ biceps and knee jerk bilaterally . ASSESSMENT AND PLAN: 67 y/o gentleman with h/o HTN, and metastatic prostate cancer who presented with AMS and had a tonic clonic seizure in ambulance 1- Seizure: - Cont keppra. likely indefinitely - EEG report to be followed after dc 2- Sepsis and + blood cx with coag neg staph, likely contaminant. repeat blood cx neg x 96 hr . received ceftrixone x 5 days 3- Transaminitis : steatosis. stable LFTS 4- NSTEMI: due to demand ischemia . - further w/u as out pt. might need stress test as out pt 5- L Humeral head Fx: sling. seen by ortho . L Hip xray with no FX f/u with ortho as out pt 6-INGE : resolved . Dispo: dc to rehab today. d/w patient and his sister at bed side. all questions answered
[2018-02-03 15:16] VITALS: BP 148/95; PULSE 76; TEMP 98.2
--- NOTE | 2018-02-03 16:05 | DS ---
Physical Exam: SUBJECTIVE: Patient seen and examined at bedside. Patient doing well today, no acute complaints. No new seizures since admission. OBJECTIVE: Vital Signs Period Temp Pulse Resp BP Sys/Quintero Pulse Ox Last 24 Hr 98 F-99.6 F 66-90 18-20 140-148/74-97 98-98 PHYSICAL EXAM GENERAL: The patient is awake, alert, and fully oriented, in no acute distress. HEAD: Normal with no signs of trauma. EYES: PERRL, extraocular movements intact, sclera anicteric, conjunctiva clear. ENT: Oropharynx clear without exudates, moist mucous membranes. NECK: Supple withou lymphadenopathy LUNGS: Breath sounds equal, clear to auscultation bilaterally, no wheezes, no crackles, no accessory muscle use. HEART: Regular rate and rhythm, S1, S2 without murmur, rub or gallop. ABDOMEN: Soft, nontender, nondistended, normoactive bowel sounds, no guarding, no rebound, no hepatosplenomegaly, no masses. EXTREMITIES: 2+ pulses, warm, well-perfused, no edema. NEUROLOGICAL: Cranial nerves II through XII grossly intact. Normal speech. strength RUE 5/5 flexion, extension, abduction. LUE 4/5 flexion, extension, abduction d/t pain from fracture. B/L lower extremity strength 4/5 for hip flexion, knee flexion, extension, limited d/t soreness. PSYCH: Normal mood, normal affect. SKIN: Warm, dry, normal turgor, no rashes or lesions noted. LABS Laboratory Results - last 24 hr 01/28/18 02/03/18 02/03/18 20:00 06:00 06:00 WBC 8.5 RBC 4.23 Hgb 12.3 Hct 35.6 MCV 84.2 MCH 29.2 MCHC 34.7 RDW 13.3 Plt Count 193 MPV 8.9 Absolute Neuts (auto) 6.5 Neutrophils % 76.0 Lymphocytes % 14.2 Monocytes % 6.5 Eosinophils % 2.8 Basophils % 0.5 Nucleated RBC % 0 Sodium 143 Potassium 3.8 Chloride 105 Carbon Dioxide 29 Anion Gap 9 BUN 11 Creatinine 0.7 Creat Clearance w eGFR > 60 Random Glucose 121 H Calcium 8.4 L CSF West Nile IgG Ab Negative CSF West Nile IgM Ab Negative HOSPITAL COURSE: Date of Admission:01/28/18 Date of Discharge: 02/03/18 Patient was admitted with complaint of altered mental status and had episode of seizure in ambulance on route to hospital. Patient admitted that he had prior seizure three weeks before this incident. Seizures were treated with Keppra 1000mg IV BID. Upon admission, patient met sepsis criteria with WBC 34.2. He had lactic acidosis of 7.8 which resolved with IV fluids. He had elevated troponins which peaked at 0.43, likely due to demand ischemia. There was INGE with Cr of 1.7, likely secondary to seizure activity, which resolved with IV fluid hydration. He was started on Vancomycin 4 day course, and Ceftriaxone 5 day course. CSF culture was negative for growth. Blood cultures were initialy positive for Staph Hominis, however likely contamination, and subsequent blood cultures were negative for growth. Noncontrast head CT was negative for acute pathology. MRI brain showed no acute stroke. EEG result is pending, and will be followed outpatient. Echocardogram was done and showed normal LV function with EF 55-60%. Patient was found to have fracture of left humeral head on X-ray. The patient was seen by orthopedist and arm placed in sling. Left hip X-ray showed no fracture. Since admission, patient had no new seizures. He will need to follow up with neurology, cardiology for possible stress test, and orthopedist, as well as PCP within one week of discharge. Patient discharged on Keppra 1000mg BID, and Nystatin swish and swallow 5ml. Minutes to complete discharge: 30 Discharge Summary Reason For Visit: ALTERED MENTAL STATUS Current Active Problems INGE (acute kidney injury) (Acute) Altered mental state (Acute) New onset seizure (Acute) Hypothyroidism (Chronic) Prostate cancer (Chronic) Condition: Improved - Instructions Diet, Activity, Other Instructions: You were treated for new onset of seizures. You were stated on antiseizure medication (Keppra 1000mg twice a day). Since admission you have not had any seizures, however it is important that you follow up with your Neurologist, Sherman Mcknight within one week. You were found to have a fracture of your left arm. It is recommended that you use your arm sling. In addition, follow up with the orthopedist, Charly Holland within one week. Follow up with primary care physician in one week. At that appointment, you will need blood work done one week after discharge (CBC, CMP). Follow up with Cardiology within one week of discharge. You may need a stress test of the heart done at that appointment. Referrals: Sherman Huggins MD [Staff Physician] - 1 Week () Charly Hylton MD [Staff Physician] - 1 Week ON STAFF,NOT [Primary Care Provider] - 1 Week (Adalid Serra (Primary Care Physician) [facility] [address] [place] [address] Dr. Jason Glasgow, Direct Support Staff Member [address] [place] [id number]) Disposition: [facility] - Home Medications Comprehensive Discharge Medication List: Ambulatory Orders Clopidogrel Bisulfate [Clopidogrel] 75 mg PO DAILY 01/28/18 Levothyroxine [Synthroid -] 37.5 mcg PO DAILY 01/28/18 Metoprolol Tartrate [Lopressor -] 12.5 mg PO BID 01/28/18 Ranitidine [Zantac -] 150 mg PO BID 01/28/18 Venlafaxine HCl [Effexor -] 75 mg PO DAILY 01/28/18 Atorvastatin Calcium 40 tab PO HS 01/31/18 Miscellaneous Medical Supply [Outpatient Order] 1 each ASDIR #1 misc Nystatin Oral Suspension - [Nystatin Oral Susp 828761 Units/5 ML -] 5 ml PO BID #300 ml 02/03/18 Nystatin Oral Suspension - [Nystatin Oral Susp 191721 Units/5 ML -] 500,000 units PO Q6H #7 cup 02/03/18 levETIRAcetam [Keppra -] 1,000 mg PO BID #60 tablet 02/03/18 This patient is new to me today: Yes Date on this admission: 02/03/18 Emergency Visit: No Critical Care patient: No - Discharge Referral Referred to [facility] No
[2018-02-06 00:08] LABS: MUMPS AB IGG CSF < 5.0 AU/mL (<=10.9)
== END 2018-02-03 16:37 | DRG 871 ==
LOC: JER 16:37 → JERBED 20:37 → JICU 22:19 → J4W 01-30 20:24
PROVIDERS: ADMIT Internal Medicine; ATTEND Internal Medicine
PROC: 5A1935Z Respiratory Ventilation, Less than 24 Consecutive Hours (ICD-10-PCS; principal; 2018-01-28)
PROC: 0BH17EZ Insertion of Endotracheal Airway into Trachea, Via Natural or Artificial Opening (ICD-10-PCS; 2018-01-28)
DX: A41.9 Sepsis, unspecified organism (principal); I21.A1 Myocardial infarction type 2; S42.202A Unspecified fracture of upper end of left humerus, initial encounter for closed fracture; N17.9 Acute kidney failure, unspecified; E87.2 Acidosis; E87.0 Hyperosmolality and hypernatremia; E86.0 Dehydration; I10 Essential (primary) hypertension; E66.9 Obesity, unspecified; E03.9 Hypothyroidism, unspecified; R56.9 Unspecified convulsions; I25.10 Atherosclerotic heart disease of native coronary artery without angina pectoris; C61 Malignant neoplasm of prostate; R73.9 Hyperglycemia, unspecified; R65.20 Severe sepsis without septic shock; I45.10 Unspecified right bundle-branch block; R74.0 Nonspecific elevation of levels of transaminase and lactic acid dehydrogenase [LDH]; E87.6 Hypokalemia; R33.9 Retention of urine, unspecified; W19.XXXA Unspecified fall, initial encounter; Y93.89 Activity, other specified; Y92.002 Bathroom of unspecified non-institutional (private) residence as the place of occurrence of the external cause; Y99.8 Other external cause status; Z68.27 Body mass index [BMI] 27.0-27.9, adult
CPT/HCPCS: 36415; 36600; 70450-TC; 70552-TC; 71045-TC-FY; 71260-TC; 72125-TC; 73030-TC-LT-FY; 73060-TC-LT-FY; 73070-TC-LT-FY; 73502-TC-LT-FY; 74177-TC; 76705-TC; 80048; 80053; 80076; 80307; 81003; 81015; 82375; 82465; 82550; 82553; 82803; 82945; 82962; 83036; 83050; 83605; 83718; 83721; 83735; 84100; 84157; 84295; 84439; 84443; 84478; 84481; 84484; 85025; 85027; 85610; 86592; 86617; 86663; 86664; 86665; 86694; 86735; 86765; 86787; 86788; 86789; 86850; 86900; 86901; 87040; 87070; 87077; 87086; 87186; 87205; 87476; 87529; 87899; 93005; 93010; 93306-TC; 94002; 94640; 95816; 97116-GP; 97161-GP; 99285-25; G0480; J0131; J1644; J7030